=== PATIENT | male | born 1990 | race African-American/Black ===

== ENCOUNTER 2019-09-04 17:57 | Emergency (ER) | payer BC, SELFPAY ==
[2019-09-04 17:59] VITALS: BP 158/118; PULSE 118; RESP 20; TEMP 36.6; O2SAT 100
--- NOTE | 2019-09-04 18:02 | ED.SOB ---
HPI - SOB/Dyspnea General Chief Complaint: Shortness of Breath/Dyspnea Stated Complaint: SOB Time Seen by Provider: 09/04/19 18:14 Source: patient and RN notes reviewed Mode of arrival: ambulatory Limitations: no limitations History of Present Illness HPI Narrative: 29-year-old male presents with concern for shortness of breath. Reports shortness of breath started last night. He reports 2 isolated episodes of feeling short of breath. He denies cough, fever, body aches, rhinorrhea, nasal congestion, sore throat. He denies travel, exposure to any COVID-19 patients. Denies nausea, vomiting, diarrhea. Reports he started a new blood pressure medicine, hydrochlorothiazide, several days ago, and is aware that shortness of breath could be a side effect. MD elicited complaint: shortness of breath Related Data Home Medications Medication Instructions Recorded Confirmed amlodipine 10 mg PO DAILY 09/04/19 09/04/19 hydrochlorothiazide 09/04/19 09/04/19 Allergies Allergy/AdvReac Type Severity Reaction Status Date / Time No Known Allergies Allergy Verified 09/04/19 18:05 Review of Systems Review of Systems: Narrative: CONSTITUTIONAL: Denies malaise, chills, sweats, or fever. ENT: Denies rhinorrhea, congestion, sinus pain, otalgia or sore throat. CARDIOVASCULAR: Denies chest pain, palpitations, or edema. RESPIRATORY: Denies cough. Reports episodes of dyspnea. GASTROINTESTINAL: Denies abdominal pain, nausea, vomiting, diarrhea SKIN: Denies rash or itching. MUSCULOSKELETAL: Denies myalgia. NEUROLOGIC: Denies headache. All systems reviewed & are unremarkable except as noted in HPI and below PMFSH Comments At time of signature, agree with nursing past medical, surgical, social and family history. There is no relevant family history pertinent to the presenting complaint Exam Narrative: Exam Narrative: GENERAL: Well-appearing, well-nourished, and in no acute distress. HEAD: Normocephalic, atraumatic. EYES: PERRLA, conjunctivae clear ENT: Nares clear, turbinates mildly erythematous, no rhinorrhea or epistaxis. Mucous membranes moist. TM pearly jernigan with sharp light reflex bilaterally; no tragal tenderness. Oropharynx without erythema or lesions. Tonsils not enlarged and without exudate. NECK: Supple. No lymphadenopathy. CHEST: No respiratory distress. Clear to auscultation. No bony deformities, no asymmetry. Speaks in full sentences. HEART: Regular rate and rhythm. No murmur heard. SKIN: Warm, dry, no rash. NEURO: Alert and oriented x3. PSYCH: Normal mood and affect Course Course Emergency Course: Patient is aware of diagnosis, understands and agrees to treatment plan. Anticipatory guidance given. Patient agrees to follow-up as directed and is aware of reasons to seek care at the emergency department. Portions of this record may have been created with voice recognition software Vital Signs Vital signs: Vital Signs Temperature 97.8 F 09/04/19 17:59 Pulse Rate 118 H 09/04/19 17:59 Respiratory Rate 09/04/19 17:59 Blood Pressure 158/118 H 09/04/19 17:59 Pulse Oximetry 100 09/04/19 17:59 Temperature 97.8 F 09/04/19 17:59 Pulse Rate 118 H 09/04/19 17:59 Respiratory Rate 09/04/19 17:59 Blood Pressure 158/118 H 09/04/19 17:59 Pulse Oximetry 100 09/04/19 17:59 Reviewed. Patient has history of hypertension MDM - SOB/Dyspnea MDM Narrative Medical decision making narrative: Differential diagnosis considered: Coronavirus, medication side effect, strep pharyngitis, allergic rhinitis, upper respiratory tract infection, sinusitis, rhinosinusitis, nasopharyngitis. viral pharyngitis, otitis media, otitis externa, pneumonia, bronchitis, viral cough syndrome, viral syndrome, and influenza. Exam findings show no acute concerns or changes; patient is non-toxic appearing and is in no distress. Patient is appropriate for outpatient treatment and follow-up. Critical Care Time Critical Care Time Cri
== END 2019-09-04 18:28 | disposition home or self-care (01) ==
PROVIDERS: Emergency Provider Nurse Practitioner
DX: R06.02 Shortness of breath (principal); I10 Essential (primary) hypertension
CPT/HCPCS: 99201; G0463

== ENCOUNTER 2019-09-06 14:04 | Emergency (ER) | payer BC, SELFPAY ==
--- NOTE | ~2019-09-06 | XR_ITS ---
EXAMINATION: XR chest 2V 09/06/2019 14:18 INDICATION: Shortness of breath PROCEDURE: 2 view chest COMPARISON: No prior studies for comparison. FINDINGS: The lungs are clear. The cardiomediastinal silhouette is within normal limits. There are no pleural effusions. There is no pneumothorax suspected. IMPRESSION: 1: NO ACUTE CARDIOPULMONARY DISEASE. Reviewed, dictated and finalized at location A.
[2019-09-06 14:06] VITALS: BP 156/110; PULSE 124; RESP 18; TEMP 36.4; O2SAT 100
--- NOTE | 2019-09-06 14:10 | ECG_ITS ---
Measurements Intervals [place] Rate: 121 P: 48 [place]: 154 QRS: 7 QRSD: 101 T: 17 QT: 301 QTc: 429 Interpretive Statements SINUS TACHYCARDIA VOLTAGE CRITERIA FOR LVH BORDERLINE R WAVE PROGRESSION, ANTERIOR LEADS PEAKED T WAVES- CONSIDER HYPERKALEMIA OR ISCHEMIA ABNORMAL ECG Electronically Signed On 09-06-2019 15:27:44 CDT by Edward Rollins D.O.
[2019-09-06 14:27] LABS: Basophils Percent Auto 0.5 % (0.2-1.2); Eosinophils Absolute Auto 0.1 K/mm3 (0-0.3); Eosinophils Percent Auto 1.5 % (0-4.4); Hematocrit 49.7 % (42.0-52.0); Immature Granulocyte Absolute 0.01 K/mm3 (0.00-0.031); Immature Granulocyte Percent A 0.1 % (0-0.5); Lymphocytes Absolute Auto 3.35 K/mm3 (0.9-3.2); Lymphocytes Percent Auto 39.2 % (18.3-44.2); Mean Corpuscular HGB Conc 32.2 g/dl (32-36); Mean Corpuscular Hemoglobin 26.4 pg (26-34); Mean Platelet Volume 9.3 fl (7.4-10.4); Monocytes Absolute Auto 0.8 K/mm3 (0.1-0.6); Monocytes Percent Auto 9.7 % (2.6-8.5); Neutrophils Absolute Auto 4.2 K/mm3 (1.3-6.7); Platelet Count Result 365 k/mm3 (150-375); Red Blood Count 6.06 M/mm3 (4.6-6.20); Red Cell Distribution Width 13.2 % (11.5-14.5); White Blood Count 8.5 K/mm3 (4.5-10.0)
[2019-09-06 14:36] LABS: Blood Urea Nitrogen 11 mg/dL (9-20); Calcium 9.6 mg/dL (8.4-10.2); Carbon Dioxide 30 mmol/L (22-30); Chloride 96 mmol/L (98-107); Estimated CRCL calculation 97 ml/min; Estimated Glomerular Filt Rate > 60; Glucose 107 mg/dL (75-110); Potassium 3.3 mmol/L (3.4-5.0); Sodium 138 mmol/L (137-145)
--- NOTE | 2019-09-06 15:41 | ED.SOB ---
HPI - SOB/Dyspnea General Chief Complaint: Shortness of Breath/Dyspnea Stated Complaint: SOB Time Seen by Provider: 09/06/19 15:04 Source: patient Mode of arrival: ambulatory Limitations: no limitations History of Present Illness HPI Narrative: A 29 y/o male pt presents to the ED, with c/o SOB that began a couple of days ago. Pt states he was seen at urgent care for this Sx and was told to discontinue taking Hydrochlorothiazide that he was recently prescribed and to stay home for a few days and see if Sx improve. He notes that the SOB subsided, but yesterday he woke up and did not have the urge to urinate like he usually does upon waking up, but notes that he urinates because he knows he needs to empty his bladder. He also notes a decreased appetite. Pt denies fever, ABD pain, N/V/D, swelling to BLE, urinary incontinence, or hives or swelling. He states he had his blood work done last Sunday (08/29/2019) and the results were normal. MD elicited complaint: shortness of breath Pertinent past history: other (HTN) Onset (ago): day(s) Context: other (recently prescribed Hydrochlorothiazide) Associated symptoms: other (decreased appetite, no urge to urinate) Related Data Home Medications Medication Instructions Recorded Confirmed amlodipine 10 mg PO DAILY 09/04/19 09/04/19 hydrochlorothiazide 09/04/19 09/04/19 Allergies Allergy/AdvReac Type Severity Reaction Status Date / Time No Known Allergies Allergy Verified 09/06/19 14:09 Review of Systems Review of Systems: All systems reviewed & are unremarkable except as noted in HPI and below Constitutional: Constitutional: Denies fever(s) and Reports poor appetite Cardiovascular: Cardiovascular: Denies leg edema (BLE) Gastrointestinal: Gastrointestinal: Denies abdominal pain, Denies diarrhea, Denies nausea and Denies vomiting Genitourinary: Genitourinary: Denies urinary incontinence and Reports other (no urgency to urinate) Allergic/Immunologic: Allergic/Immunologic: Denies urticaria, Denies lip swelling, Denies throat swelling and Denies tongue swelling PMF Past Medical History Medical History (Updated 09/06/19 @ 15:58 by Cornelio Luna MD) Hypertension Surgical History Surgical History (Updated 09/06/19 @ 15:57 by RANJITH Michaels) Surgical history unknown Social History Social History (Updated 09/06/19 @ 15:58 by Juliane Keen [facility]) Smoking status: Unknown if ever smoked Gender identity (if verbalized by the patient): Male Exam Const: General: healthy appearing and no acute distress Nutritional Appearance: well nourished HENMT: Mouth: Yes lip normal and Yes moist mucous membranes Eyes: Conjunctivae: conjunctivae normal Pupils: Equal, round and reactive pupils present Resp: Effort & Inspection: normal respiratory effort Auscultation: clear to auscultation bilaterally Cardio: Rate: regular rate Rhythm: regular rhythm Heart sounds: no murmurs GI: GI Palp: No abdominal tenderness and Yes Soft to palpation Auscultation: normal bowel sounds Back/Spine/Pelvis: Other: Full ROM Skin: General skin exam: normal color, dry skin and other (warm) Neuro: General: patient oriented x3 (alert) Speech: normal speech Extrem: General: full ROM Psych: Mental Status: mental status grossly normal Affect: normal affect Course Vital Signs Vital signs: Vital Signs Temperature 36.4 C 09/06/19 14:06 Pulse Rate 124 H 09/06/19 14:06 Respiratory Rate 18 09/06/19 14:06 Blood Pressure 156/110 H 09/06/19 14:06 Pulse Oximetry 100 09/06/19 14:06 Temperature 36.4 C 09/06/19 14:06 Pulse Rate 87 09/06/19 16:35 Respiratory Rate 19 09/06/19 16:35 Blood Pressure 149/113 H 09/06/19 16:35 Pulse Oximetry 98 09/06/19 16:35 MDM - SOB/Dyspnea MDM Narrative Medical decision making narrative: His complaints do not raise concern for anything in particular. Labs are reassuring. BP is elevated and he will need follow-up fo
[2019-09-06 16:35] VITALS: BP 149/113; PULSE 87; RESP 19; O2SAT 98
== END 2019-09-06 16:36 | disposition home or self-care (01) ==
PROVIDERS: Emergency Medicine; Emergency Provider Emergency Medicine
DX: R63.0 Anorexia (principal); I10 Essential (primary) hypertension; R00.0 Tachycardia, unspecified; R94.31 Abnormal electrocardiogram [ECG] [EKG]
CPT/HCPCS: 36415; 71046; 80048; 85025; 93005; 99284

== ENCOUNTER 2020-10-06 11:50 | Emergency (ER) | payer OTHER, SELFPAY ==
[2020-10-06 12:00] VITALS: BP 164/98; PULSE 93; RESP 16; TEMP 36.9; O2SAT 100
--- NOTE | 2020-10-06 12:25 | ED.URI ---
HPI - URI/Sore Throat General Chief Complaint: Upper Respiratory Infection Stated Complaint: SWOLLEN TONSILS/GLANDS Source: patient Mode of arrival: ambulatory Limitations: no limitations History of Present Illness HPI Narrative: Patient is a 30 year old male who presents complaining of sore throat sudden onset this am. Patient reports feeling scratchy throat last pm but upon waking reports pain with swallowing and difficulty swallowing. Patient able to maintain secretions and airway patent. Patient denies fever, chills, body aches or other complaints. Patient denies significant medical history. He denies taking over the counter medications for pain prior to arrival. MD elicited complaint: sore throat Related Data Home Medications Medication Instructions Recorded Confirmed amlodipine 10 mg PO DAILY 09/04/19 09/04/19 hydrochlorothiazide 09/04/19 09/04/19 Allergies Allergy/AdvReac Type Severity Reaction Status Date / Time No Known Allergies Allergy Verified 09/06/19 14:09 Review of Systems Review of Systems: Narrative: CONSTITUTIONAL: Denies fever, chills, or sweats. EYES: Denies visual changes, redness, or discharge. ENT: Reports sore throat CARDIOVASCULAR: Denies chest pain, palpitations, or edema. RESPIRATORY: Denies cough or dyspnea. GASTROINTESTINAL: Denies abdominal pain, nausea, vomiting, or diarrhea. GENITOURINARY: Denies dysuria or hematuria. SKIN: Denies rash or itching. MUSCULOSKELETAL: Denies back pain, joint pain, or myalgia. NEUROLOGIC: Denies headache, numbness, dizziness, or weakness. PSYCHIATRIC: Denies anxiety or depression. [facility] Past Medical History Medical History Hypertension Surgical History Surgical History Surgical history unknown Social History Social History Smoking status: Never smoker Alcohol intake: current Alcohol use details: occasional Substance use: never Occupation/Education: occupation Gender identity (if verbalized by the patient): Male Comments At the time of signature, I have reviewed and agree with nursing past medical, surgical, social, and family history unless otherwise noted. Please see nursing chart for further information. There is no relevant family history pertinent to the presenting complaint. Exam Narrative: Exam Narrative: GENERAL: Well-appearing, well-nourished, and in no acute distress. HEAD: Normocephalic, atraumatic. EYES: EOMI. No redness or drainage. Conjunctiva are normal. ENT: Mucous membranes pink and moist. Nares clear. No rhinorrhea. Throat erythema and edema to right tonsil. Uvula midline. NECK: AROM. Supple. No lymphadenopathy. CHEST: No respiratory distress. HEART: Regular rate and rhythm. EXTREMITIES: Normal range of motion. SKIN: Warm, dry, no rash. NEURO: No focal deficits. Alert and oriented x3. Gait steady. PSYCH: Normal affect. No signs of depression or anxiety. Course Vital Signs Vital signs: Vital Signs Temperature 36.9 C 10/06/20 12:00 Pulse Rate 93 10/06/20 12:00 Respiratory Rate 16 10/06/20 12:00 Blood Pressure 164/98 H 10/06/20 12:00 Pulse Oximetry 100 10/06/20 12:00 Temperature 36.9 C 10/06/20 12:00 Pulse Rate 93 10/06/20 12:00 Respiratory Rate 16 10/06/20 12:00 Blood Pressure 164/98 H 10/06/20 12:00 Pulse Oximetry 100 10/06/20 12:00 Reviewed. Patient has not taken blood pressure medicine this a.m. Transfer Transfered to: [facility] Transfer rationale: Higher level of care Accepting physician: Dr. Parham, spoke with CALVIN Farah about patient condition. Transfer comments: Patient refuses EMS transport at this time. Patient is aware of possible complications, patient will drive self to hospital immediately. MDM - URI/Sore Throat MDM Narrative Medical decision making narrative: Patient appears
== END 2020-10-06 12:42 | disposition short-term general hospital (02) ==
PROVIDERS: Emergency Provider Nurse Practitioner; PCP Family Medicine
DX: J36 Peritonsillar abscess (principal); I10 Essential (primary) hypertension
CPT/HCPCS: 87081; 87880; 99213; G0463

== ENCOUNTER 2020-10-06 12:45 | Emergency (ER) | payer OTHER, SELFPAY ==
--- NOTE | ~2020-10-06 | CT_ITS ---
EXAMINATION: CT soft tissue neck w con DATE: 10/06/2020 15:22 INDICATION: Throat pain. TECHNIQUE: Computed tomography (CT) of the neck was performed with 75 mL Omnipaque-350 intravenous co ntrast. Automated exposure control and iterative reconstruction technique were employed. The dose-milo gth product was 625.32 mGy-cm. COMPARISON: None FINDINGS: The palatine tonsils are enlarged. There are areas of relative decreased attenuation in the palatine tonsils, consistent with phlegmon. No well-defined abscess. The epiglottis is normal. The c ervical carotid arteries are normal. There is mild bilateral internal jugular chain lymphadenopathy, likely reactive. There are mucous retention cysts in the maxillary sinuses. There is mild cervical sp ondylosis. IMPRESSION: 1. Enlarged palatine tonsils with areas of decreased attenuation, consistent with phlegmon. No well-d efined abscess. 2. Mild bilateral cervical lymphadenopathy, likely reactive. Reviewed, dictated and finalized at location B. IMPRESSION: 1. Enlarged palatine tonsils with areas of decreased attenuation, consistent wi th phlegmon. No well-defined abscess. 2. Mild bilateral cervical lymphadenopathy, likely reactive.
[2020-10-06 12:51] VITALS: BP 160/94; PULSE 95; RESP 20; TEMP 36.5; O2SAT 99
--- NOTE | 2020-10-06 13:27 | ED.GENADULT ---
HPI - General Adult General Chief complaint: Upper Respiratory Infection <CALVIN Bullock Last Filed: 10/06/20 14:51> Stated complaint: swollen tonsils <CALVIN Bullock Last Filed: 10/06/20 14:51> Time Seen by Provider: 10/06/20 13:26 <Joe Mobley PA-C - Last Filed: 10/06/20 14:51> History of Present Illness HPI narrative: Patient is a 30-year-old male who comes to the ED today complaining of a sore throat. Patient reports that yesterday he developed a sore throat that he says is pretty mild. However it does feel swollen and he says that when he eats solid foods it feels like they are getting stuck. He is not vomiting. He is tolerating liquids fine. He denies previous history of similar symptoms, denies any fevers, denies any coughing or sinus congestion or any other symptoms. Was seen in urgent care prior to arrival and was sent into the ED today for possible peritonsillar abscess. <CALVIN Bullock Last Filed: 10/06/20 14:51> Related Data Home medications: Home Medications Medication Instructions Recorded Confirmed amlodipine 10 mg PO DAILY 09/04/19 09/04/19 hydrochlorothiazide 09/04/19 09/04/19 <Joe Mobley PA-C - Last Filed: 10/06/20 14:51> Allergies/adverse reactions: Allergies Allergy/AdvReac Type Severity Reaction Status Date / Time No Known Allergies Allergy Verified 10/06/20 12:54 <CALVIN Bullock Last Filed: 10/06/20 14:51> Review of Systems Constitutional: Constitutional: Reports as per HPI, Denies fever(s), Denies night sweats and Denies weakness <CALVIN Bullock Last Filed: 10/06/20 14:51> ENT: Reports as per HPI <CALVIN Bullock Last Filed: 10/06/20 14:51> Comments: See HPI <CALVIN Bullock Last Filed: 10/06/20 14:51> Cardiovascular: Cardiovascular: Denies chest pain, Denies edema, Denies leg edema, Denies dyspnea and Denies orthopnea <Joe MobleyRENETTADayna Last Filed: 10/06/20 14:51> Respiratory: Respiratory: Denies cough and Denies dyspnea <Joe MobleyRENETTA - Last Filed: 10/06/20 14:51> Gastrointestinal: Gastrointestinal: Denies abdominal pain, Denies constipation, Denies diarrhea, Denies nausea and Denies vomiting <Joe MobleyRENETTA - Last Filed: 10/06/20 14:51> Musculoskeletal: Musculoskeletal: Denies abnormal gait, Denies back pain, Denies numbness and Denies tingling <Joe MobleyRENETTA - Last Filed: 10/06/20 14:51> Neurologic: Denies Abnormal speech present, Denies abnormal gait, Denies numbness, Denies tingling and Denies weakness <Joe MobleyRENETTADayna - Last Filed: 10/06/20 14:51> Psychiatric: Psychiatric: Denies homicidal ideation and Denies suicidal ideation <Joe MarquesRENETTA read Last Filed: 10/06/20 14:51> [facility] Past Medical History Medical History: Medical History Hypertension <Joe MobleyRENETTADayna Last Filed: 10/06/20 14:51> Surgical History Surgical History: Surgical History Surgical history unknown <Joe MarquesdusCALVIN Last Filed: 10/06/20 14:51> Social History Social History: Social History Smoking status: Never smoker Alcohol intake: current Substance use: never Gender identity (if verbalized by the patient): Male <Joe MarquesCALVIN raed Last Filed: 10/06/20 14:51> Exam Const: General: cooperative, healthy appearing, comfortable, no acute distress, well developed, alert, awake and Physically active <Joe Mobley PA-C - Last Filed: 10/06/20 14:51> Orientation/consciousness: patient oriented x3 <Joe Mobley PA-C - Last Filed: 10/06/20 14:51> Other: Pleasant, well-appearing, no distress <Joe Mobley PA-C - Last Filed: 10/06/20 14:51> HENMT: He
[2020-10-06 14:52] LABS: Basophils Absolute Auto 0.1 K/mm3 (0.0-0.1); Basophils Percent Auto 0.6 % (0.2-1.2); Eosinophils Absolute Auto 0.3 K/mm3 (0-0.3); Eosinophils Percent Auto 3.1 % (0-4.4); Hematocrit 44.3 % (42.0-52.0); Hemoglobin 14.8 g/dL (14.0-18.0); Immature Granulocyte Absolute 0.02 K/mm3 (0.00-0.031); Immature Granulocyte Percent A 0.2 % (0-0.5); Lymphocytes Absolute Auto 1.59 K/mm3 (0.9-3.2); Lymphocytes Percent Auto 18.2 % (18.3-44.2); Mean Corpuscular HGB Conc 33.4 g/dl (32-36); Mean Corpuscular Hemoglobin 27.7 pg (26-34); Mean Platelet Volume 9.1 fl (7.4-10.4); Monocytes Percent Auto 11.5 % (2.6-8.5); Neutrophils Absolute Auto 5.8 K/mm3 (1.3-6.7); Neutrophils Percent Auto 66.4 % (45.5-73.1); Platelet Count Result 298 k/mm3 (150-375); Red Blood Count 5.34 M/mm3 (4.6-6.20); Red Cell Distribution Width 13.6 % (11.5-14.5); White Blood Count 8.8 K/mm3 (4.5-10.0)
[2020-10-06] MEDS: SODIUM CHLORIDE 0.9% IV 1,000 ML 999 ML IV CONT (14:54)
[2020-10-06] MEDS: KETOROLAC 30 MG/ML VIAL (*BKC) IV PUSH (14:55)
[2020-10-06 15:02] LABS: Anion Gap 6 mmol/L (8-16); Blood Urea Nitrogen 11 mg/dL (9-20); Calcium 8.9 mg/dL (8.4-10.2); Carbon Dioxide 32 mmol/L (22-30); Chloride 100 mmol/L (98-107); Estimated CRCL calculation 100 ml/min; Estimated Glomerular Filt Rate > 60; Glucose 91 mg/dL (75-110); Potassium 3.7 mmol/L (3.4-5.0); Sodium 138 mmol/L (137-145)
[2020-10-06 15:09] VITALS: BP 152/80; PULSE 78; RESP 18; O2SAT 99
[2020-10-06] MEDS: AMPICILLIN SULB 3 GM/NS 100 ML 3 GM/100 ML VIAL IVPB (16:34)
[2020-10-06 17:31] VITALS: BP 132/78; PULSE 78; RESP 18; O2SAT 99
== END 2020-10-06 17:33 | disposition home or self-care (01) ==
PROVIDERS: Emergency Provider Emergency Medicine; PCP Family Medicine
DX: J03.90 Acute tonsillitis, unspecified (principal); I10 Essential (primary) hypertension
CPT/HCPCS: 36415; 70491; 80048; 85025; 87081; 87880; 96361; 96365; 96375; 99284; J0295; J1100; J1885; J7030; Q9967

== ENCOUNTER 2020-12-20 13:37 | Emergency (ER) | payer SELFPAY ==
[2020-12-20 13:50] VITALS: BP 166/107; PULSE 86; RESP 16; TEMP 36.4; O2SAT 100
--- NOTE | 2020-12-20 14:28 | ED.GENADULT ---
HPI - General Adult General Chief complaint: Unspecified Stated complaint: refill for prescription Source: patient and RN notes reviewed Limitations: no limitations History of Present Illness HPI narrative: The obese patient, who is a drinker/non-smoker, presents with medication refill. Patient states has been out if his blood pressure pills for several weeks and now wants a refill-as he has no current physician. He is asymptomatic without CP, S OB, head?chest?abdominal pain, lateralizing weakness, speech?visual changes. He is uncertain of his past blood pressures, today is 160s / 100s Related Data Home Medications Medication Instructions Recorded Confirmed escitalopram oxalate mg 12/20/20 losartan-hydrochlorothiazide tablet 12/20/20 Allergies Allergy/AdvReac Type Severity Reaction Status Date / Time No Known Allergies Allergy Verified 10/06/20 12:54 Review of Systems Review of Systems: Narrative: General/Constitutional: No weight loss,fever Eyes: N0: Redness,discharge Ears/Nose/Throat: No: Epistaxis,ear discharge Respiratory: Denies: Hemoptysis Gastrointestinal: No Vomiting, Bleeding-rectal Skin: No Lumps, eruption Neurologic: No Focal Weakness,Sz Hematologic: Denies: Petechiae/Purpura Psychiatric: No: Suicida ideationl All Other Systems: Reviewed and Negative [facility] Past Medical History Medical History Hypertension Surgical History Surgical History Surgical history unknown Social History Social History Smoking status: Never smoker Alcohol intake: current Substance use: never Gender identity (if verbalized by the patient): Male Comments At time of signature, agree with nursing past medical, surgical, social and family history. There is no relevant family history pertinent to the presenting complaint Exam Narrative: Exam Narrative: General Appearance: Well appearing, No distress Conjunctiva clear Mouth/Throat: Normal appearing, Normal lips, Supple Respiratory: Airway patent, No respiratory distress Cardiovascular: RRR Musculoskeletal: Full ROM Skin: Warm, Dry Neurological: A&O x3, CN II-X intact Psychiatric: Normal mood, Normal affect Course Vital Signs Vital signs: Vital Signs Temperature 97.6 F 12/20/20 13:50 Pulse Rate 86 12/20/20 13:50 Respiratory Rate 16 12/20/20 13:50 Blood Pressure 166/107 H 12/20/20 13:50 Pulse Oximetry 100 12/20/20 13:50 Temperature 97.6 F 12/20/20 13:50 Pulse Rate 86 12/20/20 13:50 Respiratory Rate 16 12/20/20 13:50 Blood Pressure 166/107 H 12/20/20 13:50 Pulse Oximetry 100 12/20/20 13:50 Medical Decision Making Vital Signs Vital Signs: Vital Signs Temperature 97.6 F 12/20/20 13:50 Pulse Rate 86 12/20/20 13:50 Respiratory Rate 16 12/20/20 13:50 Blood Pressure 166/107 H 12/20/20 13:50 Pulse Oximetry 100 12/20/20 13:50 Temperature 97.6 F 12/20/20 13:50 Pulse Rate 86 12/20/20 13:50 Respiratory Rate 16 12/20/20 13:50 Blood Pressure 166/107 H 12/20/20 13:50 Pulse Oximetry 100 12/20/20 13:50 Discharge Plan Discharge Clinical Impression: Medical non-compliance Hypertension Qualifiers: Hypertension type: unspecified Qualified Code(s): I10 - Essential (primary) hypertension Patient Disposition: Home, Self-Care Condition: Stable Instructions: Hypertension (ED) Prescriptions: New losartan-hydrochlorothiazide 100-25 mg tablet 1 tablet PO DAILY Qty: 60 RF: 3 No Action losartan-hydrochlorothiazide 100-25 mg tablet RF: 0 escitalopram oxalate 10 mg tablet RF: 0 Follow-up/Referrals: UNKNOWN,DOCTOR [Primary Care Provider] -
== END 2020-12-20 14:20 | disposition home or self-care (01) ==
PROVIDERS: Emergency Provider Emergency Medicine
DX: I10 Essential (primary) hypertension (principal); Z91.14 Patient's other noncompliance with medication regimen
CPT/HCPCS: 99211; G0463

== ENCOUNTER 2022-05-08 15:48 | Emergency (ER) | payer SELFPAY ==
[2022-05-08 15:54] VITALS: BP 159/102; PULSE 97; RESP 16; TEMP 37; O2SAT 99
--- NOTE | 2022-05-08 17:13 | ED.GENADULT ---
HPI - General Adult General Chief complaint: Abdominal Pain Stated complaint: numbness in stomach Time Seen by Provider: 05/08/22 16:53 History of Present Illness HPI narrative: 32-year-old male presents to the emergency room with multiple complaints. Patient reports issues with insomnia over the past 3 weeks, stating that he does not feel that he has slept restfully in the last 4 days. Patient has a history of hypertension and anxiety, and has been getting treatment from an online physician for his anxiety. Patient is taking Lexapro which she states does not help with his anxiety or his insomnia. Patient also complains of brain fog and abdominal numbness , which have been been exacerbated due to the lack of sleep. Patient endorses snoring, and feeling sleepy throughout the day. Related Data Home Medications Medication Instructions Recorded Confirmed escitalopram oxalate 10 mg tablet mg 12/20/20 losartan 100 tablet 12/20/20 mg-hydrochlorothiazide 25 mg tablet Allergies Allergy/AdvReac Type Severity Reaction Status Date / Time No Known Allergies Allergy Verified 10/06/20 12:54 Review of Systems Review of Systems: CONSTITUTIONAL: Denies fever, chills, or sweats. EYES: Denies visual changes, redness, or discharge. ENT: Denies rhinorrhea, congestion, sore throat, or otalgia. CARDIOVASCULAR: Denies chest pain, palpitations, or edema. RESPIRATORY: Denies cough or dyspnea. GASTROINTESTINAL: Denies abdominal pain, nausea, vomiting, or diarrhea. GENITOURINARY: Denies dysuria or hematuria. SKIN: Denies rash or itching. MUSCULOSKELETAL: Denies back pain, joint pain, or myalgia. NEUROLOGIC: Denies headache, numbness, dizziness, or weakness. PSYCHIATRIC: Reports PMFSH Past Medical History Medical History Hypertension Surgical History Surgical History Surgical history unknown Social History Social History Smoking status: Never smoker Alcohol intake: current Alcohol use details: occasional Substance use: never Gender identity (if verbalized by the patient): Male Exam Narrative: GENERAL: Well-appearing, well-nourished, no physical limitations, and in no acute distress. HEAD: Normocephalic, atraumatic. EYES: Conjunctivae normal, PERRLA and EOMI. NECK: Supple. No adenopathy or masses. CHEST: Clear to auscultation. No respiratory distress. No wheezes rales or rhonchi. HEART: Regular rate and rhythm. No murmur heard. Normal peripheral pulses. ABDOMEN: Soft, nontender, nondistended, normal active bowel sounds. EXTREMITIES: Normal range of motion. No edema. No clubbing or cyanosis SKIN: Warm, dry, no rash. No noted wounds NEURO: No focal deficits. Alert and oriented x3. MAEW. CN's II-XI intact bilaterally, normal gait PSYCH: Cooperative. Normal mood and affect. Course Vital Signs Vital signs: Vital Signs Temperature 37.0 C 05/08/22 15:54 Pulse Rate 97 05/08/22 15:54 Respiratory Rate 16 05/08/22 15:54 Blood Pressure 159/102 H 05/08/22 15:54 Pulse Oximetry 99 05/08/22 15:54 Temperature 37.0 C 05/08/22 15:54 Pulse Rate 97 05/08/22 15:54 Respiratory Rate 16 05/08/22 15:54 Blood Pressure 159/102 H 05/08/22 15:54 Pulse Oximetry 99 05/08/22 15:54 Medical Decision Making Vital Signs Vital Signs: Vital Signs Temperature 37.0 C 05/08/22 15:54 Pulse Rate 97 05/08/22 15:54 Respiratory Rate 16 05/08/22 15:54 Blood Pressure 159/102 H 05/08/22 15:54 Pulse Oximetry 99 05/08/22 15:54 Temperature 37.0 C 05/08/22 15:54 Pulse Rate 97 05/08/22 15:54 Respiratory Rate 16 05/08/22 15:54 Blood Pressure 159/102 H 05/08/22 15:54 Pulse Oximetry 99 05/08/22 15:54 Discharge Plan Discharge Clinical Impression: Insomnia Patient Disposition: Home, Self-Care Cond
== END 2022-05-08 17:29 | disposition home or self-care (01) ==
PROVIDERS: Emergency Provider Nurse Practitioner Family
DX: G47.00 Insomnia, unspecified (principal); I10 Essential (primary) hypertension
CPT/HCPCS: 99283

== ENCOUNTER 2022-05-29 15:45 | Outpatient (CLI) | payer SELFPAY ==
[2022-05-29 18:58] LABS: Alanine Aminotransferase 35 U/L (6-50); Albumin Level 4.2 g/dL (3.5-5.1); Alkaline Phosphatase 106 U/L (38-126); Anion Gap 5 mmol/L (8-16); Aspartate Amino Transferase 40 U/L (17-59); Basophils Percent Auto 0.5 % (0.2-1.2); Bilirubin,Total 0.3 mg/dL (0.2-1.3); Blood Urea Nitrogen 10 mg/dL (9-20); Calcium 8.1 mg/dL (8.4-10.2); Carbon Dioxide 30 mmol/L (22-30); Chloride 101 mmol/L (98-107); Eosinophils Absolute Auto 0.2 K/mm3 (0-0.3); Eosinophils Percent Auto 2.8 % (0-4.4); Estimated Glomerular Filt Rate > 60; Glucose 109 mg/dL (65-110); Hematocrit 43.7 % (42.0-52.0); Hemoglobin 13.9 g/dL (14.0-18.0); Immature Granulocyte Absolute 0.01 K/mm3 (0.00-0.031); Immature Granulocyte Percent A 0.2 % (0-0.5); Lymphocytes Absolute Auto 2.68 K/mm3 (0.9-3.2); Mean Corpuscular HGB Conc 31.8 g/dl (32-36); Mean Corpuscular Hemoglobin 26.9 pg (26-34); Mean Corpuscular Volume 84.5 fl (80-100); Mean Platelet Volume 9.5 fl (7.4-10.4); Monocytes Absolute Auto 0.8 K/mm3 (0.1-0.6); Monocytes Percent Auto 12.5 % (2.6-8.5); Neutrophils Absolute Auto 2.8 K/mm3 (1.3-6.7); Platelet Count Result 319 k/mm3 (150-375); Potassium 3.5 mmol/L (3.4-5.0); Red Blood Count 5.17 M/mm3 (4.6-6.20); Sodium 136 mmol/L (137-145); White Blood Count 6.5 K/mm3 (4.5-10.0)
[2022-05-29 21:12] LABS: Vitamin D 25 Hydroxy < 12.8 ng/mL
== END 2022-05-29 15:46 | disposition home or self-care (01) ==
LOC: ANHGOSHLAB 15:46
PROVIDERS: PCP Family Medicine; Visit Provider Family Medicine
DX: Z00.00 Encounter for general adult medical examination without abnormal findings (principal); E55.9 Vitamin D deficiency, unspecified; R73.03 Prediabetes; I10 Essential (primary) hypertension; G47.00 Insomnia, unspecified
CPT/HCPCS: 36415; 80053; 82306; 83036; 84443; 85025

== ENCOUNTER 2022-05-31 12:39 | Outpatient (CLI) | payer SELFPAY ==
[2022-05-31 19:30] LABS: Cholesterol 169 mg/dL (0-200); HDL Direct 31 mg/dL; Triglycerides 88 mg/dL (<150)
[2022-05-31 19:40] LABS: LDL Cholesterol Direct 113 mg/dL
== END 2022-05-31 12:40 | disposition home or self-care (01) ==
LOC: ANHGOSHLAB 12:39
PROVIDERS: PCP Family Medicine; Visit Provider Family Medicine
DX: Z13.220 Encounter for screening for lipoid disorders (principal)
CPT/HCPCS: 36415; 80061

== ENCOUNTER 2022-07-25 08:16 | Outpatient (CLI) | payer SELFPAY ==
--- NOTE | 2022-07-31 19:48 | WPDHOMESLEEP ---
Sleep Study - Home Unattended Date of Study: 07/25/22 Ordering Provider: Susannah Muse DO Interpreting Provider: Susannah Muse DO Home Sleep Study Type: Watch PAT Height: 1.8 m Weight: 104.326 kg Body Mass Index: 32.1 Neck Circumference (inches): 18 [place]: 0 Reason for Sleep Study Insomnia Sleep History The patient is a 32-year-old male with hypertension, anxiety and eczema that had a sleep study ordered for evaluation of insomnia. The patient denies awakening from sleep short of breath. He denies awakening at night with heartburn, belching or cough. He constantly snores loud enough that others complain. He occasionally has trouble sleeping when he has a cold. He denies waking up gasping for air throughout the night. He denies having breathing problems at night observed by himself or others. He denies sweating excessively at night. He denies having heart palpitations or irregular heartbeats during the night. He denies falling asleep during the day and while driving. He denies sleep paralysis, cataplexy and hypnagogic / hypnopompic hallucinations. He constantly has trouble at school or work due to sleepiness. He denies feeling afraid of going to sleep. He denies having nightmares. He denies remember his dreams. He constantly has thoughts racing through his mind. He constantly feels sad or depressed. He frequently has anxiety. He denies having muscular tension. He denies noticing parts of his body jerk. He denies kicking during the night. He denies having crawling and aching feelings in his legs as well as leg pain during the night. He rarely grinds his teeth during sleep but denies awakening with morning jaw pain. He denies being bothered by pain during the day and denies being awakened by pain during the night. He denies waking up feeling stiff in the morning. He denies waking up with sore achy muscles. He denies waking up with pain in the neck, spine or other joints. He goes to bed at 11:00 p.m. on weekdays and at 1:00 a.m. on the weekends. He states that he is unable to fall asleep. He wakes up at 8:00 a.m. on weekdays and at 10:00 a.m. on the weekends. He does not think he gets any sleep throughout the entire night. He currently lives with a sister. He does not consume any caffeinated beverages within 2 hours of bedtime. He does not engage in physical exercise before bedtime. He denies reading and watching television before falling asleep. He denies taking naps in the afternoon or the evening. He will drink 1 caffeinated beverage per day. He denies tobacco, alcohol and recreational drug use. REPLACED BY [facility] Past Medical History Medical History Anxiety Depression with anxiety Essential (primary) hypertension Insomnia Prediabetes Vitamin D deficiency Surgical History Surgical History Surgical history unknown Family History Family History Father Diabetes mellitus Hypertension Heart problem Mother Hypertension Social History Social History Smoking status: Never smoker Alcohol intake: current Alcohol use details: occasional Substance use: never Lack of Transportation: No Lack of Food: Never True Current Housing: I Have Housing Concerned About Future Housing: No Difficulty Paying Gas/Electric Bills: No Difficulty Paying for Meds: No Currently Unemployed: No Education: High School Diploma/GED Difficulty w/ Childcare or Family Care: No Living arrangements: with family Occupation/Education: student Gender identity (if verbalized by the patient): Male Medications Home Medications Medication Instructions Recorded Confirmed Type triamcinolone acetonide 0.5 % 1 applic topical DAILY #30 grams 05/24/22 07/18/22 Rx topical c
[2022-07-31 20:01] VITALS: BMI 32.1
== END 2022-07-27 09:25 | disposition home or self-care (01) ==
PROVIDERS: PCP Family Medicine; Visit Provider Family Medicine
DX: G47.33 Obstructive sleep apnea (adult) (pediatric) (principal)
CPT/HCPCS: 95800

== ENCOUNTER 2022-09-08 14:06 | Outpatient (CLI) | payer OTHER, SELFPAY ==
--- NOTE | ~2022-09-08 | XR_ITS ---
EXAMINATION: XR chest 2V 09/08/2022 14:36 INDICATION: Reaction to gamma interferon PROCEDURE: 2 view chest COMPARISON: 09/06/2019 FINDINGS: The lungs are clear. The cardiomediastinal silhouette is within normal limits. There are no pleural effusions. There is no pneumothorax suspected. IMPRESSION: 1: NO ACUTE CARDIOPULMONARY DISEASE. Reviewed, dictated and finalized at location A.
== END 2022-09-08 14:07 | disposition home or self-care (01) ==
PROVIDERS: PCP Family Medicine; Visit Provider Pediatrics
DX: R76.12 Nonspecific reaction to cell mediated immunity measurement of gamma interferon antigen response without active tuberculosis (principal)
CPT/HCPCS: 71046

== ENCOUNTER 2023-03-01 23:28 | Emergency (ER) | payer SELFPAY ==
--- NOTE | ~2023-03-01 | CT_ITS ---
Non-contrast Head CT History: Facial numbness Technique: Axial non-contrast imaging of the brain was performed. Dose reduction technique was used on this scan by utilizing automated exposure control and iterative reconstruction technique. The dose -length product (DLP) was 605.33 mGy-cm. Findings: There is no evidence of intracranial hemorrhage, mass lesion, or acute infarct. Brain par enchyma appears normal. The ventricles and subarachnoid spaces are normal in size. The calvarium ap pears normal. The visualized paranasal sinuses and mastoid air cells are clear. Impression: No significant abnormality seen. Reviewed, dictated and finalized at location . Impression: No significant abnormality seen.
--- NOTE | ~2023-03-01 | XR_ITS ---
Portable chest x-ray Comparison: 09/08/2022 Clinical History: Shortness of breath Findings: Lungs are clear, without focal consolidation or pleural effusion. Cardiomediastinal silho uette is stable. Bones and soft tissues are unremarkable. Impression: Normal chest. Reviewed, dictated and finalized at location . Impression: Normal chest.
[2023-03-01 23:34] VITALS: BP 181/99; PULSE 101; RESP 16; TEMP 36.6; O2SAT 100
[2023-03-02 00:45] VITALS: PULSE 93
--- NOTE | 2023-03-02 00:45 | ECG_ITS ---
Measurements Intervals [place] Rate: 90 P: 27 NV: 151 QRS: 61 QRSD: 105 T: 52 QT: 350 QTc: 430 Interpretive Statements SINUS RHYTHM DELAYED PRECORDIAL R/S TRANSITION ST ELEVATION IN ANTEROLAT/INF LEADS- PROBABLY EARLY REPOLARIZATION ABNORMALITY BORDERLINE ECG COMPARED TO ECG 09/06/2019 14:12:00 SINUS RHYTHM NOW PRESENT Electronically Signed On 03-02-2023 6:32:41 CDT by Edward Rollins D.O.
[2023-03-02 00:46] VITALS: BP 162/99; PULSE 93; RESP 20; O2SAT 100
[2023-03-02 00:47] VITALS: BP 162/99; PULSE 94; RESP 22; O2SAT 100
[2023-03-02 02:56] VITALS: BP 133/83; PULSE 87; RESP 15; O2SAT 100
--- NOTE | 2023-03-02 03:11 | PC.NURSE ---
SEE DOWN TIME CHARTING FROM APROX [id number]. DELLA MYERS
[2023-03-02 03:13] LABS: Magnesium 2.4 mg/dL (1.6-2.3); Troponin I < 0.012 ng/mL (0.000-0.034)
--- NOTE | 2023-03-02 03:16 | ED.GENADULT ---
HPI - General Adult General Chief complaint: Unspecified Stated complaint: sob, tingling in right hand, tingling in face Time Seen by Provider: 03/02/23 01:04 History of Present Illness HPI narrative: Patient is a 33-year-old gentleman who presents the emergency department with chief complaint of shortness of breath and tingling in his hands and face. Patient reports that he is recently been diagnosed with sleep apnea reports has been working on therapy with CPAP patient states that he had an appointment scheduled with his sleep doctor but has a cancellation that was done by the doctor's office patient states that for several days he has had episodes where he is short of breath and gets tingling in his hands and also around his mouth patient states has been going on for multiple days reports that it is intermittent and reports currently it is resolved Related Data Home Medications Medication Instructions Recorded Confirmed amitriptyline 25 mg tablet 25 mg PO QHS 11/16/22 11/16/22 Allergies Allergy/AdvReac Type Severity Reaction Status Date / Time No Known Allergies Allergy Verified 03/02/23 00:45 Review of Systems Review of Systems: A 10 system review of systems was completed on the patient and is negative except for what is stated in the HPI. Nursing and ancillary documentation was reviewed. PMFSH Past Medical History Medical History Depression with anxiety Essential (primary) hypertension Insomnia Prediabetes Vitamin D deficiency Family History Family History Father Diabetes mellitus Hypertension Heart problem Mother Hypertension Social History Social History Smoking status: Never smoker Alcohol intake: current Alcohol use details: occasional Substance use: never Lack of Transportation: No Lack of Food: Never True Current Housing: I Have Housing Concerned About Future Housing: No Difficulty Paying Gas/Electric Bills: No Difficulty Paying for Meds: No Currently Unemployed: No Education: High School Diploma/GED Difficulty w/ Childcare or Family Care: No Living arrangements: with family Occupation/Education: student Gender identity (if verbalized by the patient): Male Spiritual care concerns: No Exam Narrative: GENERAL: Well-appearing, well-nourished, and in no acute distress. HEAD: Normocephalic, atraumatic. EYES: PERRLA and EOMI. ENT: Nares clear, no rhinorrhea or epistaxis. Mucous membranes moist. NECK: Supple. CHEST: Clear to auscultation. No respiratory distress. HEART: Regular rate and rhythm. No murmur heard. Normal peripheral pulses. ABDOMEN: Soft, nontender, nondistended, normal active bowel sounds. EXTREMITIES: Normal range of motion. No edema. SKIN: Warm, dry, no rash. NEURO: No focal deficits. Alert and oriented x3. PSYCH: Normal mood and affect. Course Vital Signs Vital signs: Vital Signs Temperature 36.6 C 03/01/23 23:34 Pulse Rate 101 H 03/01/23 23:34 Respiratory Rate 16 03/01/23 23:34 Blood Pressure 181/99 H 03/01/23 23:34 Pulse Oximetry 100 03/01/23 23:34 Oxygen Delivery Room Air 03/01/23 23:34 Temperature 36.6 C 03/01/23 23:34 Pulse Rate 87 03/02/23 02:56 Respiratory Rate 15 03/02/23 02:56 Blood Pressure 133/83 03/02/23 02:56 Pulse Oximetry 100 03/02/23 02:56 Oxygen Delivery Room Air 03/01/23 23:34 Medical Decision Making MDM Narrative Medical decision making narrative: Differential diagnosis includes CVA, hyperventilation, electrolyte abnormality, MARGARET Laboratory studies were obtained and the patient which showed a negative troponin the patient's potassium was slightly decreased at 3.3. Patient was given 40 mill equivalents of p.o. potassium in the emergency department. Magnesium was
[2023-03-02] MEDS: POTASSIUM CHLORIDE 20 MEQ PACKET (FOR LIQUID) 40 MEQ PO (03:25)
[2023-03-02 03:34] LABS: Basophils Percent Auto 0.5 % (0.2-1.2); Eosinophils Absolute Auto 0.2 K/mm3 (0-0.3); Eosinophils Percent Auto 2.5 % (0-4.4); Hemoglobin 14.9 g/dL (14.0-18.0); Immature Granulocyte Absolute 0.01 K/mm3 (0.00-0.031); Immature Granulocyte Percent A 0.1 % (0-0.5); Lymphocytes Absolute Auto 2.75 K/mm3 (0.9-3.2); Lymphocytes Percent Auto 36.7 % (18.3-44.2); Mean Corpuscular HGB Conc 32.4 g/dl (32-36); Mean Corpuscular Volume 83.5 fl (80-100); Monocytes Absolute Auto 1.1 K/mm3 (0.1-0.6); Monocytes Percent Auto 14.3 % (2.6-8.5); Neutrophils Absolute Auto 3.4 K/mm3 (1.3-6.7); Neutrophils Percent Auto 45.9 % (45.5-73.1); Platelet Count Result 286 k/mm3 (150-375); Red Blood Count 5.51 M/mm3 (4.6-6.20); Red Cell Distribution Width 13.2 % (11.5-14.5); White Blood Count 7.5 K/mm3 (4.5-10.0)
[2023-03-02 03:50] LABS: NT Pro B Type Natriuretic Pept < 20 pg/mL (19.9-100)
[2023-03-02 04:22] LABS: Partial Thromboplastin Time 29.7 SECONDS (22.3-36.8); Prothrombin Time 13.4 Seconds (11.1-14.7)
== END 2023-03-02 03:31 | disposition home or self-care (01) ==
PROVIDERS: Emergency Provider Emergency Medicine; PCP Family Medicine
DX: R06.00 Dyspnea, unspecified (principal); R20.2 Paresthesia of skin; E87.6 Hypokalemia; I10 Essential (primary) hypertension; R73.03 Prediabetes; E55.9 Vitamin D deficiency, unspecified; F41.8 Other specified anxiety disorders; G47.30 Sleep apnea, unspecified; G47.00 Insomnia, unspecified
CPT/HCPCS: 36415; 70450; 71045; 83735; 83880; 84484; 85025; 85610; 85730; 93005; 99284; A9270

== ENCOUNTER 2023-03-20 11:18 | Outpatient (CLI) | payer SELFPAY ==
[2023-03-20 19:10] LABS: Parathyroid Intact 85.8 pg/mL (7.5-53.5)
[2023-03-20 19:36] LABS: Hepatitis B Surface Antibody > 1000.00 s/c
[2023-03-20 19:39] LABS: Cortisol Random 2.34 ug/dL
[2023-03-20 19:44] LABS: Hepatitis B Surface Anti Res Positive
== END 2023-03-20 11:19 | disposition home or self-care (01) ==
PROVIDERS: PCP Family Medicine; Visit Provider Nurse Practitioner Family
DX: Z00.00 Encounter for general adult medical examination without abnormal findings (principal); G47.9 Sleep disorder, unspecified
CPT/HCPCS: 36415; 82330; 82533; 83970; 84443; 86706

== ENCOUNTER 2023-07-18 08:16 | Outpatient (CLI) | payer BC, SELFPAY ==
--- NOTE | 2023-07-27 19:25 | WPDSLEEPSTUD ---
Sleep Study Date of Study: 07/18/23 Ordering Provider: Susannah Muse DO Interpreting Physician: Molly Ying MD Sleep Study Type: BiPAP Titration Height: 1.78 m Weight: 104.326 kg Body Mass Index: 33.0 Neck Circumference (inches): 18 [place]: 0 Reason for Sleep Study 07/25/2022 Severe obstructive sleep apnea on a WatchPAT home sleep study, overall AHI of 32.5, desaturation down to 74% and 9.5 minutes, 2.1% of total sleep time with an SpO2 <88%. He does not feel any benefit from using APAP, continues to feel that he is awake all night every night. He used APAP up until the night of this titration, set at 5 cm to 17 cm. On his compliance data in his Mar visit, his 95th percentile pressure was 8 cm. Sleep History Baldomero Lacy is a 33-year-old man with severe obstructive sleep apnea diagnosed on a home sleep test WatchPat on July 25, 2022. His apnea-hypopnea index was 32.5 with desaturation to 74%. He has issues with paradoxical insomnia, thinks that he is truly not sleeping. He bought his APAP machine without insurance. He is not affiliated with a [facility] [employer]. He did not complete a new sleep questionnaire. Information in this section is from his initial sleep study in July 2022. He has hypertension, anxiety and eczema. The patient denies awakening from sleep short of breath.? He denies awakening at night with heartburn, belching or coughing.?He constantly snores loudly enough that others complain.? He occasionally has trouble sleeping when he has a cold.? He denies waking up gasping for air at night. He denies having breathing problems at night observed by others.? He denies sweating excessively at night.? He denies having heart palpitations or irregular heartbeats during the night.? He denies falling asleep during the day or while driving.? He denies Feeling paralyzed on falling asleep or upon awakening. He denies muscle weakness with strong emotion. He denies vivid dreamlike scenes upon awakening or falling asleep. He always has difficulties at work due to sleepiness.? He denies feeling afraid of going to sleep.? He does not have nightmares.? He does not have recall of his dreams.? He constantly has thoughts racing through his mind.??He constantly feels sad or depressed, and frequently has anxiety.? He denies having muscular tension.? He denies noticing parts of his body jerk.? He denies kicking during the night.? He denies having crawling and aching feelings in his legs or leg pain during the night.? He rarely grinds his teeth during sleep, denies awakening with morning jaw pain.? He denies being bothered by pain during the day or being awakened by pain during the night.? He denies waking up feeling stiff in the morning.? He denies waking up with sore achy muscles.? He denies waking up with pain in the neck, spine or other joints.? Normal bedtime is 11:00 p.m. on weekdays and at 1:00 a.m. on the weekends.? He has a difficult time falling asleep. He wakes up at 8:00 a.m. on weekdays and at 10:00 a.m. on the weekends.? He does not think he gets any sleep throughout the entire night.? He currently lives with a sister.? He does not consume any caffeinated beverages within 2 hours of bedtime.? He does not engage in physical exercise before bedtime.? He denies reading and watching television before falling asleep.? He denies taking naps in the afternoon or the evening.? Habits: Tobacco: none Caffeine: 1 caffeinated beverage per day.? Alcohol : none Recreational substance: none PMFSH Past Medical History Medical History Depression with anxiety Essential (primary) hypertension Insomnia MARGARET (obstructive sleep apnea) Prediabetes Vitamin D deficiency Family History Family History Father Diabetes mellitus Hypertension Heart problem Mother Hypertension Social History Social History (Reviewed 07/27/23 @ 19:2
[2023-08-06 19:23] VITALS: BMI 33.0
== END 2023-07-18 15:15 | disposition home or self-care (01) ==
LOC: ANHCSM 08:20
PROVIDERS: PCP Family Medicine; Visit Provider Family Medicine
DX: G47.33 Obstructive sleep apnea (adult) (pediatric) (principal); G47.00 Insomnia, unspecified
CPT/HCPCS: 95811

== ENCOUNTER 2023-12-13 21:57 | Emergency (ER) | payer BC, SELFPAY ==
--- NOTE | ~2023-12-13 | CT_ITS ---
Clinical Indication: Dyspnea CT Scan of the Chest with Contrast: Technique: Contiguous sections were acquired throughout the chest after intravenous administration of 100 cc of Omnipaque 350. Dose reduction technique was used on this scan by utilizing automated expos ure control and iterative reconstruction technique. The dose-length product (DLP) was 791.70 mGy-cm. Findings: There is no evidence of any significant mediastinal, hilar or axillary lymphadenopathy. There is no f illing defect in the pulmonary arterial tree to suggest pulmonary embolus. There is no evidence of ao rtic dissection or aneurysm. There is no evidence of pleural or pericardial effusion. The lungs are clear. No pulmonary nodules or infiltrates are noted. Images through the upper abdomen reveal no abnormalities. Impression: No evidence of pulmonary embolus, aortic dissection, or aortic aneurysm. Clear lungs. Reviewed, dictated and finalized at [facility]. Impression: No evidence of pulmonary embolus, aortic dissection, or aortic aneurysm. Clear lungs.
--- NOTE | ~2023-12-13 | XR_ITS ---
EXAMINATION: XR chest 2V Exam Date/Time: 12/13/2023 22:13 CDT HISTORY: SOB Comparison: 03/02/2023. RESULT: Lines, tubes, and devices: None. Lungs and pleura: Clear. Cardiomediastinal silhouette: Stable. Other: No acute osseous or upper abdominal finding. Ovoid radiopacity projecting over the stomach, p ossibly ingested medication or supplement. IMPRESSION: No acute cardiopulmonary process. Reviewed, dictated and finalized at location K.
[2023-12-13 22:10] VITALS: BP 140/98; PULSE 112; RESP 15; TEMP 36.2; O2SAT 98
[2023-12-13 23:01] LABS: Basophils Percent Auto 0.4 % (0.2-1.2); Eosinophils Absolute Auto 0.1 K/mm3 (0-0.3); Eosinophils Percent Auto 1.7 % (0-4.4); Hematocrit 45.5 % (42.0-52.0); Hemoglobin 15.2 g/dL (14.0-18.0); Immature Granulocyte Absolute 0.01 K/mm3 (0.00-0.031); Immature Granulocyte Percent A 0.1 % (0-0.5); Lymphocytes Absolute Auto 2.12 K/mm3 (0.9-3.2); Lymphocytes Percent Auto 30.4 % (18.3-44.2); Mean Corpuscular HGB Conc 33.4 g/dl (32-36); Mean Corpuscular Hemoglobin 27.3 pg (26-34); Mean Corpuscular Volume 81.8 fl (80-100); Mean Platelet Volume 8.8 fl (7.4-10.4); Monocytes Absolute Auto 0.5 K/mm3 (0.1-0.6); Monocytes Percent Auto 7.2 % (2.6-8.5); Neutrophils Absolute Auto 4.2 K/mm3 (1.3-6.7); Neutrophils Percent Auto 60.2 % (45.5-73.1); Platelet Count Result 308 k/mm3 (150-375); Red Blood Count 5.56 M/mm3 (4.6-6.20); Red Cell Distribution Width 13.6 % (11.5-14.5)
[2023-12-13 23:11] LABS: Alanine Aminotransferase 34 U/L (6-50); Albumin Level 4.7 g/dL (3.5-5.1); Alkaline Phosphatase 67 U/L (38-126); Anion Gap 7 mmol/L (4-12); Aspartate Amino Transferase 35 U/L (17-59); Bilirubin,Total 0.5 mg/dL (0.2-1.3); Blood Urea Nitrogen 12 mg/dL (9-20); Calcium 9.2 mg/dL (8.4-10.2); Carbon Dioxide 29 mmol/L (22-30); Chloride 102 mmol/L (98-107); Estimated CRCL calculation 91 ml/min; Estimated Glomerular Filt Rate > 60; Glucose 150 mg/dL (65-110); Potassium 3.7 mmol/L (3.4-5.0); Sodium 138 mmol/L (137-145)
--- NOTE | 2023-12-14 | ECG_ITS ---
Test Date: 2023-12-14 00:46:16 Measurements Intervals [place] Rate: 91 P: 28 [place]: 154 QRS: 4 QRSD: 105 T: 8 QT: 345 QTc: 426 Interpretive Statements SINUS RHYTHM EARLY REPOLARIZATION BORDERLINE ECG No previous ECG available for comparison Electronically Signed On 12-14-2023 07:26:38 CDT by Ivan Hayes M.D.
[2023-12-14 00:37] VITALS: BP 133/92; PULSE 95; PULSE 99; RESP 17; O2SAT 100
[2023-12-14] MEDS: IPRATROPIUM 0.5 MG/ALBUTEROL SULFATE 2.5 MG AMPUL.NEB 3 ML INHALATION (02:00)
[2023-12-14 02:01] VITALS: PULSE 86; RESP 16
[2023-12-14 02:07] VITALS: PULSE 84; RESP 16
[2023-12-14 02:29] LABS: NT Pro B Type Natriuretic Pept < 20 pg/mL (19.9-100); Troponin I < 0.012 ng/mL (0.000-0.034)
[2023-12-14 02:30] VITALS: BP 122/65; PULSE 90; RESP 17; O2SAT 100
--- NOTE | 2023-12-14 04:28 | ED.GENADULT ---
HPI - General Adult General Chief complaint: Shortness of Breath/Dyspnea Stated complaint: shortness of breath Time Seen by Provider: 12/14/23 01:39 History of Present Illness HPI narrative: patient is a 33-year-old gentleman who presents emergency department with chief complaint of shortness of breath. Patient states that for some time he has been feeling short of breath does not feeling well patient reports no cough reports that symptoms are worse whenever he is up ambulating. Patient reports that it is improved when he lays down patient reports that he has been diagnosed with sleep apnea but does not necessarily compliant with use of CPAP patient states that he has had no fever denies cough denies chest pain Related Data Allergies Allergy/AdvReac Type Severity Reaction Status Date / Time No Known Allergies Allergy Verified 12/14/23 00:38 Review of Systems Review of Systems: A 10 system review of systems was completed on the patient and is negative except for what is stated in the HPI. Nursing and ancillary documentation was reviewed. PMFSH Past Medical History Medical History Depression with anxiety Essential (primary) hypertension Insomnia MARGARET (obstructive sleep apnea) Prediabetes Vitamin D deficiency Family History Family History Father Diabetes mellitus Hypertension Heart problem Mother Hypertension Social History Social History Smoking status: Never smoker Alcohol intake: current Alcohol use details: occasional Substance use: never Lack of Transportation: No Lack of Food: Never True Current Housing: I Have Housing Concerned About Future Housing: No Difficulty Paying Gas/Electric Bills: No Difficulty Paying for Meds: No Currently Unemployed: No Education: High School Diploma/GED Difficulty w/ Childcare or Family Care: No Living arrangements: with family Occupation/Education: student Gender identity (if verbalized by the patient): Male Spiritual care concerns: No Exam Narrative: GENERAL: Well-appearing, well-nourished, and in no acute distress. HEAD: Normocephalic, atraumatic. EYES: PERRLA and EOMI. ENT: Nares clear, no rhinorrhea or epistaxis. Mucous membranes moist. NECK: Supple. CHEST: Clear to auscultation. No respiratory distress. HEART: Regular rate and rhythm. No murmur heard. Normal peripheral pulses. ABDOMEN: Soft, nontender, nondistended, normal active bowel sounds. EXTREMITIES: Normal range of motion. No edema. SKIN: Warm, dry, no rash. NEURO: No focal deficits. Alert and oriented x3. PSYCH: Normal mood and affect. Course Vital Signs Vital signs: Vital Signs Temperature 36.2 C L 12/13/23 22:10 Pulse Rate 112 H 12/13/23 22:10 Respiratory Rate 15 12/13/23 22:10 Blood Pressure 140/98 H 12/13/23 22:10 Pulse Oximetry 98 12/13/23 22:10 Oxygen Delivery Room Air 12/13/23 22:10 Temperature 36.2 C L 12/13/23 22:10 Pulse Rate 90 12/14/23 02:30 Respiratory Rate 17 12/14/23 02:30 Blood Pressure 122/65 12/14/23 02:30 Pulse Oximetry 100 12/14/23 02:30 Oxygen Delivery Room Air 12/14/23 00:37 Medical Decision Making [facility] Narrative Medical decision making narrative: differential diagnosis includes pneumonia, PE, ACS, sleep apnea, reactive airway disease laboratory studies were obtained on the patient showed a normal CBC normal CMP troponin was negative BNP was negative. CTA chest obtained the patient which showed no acute findings Vital Signs Vital Signs: Vital Signs Temperature 36.2 C L 12/13/23 22:10 Pulse Rate 112 H 12/13/23 22:10 Respiratory Rate 15 12/13/23 22:10 Blood Pressure 140/98 H 12/13/23 22:10 Pulse Oximetry 98 12/13/23 22:10 Oxygen Delivery Room Air 12/13/23 22:1
[2023-12-14 05:45] VITALS: BP 137/76; PULSE 67; RESP 18; O2SAT 99
== END 2023-12-14 05:46 | disposition home or self-care (01) ==
PROVIDERS: Emergency Provider Emergency Medicine
DX: R06.00 Dyspnea, unspecified (principal); I10 Essential (primary) hypertension; G47.33 Obstructive sleep apnea (adult) (pediatric); E55.9 Vitamin D deficiency, unspecified; R73.03 Prediabetes; Z79.899 Other long term (current) drug therapy; R94.31 Abnormal electrocardiogram [ECG] [EKG]
CPT/HCPCS: 36415; 71046; 71275; 80053; 83880; 84484; 85025; 93005; 94640; 99284; Q9967

== ENCOUNTER 2024-03-06 15:25 | Outpatient (CLI) | payer BC, SELFPAY ==
--- NOTE | ~2024-03-06 | US_ITS ---
EXAMINATION: US retroperitoneal comp DATE: 03/06/2024 15:54 INDICATION: Elevated serum creatinine TECHNIQUE: Multiple ultrasound grayscale images of the kidneys were obtained. COMPARISON: None. FINDINGS: The right kidney measures 8.5 x 6.0 x 5.4 cm. The left kidney measures 9.6 x 6.3 x 5.6 cm. The kidney s demonstrate normal echogenicity. There is no hydronephrosis in either kidney. No stones identified . The incompletely distended bladder is normal. IMPRESSION: 1. Normal kidneys without hydronephrosis. Reviewed, dictated and finalized at location B.
== END 2024-03-06 15:26 | disposition home or self-care (01) ==
LOC: MICIMG 15:26
DX: R09.89 Other specified symptoms and signs involving the circulatory and respiratory systems (principal)
CPT/HCPCS: 76770

== ENCOUNTER 2024-07-15 18:13 | Emergency (ER) | payer BC, SELFPAY ==
--- OUTSIDE RECORDS SUMMARY | 2024-07-15 18:15 | XMS_ITS | Clinical Summary ---
Author Organization [facility] Address [facility]. [place], [place] [id number] [place] [id number] Care Team Providers Care Ground Wirer Name Role Phone Cristine Gaona MD Primary Care Provider Allergies No known active allergies Medications ALPRAZolam (XANAX) 0.5 MG tabletIndicatio ns:Insomnia Take 1 tablet (0.5 mg total) by mouth nightly as needed for Sleep. 10 tablet 08/28/2022 Active albuterol sulfate HFA 108 (90 Base) MCG/ACT inhaler Inhale 2 puffs into the lungs every 6 (six) hours as needed for Wheezing. 18 g 03/10/2023 Active Social History Tobacco Use Types Packs/Day Years Used Date Smoking Tobacco: Never Smokeless Tobacco: Never Tobacco Cessation:Counseling Given: Not Answered Alcohol Use Standard Drinks/Week Comments Yes 0 (1 standard drink = 0.6 oz pur e alcohol) social Sex and Gender Information Value Date Recorded Sex Assigned at Not on file Legal Sex Male 9:59 AM CDT Gender Identity Not on file Sexual Orientation Not on file Last Filed Vital Signs Vital Sign Reading Time Taken Comments Blood Pressure 163/98 03/10/2023 4:12 AM CDT Pulse 98 03/10/2023 4:12 AM CDT Temperature 37.1 ??C (98.7 ??F) 03/10/2023 1:58 AM CD T Respiratory Rate 15 03/10/2023 4:12 AM CDT Oxygen Saturation 98% 03/10/2023 4:12 AM CDT Inhaled Oxygen Concentration - - Weight 113.3 kg (249 lb 12.5 oz) 03/10/2023 1:58 AM CDT Height 180.3 cm (5' 11 ) 03/10/2023 1:58 AM CDT Body Mass Index 34.84 03/10/2023 1:58 AM CDT Plan of Treatment Health Maintenance Due Date Last Done Comments Annual Physical 01/02/1991 Hepatitis C 01/02/2006 Hepatitis B Vaccines (1 of 3 - 19+ 3-dose series) 01/02/2007 COVID-19 Vaccine (2 - season) 2024 06/16/2021 Influenza Adult (#1) 2024 07/18/2022, 06/16/2021, 07/29/2019 DTaP, Tdap and Td Vaccines (7 - Td or Tdap) 06/28/2031 06/28/2021, 02/25/1993, 02/11/1991, Additional history exists HPV Vaccines Aged Out No longer eligi ble based on patient's age to complete this topic Meningococcal B Vaccine Aged Out No l onger eligible based on patient's age to complete this topic Meningococcal Vaccine Aged Out No ovi kassidy eligible based on patient's age to complete this topic Pneumococcal Vaccine: Pediatrics (0 to 5 Years) and At-Risk Patients (6 to 64 Years) Aged Out No longer eligible based on patient's age to complete this topic RSV Immunizations Under 20 Months Aged Out No longer eligible based on patient's age to complete this topic Insurance , [address] [place] [address] [employer] Care Teams Ground Wirer Relationship Specialty Start Date End Date Cristine Gaona MD [address] [place] [address] [address] [place] [address] PCP - General FAMILY PRACTICE 08/28/22
--- OUTSIDE RECORDS SUMMARY | 2024-07-15 18:15 | XMS_ITS | Continuity of Care Document ---
Author Organization [facility] Address [address] [place] [address] Phone Care Team Providers Care Mechanical Engineering Technologist Name Role Phone Mannie Vasques MD Unavailable Unavailable Advance Directives Directive Yes / No Effective Date File Name No Information Encounters Encounter Description Practice Location Reason(s) For Visit Diagnoses Date Provider Providers Copied on Encounter [facility], [address] [place], [id number], [place] tel:[phone] [facility] No Information Layo Chand. [address] [place], [place], [id number], [place]. tel:[phone] Family History Family Member Type Diagnosis Age At Onset No Information Payers Payer name Insurance type Covered constitution party ID Authoriza tion(s) No Information Social History Type Description Quantity Date Captured Comments Sex Male Smoking Status No Information Chief Complaint And Reason For Visit No Information Plan Of Treatment Date Type Action Status No Information History Of Present Illness Encounter Date Complaint History Of Prese nt Illness No Information Instructions Date Instruction Additional Infor mation No Information Assessments Type Assessment Date No Information
--- OUTSIDE RECORDS SUMMARY | 2024-07-15 18:15 | XMS_ITS | Clinical Summary ---
Author Organization [facility] Address [address] [place] [address] Care Team Providers Care Tie Maker Name Role Phone Nevaeh Rain APRN-ICE CREAM SHOP ASSOCIATE Primary Care Provider Source Comments [facility],non-owned Affiliates and Associated Physician Practices is amultiple site organization consisting of ambulatory clinics and hospital sitesin [place], [place], [place] and [place]. This disclosure is being madepursuant to the Care Everywhere program and may not contain all information available regarding this patient. Last updated 18.[facility] Allergies No known active allergies Medications * Be aware that medications may not be up to date on this document. Alwaysverify current medications with the patient. Medication Sig Dispensed Refills Start Date End Date Status losartan-hydroCHL OROthiazide (Hyzaar) 100-25 MG tablet Take 1 (one) tablet by mouth once daily 90 tablet 3 07/12/2023 Active potassium chloride ER 10 MEQ tablet Take 1 (one) tablet by mouth once daily 90 tablet 3 07/12/2023 Active Cholecalciferol (vitamin D3) 1.25 MG (61290 UT) capsuleIndication s:Low vitamin D level Take 1 (one) capsule by mouth every 7 days 12 capsule 3 11/16/2023 Active buPROPion (Wellbutrin) 75 MG tablet Take 1 (one) tablet by mouth once daily 90 tablet 02/22/2024 Active ferrous sulfate 325 (65 FE) MG tabletIndications :Iron deficiency Take 1 (one) tablet by mouth once daily Take one tablet at the same time as your Vitamin C (ascorbic acid). 90 tablet 3 04/24/2024 Active ascorbic acid (Vitamin C) 500 MG tabletIndications :Iron deficiency Take 1 (one) tablet by mouth once daily Take 1 tablet at the same time as your ferrous sulfate (iron tablet). 90 tablet 3 04/24/2024 Active zolpidem (Ambien) 5 MG tabletIndications :Chronic insomnia Take 1 (one) tablet by mouth at bedtime 30 tablet 5 04/24/2024 Active polyethylene glycol (Gavilyte-C) 240 g solution Drink half of prep solution at 5pm the night before colonoscopy. Finish the prep at 4am the day of test. 4000 mL 05/21/2024 Active pantoprazole EC (Protonix) 40 MG tabletIndications :H. pylori gastritis Take 1 (one) tablet by mouth 2 times daily for 14 days Reasons: H. pylori gastritis 28 tablet 07/03/2024 07/17/2024 Active tetracycline (Achromycin; Sumycin) 500 MG capsuleIndication s:Helicobacter Pylori Infection Take 1 (one) capsule by mouth 4 times daily - before meals & nightly for 14 days take on an empty stomach - 1 hr before or 2 hrs after food. Reasons: Infection caused by Helicobacter Pylori Bacteria 56 capsule 07/03/2024 07/17/2024 Active metroNIDAZOLE (Flagyl) 500 MG tabletIndications :H. Pylori gastritis Take 1 (one) tablet by mouth 3 times daily for 14 days Reasons: H. Pylori gastritis 42 tablet 07/03/2024 07/17/2024 Active Bismuth Subgallate 200 MGIndications:H. Pylori gastritis Take 2 (two) tablets by mouth 4 times daily for 14 days Reasons: H. Pylori gastritis 112 tablet 07/03/2024 07/17/2024 Active Active Problems Problem Noted Date Diagnosed Date Protein-deficiency anemia 07/03/2024 Overview (07/03/2024): H. Pylori gastritis Prolonged grief reaction 03/14/2024 Shift work sleep disorder 03/14/2024 Inadequate sleep hygiene 03/14/2024 Nocturia 03/14/2024 Insufficient treatment with nasal CPAP Obesity (BMI 30-39.9) 03/14/2024 Weight gain 03/14/2024 Numbness and tingling in both hands 03/14/2024 Heat intolerance 03/14/2024 Generalized anxiety disorder with panic attacks 03/14/2024 Depression 03/14/2024 Mixed obsessional thoughts and acts 03/14/2024 Chronic fatigue 03/14/2024 Restless sleeper 03/14/2024 Nocturnal sleep-related eating disorder 03/14/20 Confusional arousals 03/14/2024 Sleep drunkenness 03/14/2024 SOB (shortness of breath) on exertion 03/13/2024 Elevated serum creatinine 03/07/2024 Class 2 obesity due to exces s calories without serious comorbidity with body mass index (BMI) of 36.0 to 36.9 in adult 07/25/2023 Moderate mixed hyperlipidemia not requiring stat in therapy 07/25/2023 Paresthesia 01/31/2023 07/25/2023 Encounters Date Type Department Care Team Description 07/03/2024 Orders Only [facility] [address] [place] [address] Ras Trujillo MD 05/29/2024 10:40 AM STATEMENT CLERK Anesthesia Event [facility] [address] [place] [phone] Corinne Rollins MD Shaffer, Hannah, Anes Asst 05/29/2024 9:55 AM STATEMENT CLERK - 05/29/2024 10:40 AM STATEMENT CLERK Surgery [facility] [address] [place] [phone] Ras Trujillo MD EGD 05/29/2024 8:59 AM STATEMENT CLERK - 05/29/2024 12:22 PM STATEMENT CLERK Hospital Encounter [facility] [address] [place] [phone] Ras Trujillo MD Surgery General Discharge Disposition: Home or Self Care 05/29/2024 Travel 05/23/2024 Patient Outreach [facility] [address] [place] [phone] Liliana Singletary RN 05/21/2024 Orders Only [facility] [address] [place] [phone] Liliana Singletary RN 04/24/2024 9:20 AM STATEMENT CLERK Office Visit [facility] [address] [place] [phone] Tyrell Roche MD Iron deficiency (Primary Dx); Hypoxemia; Chronic insomnia 04/24/2024 Travel 04/23/2024 8:30 PM STATEMENT CLERK Procedure visit [facility] [address] [place] [address] Sleep related hypoxia from Last 3 Months Immunizations Name Administration Dates Next Due DTP, HISTORIC VACCINE 02/25/1993, 991,02/13/1990, 990,1988 FLU VACCINE TRI IIV3 SPLIT I M (FLUVIRIN) 07/29/2019 HEP B VACCINE, ADULT 3 DOSE 09/01/2022 INFLUENZA VACCINE, QUADR. (F LUZONE; FLULAVAL; FLUARIX; AFLURIA QUADRIVALENT; 6MO+), 0.5 ML (IIV4) 06/16/2021 MMR VACCINE 02/25/1993 MODERNA SARS-COV-2 COVID-19 VACCINE 0.25ML 06/16/2021 MUMPS 02/11/1991 POLIO OPV 02/25/1993, 1,02/13/1990, 990,1988 RUBELLA 06/22/1989 TDAP, HISTORIC VACCINE 06/28/2021 iNFLUENZA VACCINE, RECOM-WELLS, QUADR. (FLUBLOCK QUADRIVALENT; 18Y+) (RIV4) 07/18/2022 Family History Medical History Relation Name Comments Hypertension Brother 1 Hypertension Brother 2 Hypertension Brother 3 Anxiety Disorder Father CAD (Coronary Artery Disease) Father Diabetes - Type 2 Father Hypertension Father Hypertension Mother Other Mother covid Diabetes; unknown type Paternal Grandmother Hypertension Paternal Grandmother Diabetes; unknown type Paternal Uncle Hypertension Paternal Uncle Hypertension Sister 1 Hypertension Sister 2 Relation Name Status Comments Brother 1 Alive Brother 2 Alive Brother 3 Alive Father Mother Paternal Grandmother Paternal Uncle Sister 1 Alive Sister 2 Alive Social History Tobacco Use Types Packs/Day Years Used Date Smoking Tobacco: Never Smokeless Tobacco: Never Tobacco Cessation:Counseling Given: Not Answered Alcohol Use Standard Drinks/Week Comments Not Currently 0 (1 standard drink = 0.6 oz pur e alcohol) 2x/month 10-12 drinks PHQ-2 Answer Date Recorded Patient Health Questionnaire-2 Score 3 02/22/2024 Education Answer Date Recorded What is the highest level of school you have completed or the highest degree you have received? Associate degree: academic program 03/13/2024 Sex and Gender Information Value Date Recorded Sex Assigned at Not on file Gender Identity Male 07/12/2023 2:33 PM STATEMENT CLERK Sexual Orientation Not on file Last Filed Vital Signs Vital Sign Reading Time Taken Comments Blood Pressure 150/87 05/29/2024 12:14 PM STATEMENT CLERK Pulse 89 05/29/2024 12:14 PM STATEMENT CLERK Temperature 36.9 ??C (98.4 ??F) 05/29/2024 1 1:38 AM STATEMENT CLERK Respiratory Rate 18 05/29/2024 12:1 4 PM STATEMENT CLERK Oxygen Saturation 98% 05/29/2024 12: 14 PM STATEMENT CLERK Inhaled Oxygen Concentration - - Weight 117.8 kg (259 lb 12.8 oz) 05/29/2024 9:11 AM STATEMENT CLERK Height 177.8 cm (5' 10 ) 05/29/2024 9:11 AM STATEMENT CLERK Body Mass Index 37.28 05/29/2024 9:11 AM STATEMENT CLERK Plan of Treatment Upcoming Encounters Date Type Department Care Team (Late st Contact Info) Description 07/29/2024 9:00 AM STATEMENT CLERK Appointment [facility] [address] [place] [phone] 08/24/2024 1:00 PM CDT Appointment [facility] [address] [place] [phone] [place] [address] [place] [address] [address] [place] [phone] 08/27/2024 4:20 PM CDT Office Visit [facility] [address] [place] [phone] Flakita Raza APNP-ICE [employer] SHOP ASSOCIATE [address] [facility] [address] DIV OF PULMONARY/[place] [address] Health Maintenance Due Date Last Done Comments HEPATITIS C SCREENING 12/29/2005 COVID-19 VACCINE ( season) 2024 06/16/2021, 09/10/2020, 08/13/2020 INFLUENZA VACCINE (#1) 2024 , 06/16/2021, 07/29/2019 DEPRESSION SCREENING 06/18/2024 07/12/2023 DTAP/TDAP/TD VACCINES (7 - Td or Tdap) 06/28/2031 06/28/2021, 02/25/1993, 02/11/1991, Additional history exists ZOSTER VACCINE (1 of 2) 01/02/2038 HEPATITIS B VACCINE Discontinued 09/01/2022 HIV SCREENING Completed 02/26/2024 HIB VACCINE Aged Out No longer eligi ble based on patient's age to complete this topic HPV VACCINE Aged Out No longer eligi ble based on patient's age to complete this topic MENINGOCOCCAL (Group B) VACCINE Aged Out No longer eligible based on patient's age to complete this topic MENINGOCOCCAL VACCINE Aged Out No ovi kassidy eligible based on patient's age to complete this topic PNEUMOCOCCAL VACCINE Aged Out No long er eligible based on patient's age to complete this topic Procedures Procedure Name Priority Date/Time Associated Diagnosis Comments PATHOLOGY TISSUE Routine 05/29/2024 11:0 2 AM STATEMENT CLERK Iron deficiency anemia, unspecified iron deficiency anemia type EGD Routine 05/29/2024 10:37 AM STATEMENT CLERK ENDOSCOPY, COLON, SCREENING Routine 05/29/2024 10:37 AM STATEMENT CLERK ID COLONOSCOPY, DIAGNOSTIC 05/29/2024 10:35 AM STATEMENT CLERK Iron deficiency anemia, unspecified iron deficiency anemia type ID ED EGD FLEX TRANSORAL DX 05/29/2024 10:35 AM STATEMENT CLERK Iron deficiency anemia, unspecified iron deficiency anemia type ID POLYSOM 6/> YRS 4/> AIDA Routine 04/24/2024 10:49 AM STATEMENT CLERK Insomnia, unspecified type 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 Case: [id number] ? Authorizing Provider: ??Ras Trujillo MD ? Collected: ? 05/29/2024 11:02 AM ? Ordering Location: ? [facility] ?Received: ?05/29/2024 12:49 PM ? Pathologist: ? Zulay Anderson MD ? Specimens: ?? A) - Duodenum, Duodenal bx to r/o celiac ? B) - Gastric, Gastric bx to r/o H.pylori and gastritis ? C) - Polyp Descending, Descending polyp ? 05/30/2024 9:55 AM [facility] Final Diagnosis Small intestine, duodenum, biopsy (A): - No histopathologic abnormality - Intact villous and crypt architecture without increased intraepithelial lymphocytes Stomach, biopsy (B): - Chronic active gastritis with H. pylori organisms Large intestine, ascending polyp, biopsy (C): - Tubular adenoma, not present at stalk margin 05/30/2024 9:55 AM [facility] Microscopic Description and Comment Microscopic examination substantiates the final diagnosis. 05/30/2024 9:55 AM [facility] Clinical History The patient is a 34-year-old man with iron deficiency anemia. Operative procedure/findings: EGD - mild gastritis, biopsied to rule out H. 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 Colonoscopy - 12 mm descending colon polyp resected and retrieved 05/30/2024 9:55 AM [facility] Gross Description The requisition and specimen(s) are identified with the patient's name Baldomero Lacy. Received in formalin, specimen A , are 5 pink-cates tissues, 0.3-0.6 cm in greatest dimension and 1.5 x 0.3 x 0.2 cm in aggregate, submitted in toto in cassette A1. Received in formalin, specimen B , are 5 cates-white tissues, 0.1-0.5 cm in greatest dimension and 1.5 x 0.2 x 0.2 cm in aggregate, submitted in toto in cassette B1. Received in formalin, specimen C , is a 1.5 x 1.0 x 0.8 cm pink-cates polypoid tissue. The resection margin is inked green. The tissue is sectioned and entirely submitted in cassette C1. DF 05/30/2024 9:55 AM [facility] Pathologist Location at [facility] 05/30/2024 9:55 AM [facility] Disclaimer The performance characteristics of all immunohistochemical and indirect immunofluorescence stains (if any) cited in this report were determined by the Histopathology Laboratory of [facility]. Some of these tests were developed by our own laboratory and have not been cleared or approved by the US Food and Drug Administration. The FDA does not require this test to go through premarket FDA review. These tests are used for clinical purposes. They should not be regarded as investigational or for research. This laboratory is certified under the Clinical Laboratory Improvement Amendments (CLIA) as qualified to perform high complexity clinical laboratory testing. This case has been personally reviewed and interpreted by the attending (teaching) pathologist. 05/30/2024 9:55 AM STATEMENT CLERK [facility] Embedded Images 05/30/2024 9:55 AM STATEMENT CLERK [facility] Biopsy, NOS PART OF DUODENUM / Unknown 05/29/2024 11:02 AM STATEMENT CLERK 05/29/2024 12:49 PM STATEMENT CLERK Biopsy, NOS GASTRIC CONTENTS SPECIMEN / Unknown 05/29/2024 11:02 AM STATEMENT CLERK 05/29/2024 12:49 PM STATEMENT CLERK Biopsy, NOS POLYP / Unknown 05/29/2024 1 1:19 AM STATEMENT CLERK 05/29/2024 12:49 PM STATEMENT CLERK Ras Trujillo MD LAB - PATHOLOGY/CYTO LOGY ORDERABLES [facility] [address] [place] [address], [facility] [phone] * EGD (05/29/2024 10:37 AM STATEMENT CLERK) Report Endoscopy POC Endoscopy Department Report __ _ Patient Name: Baldomero Lacy ?Procedure Date: 05/29/2024 10:37 AM ?Date of : 1990 Classification: Outpatient ?Gender: Male Ethnicity: Not or ? Race: Black or __ _ Providers: ?Ras Trujillo MD Referring MD: ? Nevaeh Rain MACHINE MAINTENANCE REPAIRER-ICE CREAM SHOP ASSOCIATE (PCP), Tyrell Roche, ? (Referring MD) Procedure: ?Upper GI endoscopy Indications: ?Iron deficiency Medications: ?Monitored Anesthesia Care Description of Procedure: Pre-Anesthesia Assessment: ?- Prior to the procedure, a History and Physical ?was performed, and patient medications and ?allergies were reviewed. The patient's tolerance of ?previous anesthesia was also reviewed. The risks ?and benefits of the procedure and the sedation ?options and risks were discussed with the patient. ?All questions were answered, and informed consent ?was obtained. Prior Anticoagulants: The patient has ?taken no anticoagulant or antiplatelet agents. ASA ?Grade Assessment: II - A patient with mild systemic ?disease. After reviewing the risks and benefits, ?the patient was deemed in satisfactory condition to ?undergo the procedure. ?After obtaining informed consent, the endoscope was ?passed under direct vision. Throughout the ?procedure, the patient's blood pressure, pulse, and ?oxygen saturations were monitored continuously. The ?Endoscope was introduced through the mouth, and ?advanced to the second part of duodenum. The upper ?GI endoscopy was accomplished without difficulty. ?The patient tolerated the procedure well. ? Findings: ? The examined esophagus was normal. ? Esophagogastric landmarks were identified: the Z-line was found at 40 ? cm, the gastroesophageal junction was found at 40 cm and the site of ? hiatal narrowing was found at 40 cm from the incisors. ? Diffuse mild inflammation characterized by erosions and erythema was ? found in the gastric antrum. Biopsies were taken with a cold forceps for ? histology. ? Multiple 1 to 2 mm angioectasias with no bleeding were found in the ? gastric fundus. These may be contributing to iron deficiency. ? No other significant abnormalities were identified in a careful ? examination of the stomach. ? The examined duodenum was normal. Biopsies done to R/O celiac disease. ? The cardia and gastric fundus were normal on retroflexion. ? Estimated Blood Loss: ? Estimated blood loss was minimal. Complications: ?No immediate complications. Impression: ? - Normal esophagus. ?- Esophagogastric landmarks identified. ?- Mild gastritis. Biopsied. ?- Multiple non-bleeding angioectasias in the fundus ?of the stomach. ?- Normal examined duodenum. Biopsied Recommendation: ? - Await pathology results. ?- Monitor H&H and iron levels. If anemia develops ?would consider capsule SB exam. ?- Resume previous diet. ?- Continue present medications. ?- Return to referring physician as previously ?scheduled. ? Attending Participation: ??I personally performed the entire procedure. ? Procedure Code(s): ? --- Professional --- ? 07369, Esophagogastroduode noscopy, flexible, transoral; with biopsy, ? single or multiple Diagnosis Code(s): ?--- Professional --- ?K29.70, Gastritis, unspecified, without bleeding ?K31.819, Angiodysplasia of stomach and duodenum ?without bleeding ?D50.9, Iron deficiency anemia, unspecified CPT copyright 2021 [employer]. All rights reserved. The codes documented in this report are preliminary and upon cord splicer review may be revised to meet current compliance requirements. Ras Trujillo MD 05/29/2024 12:02:50 PM Note Initiated On: 05/29/2024 10:37 AM Number of Addenda: 0 ? [facility] ? [address] [employer] 05/29/2024 10:3 7 AM STATEMENT CLERK Ras Trujillo MD GI PROCEDURE ORDERAB LES [facility] * Endoscopy, Colon, Screening (05/29/2024 10:37 AM STATEMENT CLERK) Report Endoscopy POC Endoscopy Department Report _ Patient Name: Baldomero Lacy ?Procedure Date: 05/29/2024 10:37 AM ?Date of : 1990 Classification: Outpatient ?Gender: Male Ethnicity: Not or ? Race: Black or _ Providers: ?Ras Trujillo MD Referring MD: ? Nevaeh Rain MACHINE MAINTENANCE REPAIRER-ICE CREAM SHOP ASSOCIATE (PCP), Tyrell Roche, ? (Referring MD) Procedure: ?Colonoscopy Indications: ?Iron deficiency Medications: ?Monitored Anesthesia Care Description of Procedure: Pre-Anesthesia Assessment: ?- Prior to the procedure, a History and Physical ?was performed, and patient medications and ?allergies were reviewed. The patient's tolerance of ?previous anesthesia was also reviewed. The risks ?and benefits of the procedure and the sedation ?options and risks were discussed with the patient. ?All questions were answered, and informed consent ?was obtained. Prior Anticoagulants: The patient has ?taken no anticoagulant or antiplatelet agents. ASA ?Grade Assessment: II - A patient with mild systemic ?disease. After reviewing the risks and benefits, ?the patient was deemed in satisfactory condition to ?undergo the procedure. ?After I obtained informed consent, the scope was ?passed under direct vision. Throughout the ?procedure, the patient's blood pressure, pulse, and ?oxygen saturations were monitored continuously. The ?Colonoscope was introduced through the anus and ?advanced to the cecum, identified by appendiceal ?orifice and ileocecal valve. The colonoscopy was ?performed without difficulty. The patient tolerated ?the procedure well. The quality of the bowel ?preparation was excellent. ? Findings: ? A 12 mm polyp was found in the descending colon. The polyp was ? pedunculated. The polyp was removed with a hot snare. Resection and ? retrieval were complete. ? A few diverticula were found in the sigmoid colon. ? No other significant abnormalities were identified in a careful ? examination of the remainder of the colon. ? No mass or additional polyps seen. ? Internal hemorrhoids were found during retroflexion. The hemorrhoids ? were small. ? Estimated Blood Loss: ? Estimated blood loss: none. Complications: ?No immediate complications. Impression: ? - One 12 mm polyp in the descending colon, removed ?with a hot snare. Resected and retrieved. ?- Diverticulosis in the sigmoid colon. ?- Internal hemorrhoids. Recommendation: ? - Await pathology results. ?- Repeat colonoscopy in 5 years for surveillance. ?- Return to referring physician as previously ?scheduled. ?- Resume previous diet. ?- Continue present medications. ?- See EGD report ? Attending Participation: ??I personally performed the entire procedure. ? Procedure Code(s): ? --- Professional --- ? 43002, Colonoscopy, flexible; with removal of tumor(s), polyp(s), or ? other lesion(s) by snare technique Diagnosis Code(s): ?--- Professional --- ?D12.4, Benign neoplasm of descending colon ?K64.8, Other hemorrhoids ?D50.9, Iron deficiency anemia, unspecified ?K57.30, Diverticulosis of large intestine without ?perforation or abscess without bleeding CPT copyright 2021 [employer]. All rights reserved. The codes documented in this report are preliminary and upon cord splicer review may be revised to meet current compliance requirements. _ Ras Trujillo MD 05/29/2024 11:54:42 AM Note Initiated On: 05/29/2024 10:37 AM Number of Addenda: 0 ? [facility] ? [address] [place], [place] [id number] [place] [address] [employer] 05/29/2024 10:3 7 AM STATEMENT CLERK Ras Trujillo MD GI PROCEDURE ORDERAB LES Performing Organization Address City/State/[facility] Co de Phone Number [facility] * ID POLYSOM 6/> YRS 4/> AIDA (04/24/2024 10:49 AM STATEMENT CLERK) Narrative Tyrell Roche MD - 04/24/2024 10:49 AM STATEMENT CLERK Tyrell Roche MD ? 04/24/2024 10:50 AM [facility] Accredited by the [employer] [facility], First Floor [address] [place] [address] Telephone : [phone] ? Medical Records Patient Name: ??Baldomero Lacy : ??1990 Date of Study: ??04/23/2024 Referring Physician: ??LANNY Diaz Type of Montage: ??Respiratory Scoring System: ??[facility] FULL NIGHT DIAGNOSTIC POLYSOMNOGRAM INTERPRETATION (04/23/2024) Procedure: The polysomnogram was performed with a blood bank laboratory technologist in attendance. ??Frontal, central, and temporal EEG, EOG, submentalis EMG, oronasal thermistor airflow, nasal pressure transducer airflow, thoracic and abdominal respiratory effort by respiratory inductive plethysmography, anterior tibialis EMG, snore sensor, and pulse oximetry were monitored. ??Sleep stages, periodic limb movements, and EEG arousals were scored in 30-second epochs according to the AASM Scoring Manual. ??Apnea-hypopnea index was calculated using the recommended definition of hypopnea for scoring events. ??Data acquisition, collection, and scoring have been validated and clinically correlated. Sleep History: Mr. Baldomero Lacy, a 34 year old male, was referred to the Sleep Disorders Clinic by LANNY Diaz for the evaluation of suspected obstructive sleep apnea (MARGARET). Current Outpatient Medications: ??ascorbic acid (Vitamin C) 500 MG tablet, Take 1 (one) tablet by mouth once daily Take 1 tablet at the same time as your ferrous sulfate (iron tablet)., Disp: 90 tablet, Rfl: 3 ??buPROPion (Wellbutrin) 75 MG tablet, Take 1 (one) tablet by mouth once daily, Disp: 90 tablet, Rfl: 0 ??Cholecalciferol (vitamin D3) 1.25 MG (67682 UT) capsule, Take 1 (one) capsule by mouth every 7 days, Disp: 12 capsule, Rfl: 3 ??ferrous sulfate 325 (65 FE) MG tablet, Take 1 (one) tablet by mouth once daily Take one tablet at the same time as your Vitamin C (ascorbic acid)., Disp: 90 tablet, Rfl: 3 ??losartan-hydroCHLOROthiazide (Hyzaar) 100-25 MG tablet, Take 1 (one) tablet by mouth once daily, Disp: 90 tablet, Rfl: 3 ??potassium chloride ER 10 MEQ tablet, Take 1 (one) tablet by mouth once daily, Disp: 90 tablet, Rfl: 3 ??zolpidem (Ambien) 5 MG tablet, Take 1 (one) tablet by mouth at bedtime, Disp: 30 tablet, Rfl: 5 DIAGNOSTIC STUDY Sleep Architecture: During this diagnostic study, the patient was monitored from 10:57 pm to 6:22 am. ??The patient slept for 183.5 minutes and had decreased sleep efficiency of 41.2%. ??The patient's initial sleep latency was reduced at 5 minutes. ??The initial REM latency was prolonged at 401 minutes. The sleep architecture was as follows: ??stage N1: ??35.4%; stage N2: ??55.9%; stage N3: ??3.3%; stage REM: ??5.4%. Respiratory Analysis: The patient's overall apnea-hypopnea index (AHI) was increased at 85.3 per hour while the respiratory effort-related arousal index was increased at 8.5 per hour. ??The overall respiratory disturbance index (RDI) was 93.8 per hour. ??The supine AHI was 86.2 per hour and the supine RERA index was 8.6 per hour. ??The lateral AHI was 84.5 per hour and the lateral RERA index was 8.4 per hour. ??The REM AHI was 72 per hour while the REM RERA index was 0 per hour. ??There were 141 obstructive apneas, 15 central apneas, 9 mixed apneas, 96 hypopneas, and 26 respiratory effort-related arousals (RERA). ??There was no evidence of periodic breathing. ?? Oximetry Data: The minimum oxygen saturation was decreased at 83% during REM sleep and decreased at 79% during non-REM sleep. ??The time spent with oxygen saturation less than 90% was 88.5 minutes (48%) of the total diagnostic sleep time. Snoring Profile: Moderate snoring was detected during this study. Periodic Limb Movements: The patient's periodic limb movement index was within normal limits at 0 per hour. ?? EEG Profile: The patient's total arousal index was elevated at 94.5 per hour. ?? Virtually all of the arousals were due to respiratory events. There was no epileptiform activity during sleep. Cardiac Profile: EKG showed normal sinus rhythm. ??No clinically significant arrhythmia was noted. Parasomnias: No parasomnia was noted during this diagnostic study. IMPRESSION: Severe obstructive sleep apnea Sleep-related hypoxemia; cannot rule out sleep-related hypoventilation as cause of hypoxemia since capnography was not performed. RECOMMENDATIONS: Suggest therapeutic continuous positive airway pressure (CPAP) trial Evaluate for causes of sleep-related hypoxemia disorder (e.g., hypoventilation, ventilation-perfusion mismatch, deadspace, shunt, diffusion abnormality, etc.). Tyrell Khan. ??MD Melchor, [facility], [facility], [facility] Top Lift Trimmer, [facility] Professor of Internal Medicine Adjunct Welcome Wagon Host/Hostess of Neurology Division of Pulmonary, Critical Care, and Sleep Medicine [facility] This note was electronically signed on 04/24/2024. CC: ??NO Manzanares [address] [facility], ??[place] [address] LANNY Diaz Flakita SARABIA PROCEDUR E/MINOR SURGICAL ORDERABLES * HIV-1 HIV-2 ANTIBODY + HIV P24 AG PANEL (02/26/2024 12:56 PM CDT) HIV Screen 4th Generation w Reflex Non Reactive Non Reactive [facility] INSURANCE BILL Comment: HIV-1/HIV-2 antibodies and HIV-1 p24 antigen were NOT detected. There is no laboratory evidence of HIV infection. HIV Negative Blood BLOOD SPECIMEN / Unknown 02/26/2024 12:56 PM CDT 02/26/2024 Narrative [facility] INSURANCE BILL - 02/27/2024 8:35 PM CDT Performed at: ??[address] ??[id number] Front Sight Attacher: Isaac Galindo PhD, Phone: ??[phone] Resulting Agency Comment Lab Testing performed at: [facility] ??[facility] [id number] Nevaeh [place] LAB - CHEMISTR Y ORDERABLES [facility] INSURANCE BILL [address] [place] [address] from Last 3 Months or Most Recently Relevant to Health Maintenance Care Teams Tie Maker Relationship Specialty Start Date End Date Nevaeh Rain, MACHINE MAINTENANCE REPAIRER-ICE CREAM SHOP ASSOCIATE [address] [facility] [address] [place] [address] PCP - General Nurse Practitioner 06/27/23
--- OUTSIDE RECORDS SUMMARY | 2024-07-15 18:15 | XMS_ITS | Referral Summary ---
Author Organization [facility] Address [address] [place] [address] Care Team Providers Care Derrick Worker Well Service Name Role Phone Cristine Gaona MD Primary Care Provider Allergies No known active allergies Medications eszopiclone (LUNESTA) 2 mg tablet Take 1 tablet (2 mg total) by mouth nightly 08/21/2022 Active losartan-hydroc hlorothiazide (HYZAAR) 100-25 mg per tablet Take 1 tablet by mouth daily 08/13/2022 Active amitriptyline (ELAVIL) 25 mg tabletIndicatio ns:Numbness Take one tablet po qhs for one week, then two tablets po qhs 60 tablet 3 09/13/2022 Active Active Problems Problem Noted Date Diagnosed Date Paresthesia 01/31/2023 Social History Tobacco Use Types Packs/Day Years Used Date Smoking Tobacco: Never Tobacco Cessation:Counseling Given: Not Answered Personal Safety Answer Date Recorded Getting School Help Needed Not on file 06/25 Sex and Gender Information Value Date Recorded Sex Assigned at Not on file Legal Sex Male 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 Gender Identity Not on file Sexual Orientation Not on file Last Filed Vital Signs Vital Sign Reading Time Taken Comments Blood Pressure 137/84 01/31/2023 3:03 PM CDT Pulse 95 01/31/2023 3:03 PM CDT Temperature - - Respiratory Rate 18 01/31/2023 3:03 PM CDT Oxygen Saturation 94% 01/31/2023 3:03 PM CDT Inhaled Oxygen Concentration - - Weight 117.5 kg (259 lb) 01/31/2023 3:03 PM CDT Height 180.3 cm (5' 10.98 ) 01/31/2023 3:03 PM C DT Body Mass Index 36.14 01/31/2023 3:03 PM CDT Plan of Treatment Not on file Insurance [employer] ACCESS CHOICE * Guarantor: Baldomero Lacy Account Type Relation to Patient Date of Phone Billing Address Personal/Family Self [address] [place] [address] [employer]ESS CHOICE [address] [place] [phone] Care Teams Derrick Worker Well Service Relationship Specialty Start Date End Date Cristine Gaona MD PCP - General Family Practice 06/29/22
--- OUTSIDE RECORDS SUMMARY | 2024-07-15 18:15 | XMS_ITS | Encounter Summary ---
Author Organization [facility] Address [address] [facility] [place] [address] Care Team Providers Care Cupola Mechanic Name Role Phone Nevaeh Rain APRN-CONCRETE PRECAST MOULDER Primary Care Provider Reason for Visit * Reason Onset Date Comments MEDICATION REFILL 10/01/2023 Encounter Details Date Type Department Care Team (Late Contact Info) Description 10/01/2023 Refill [facility] [address], [address] [address] Nevaeh Rain, ASSOCIATE JUVENILE COURT JUDGE-CONCRETE PRECAST MOULDER [address] [address] MEDICATION REFILL Social History Tobacco Use Types Packs/Day Years Used Date Smoking Tobacco: Never Smokeless Tobacco: Never Alcohol Use Standard Drinks/Week Comments Yes 1 (1 standard drink = 0.6 oz pur e alcohol) occas PHQ-2 Answer Date Recorded Patient Health Questionnaire-2 Score 6 07/12/2023 Sex and Gender Information Value Date Recorded Sex Assigned at Not on file Gender Identity Male 07/12/2023 2:33 PM CONFERENCE SERVICES DIRECTOR Sexual Orientation Not on file documented as of this encounter Plan of Treatment Upcoming Encounters Date Type Department Care Team (Late Contact Info) Description 07/29/2024 9:00 AM CONFERENCE SERVICES DIRECTOR [facility]ment [facility] [address] [place] [phone] 08/24/2024 1:00 PM CDT Appointment [facility] [address] [place] [phone] Lindsay León MD [address] [facility] [address] [place] [phone] 08/27/2024 4:20 PM CDT Office Visit [facility] [address] [place] [phone] Flakita Raza APNP-CONCRETE PRECAST MOULDER [address] [facility] 2L DIV OF PULMONARY/[place] [address] documented as of this encounter Visit Diagnoses Not on filedocumented in this encounter Care Teams Cupola Mechanic Relationship Specialty Start Date End Date Nevaeh Rain APRN-CONCRETE PRECAST MOULDER [address] [place] [address] PCP - General Nurse Practitioner 06/27/23 documented as of this encounter
--- OUTSIDE RECORDS SUMMARY | 2024-07-15 18:15 | XMS_ITS | Clinical Summary ---
[facility] Organization [facility] Address [address] [place] [address] Care Team Providers Care Flower Pot Press Operator Name Role Phone Cristine Gaona MD Primary [...] Problem Noted Date Diagnosed Date Paresthesia 01/31/2023 Medical History Medical History Date Comments Hypertension Family History Medical History Relation Name Comments Diabetes Father Hypertension Father Hypertension Mother Relation Name Status Comments Father Mother Social History Tobacco Use Types Packs/Day Years Used Date Smoking Tobacco: Never Tobacco Cessation:Counseling Given: Not Answered Personal Safety Answer Date Recorded Getting School Help Needed Not on file 06/25 Sex and Gender Information Value Date Recorded Sex Assigned at Not on file Legal Sex Male 9:30 PM STEREO EQUIPMENT INSTALLER Gender Identity Not on file Sexual Orientation Not on file Obstetrics History Last Filed Vital Signs Vital Sign Reading [...] 01/31/2023 3:03 PM CDT Plan of Treatment Health Maintenance Due Date Last Done Comments Depression Screening 1990 Hepatitis C Screening 1990 Varicella Vaccines (1 of 2 - 13+ 2-dose series) 01/02/2001 Regular Well Visit/Exam 18-64 01/02/2006 Covid-19 Vaccine ( season) 2024 06/16/2021, 09/10/2020, 08/13/2020 Influenza Vaccine (#1) 2024 , 06/16/2021, 07/29/2019 DTaP/Tdap/Td Vaccine (7 - Td or Tdap) 06/28/2031 06/28/2021, 02/25/1993, 02/11/1991, Additional history exists HPV Vaccines Aged Out No longer eligi ble based on patient's age to complete this topic Pneumococcal vaccine <65 Aged Out No longer eligible based on patient's age to complete this topic Insurance [employer] * Guarantor: Baldomero Lacy Account Type Relation to Patient Date of Phone Billing Address Personal/Family Self 1990 [address] [facility] [address] [place] [address] AN[employer]M ACCESS CHOICE * Guarantor: Baldomero Lacy Account Type Relation to Patient Date of Phone Billing Address Personal/Family Self [address] [place] [address] Care Teams Flower Pot Press Operator Relationship Specialty Start Date End Date Cristine Gaona MD PCP - General Family Practice 06/29/22
--- OUTSIDE RECORDS SUMMARY | 2024-07-15 18:15 | XMS_ITS | Referral Summary ---
Author Organization [facility] Address [address] [place] [address] Care Team Providers Care Imaging Analyst Name Role Phone Nevaeh Rain APRN-DENTAL LABORATORY WORKER Primary Care Provider Source Comments [facility],non-owned Affiliates and Associated Physician Practices is amultiple site organization consisting of ambulatory clinics and hospital sitesin [place], [place], [place] and [place]. This disclosure is being madepursuant to the Care Everywhere program and may not contain all information available regarding this patient. Last updated 18.[facility] Encounters Date Type Department Care Team Description 07/03/2024 Orders Only [facility] [address] [place] [address] Ras Trujillo MD 05/29/2024 10:40 AM SUPERVISOR ELECTRONIC TESTING Anesthesia Event [facility] [address] [place] [address] Corinne Rollins MD Shaffer, Hannah, Anes Asst 05/29/2024 Travel 05/29/2024 9:55 AM SUPERVISOR ELECTRONIC TESTING - 05/29/2024 10:40 AM SUPERVISOR ELECTRONIC TESTING Surgery [facility] [address] [place] [address] Ras Trujillo MD EGD 05/29/2024 8:59 AM SUPERVISOR ELECTRONIC TESTING - 05/29/2024 12:22 PM SUPERVISOR ELECTRONIC TESTING Hospital Encounter [facility] [address] [place] [address] Ras Trujillo MD Surgery General Discharge Disposition: Home or Self Care 05/23/2024 Patient Outreach [facility] [address] [place] [address] Liliana Singletary RN 05/21/2024 Orders Only [facility] [address] [place] [address] Liliana Singletary RN 04/24/2024 Travel 04/24/2024 9:20 AM SUPERVISOR ELECTRONIC TESTING Office Visit [facility] [address] [place] [address] Tyrell Roche MD Iron deficiency (Primary Dx); Hypoxemia; Chronic insomnia 04/23/2024 8:30 PM SUPERVISOR ELECTRONIC TESTING Procedure visit [facility] [address] [place] [phone] Sleep related hypoxia from Last 3 Months Allergies No known active allergies Medications * [...] 07/12/2023 Active Cholecalciferol (vitamin D3) 1.25 MG (96651 UT) capsuleIndication s:Low vitamin D level Take [...] Restless sleeper 03/14/2024 Nocturnal sleep-related eating disorder 09/27/20 24 Confusional arousals 03/14/2024 Sleep drunkenness 03/14/2024 SOB (shortness of breath) on exertion 03/13/2024 Elevated serum creatinine 03/07/2024 Class 2 obesity due to exces s calories without serious comorbidity with body mass index (BMI) of 36.0 to 36.9 in adult 07/25/2023 Moderate mixed hyperlipidemia not requiring stat in therapy 07/25/2023 Paresthesia 01/31/2023 07/25/2023 Immunizations Name Administration Dates Next Due DTP, [...] RECOM-WELLS, QUADR. (FLUBLOCK QUADRIVALENT; 18Y+) (RIV4) 07/18/2022 Social History Tobacco Use Types Packs/Day Years [...] file Gender Identity Male 07/12/2023 2:33 PM SUPERVISOR ELECTRONIC TESTING Sexual Orientation Not on file Last Filed Vital Signs Vital Sign Reading Time Taken Comments Blood Pressure 150/87 05/29/2024 12:14 PM SUPERVISOR ELECTRONIC TESTING Pulse 89 05/29/2024 12:14 PM SUPERVISOR ELECTRONIC TESTING Temperature 36.9 ??C (98.4 ??F) 05/29/2024 1 1:38 AM SUPERVISOR ELECTRONIC TESTING Respiratory Rate 18 05/29/2024 12:1 4 PM SUPERVISOR ELECTRONIC TESTING Oxygen Saturation 98% 05/29/2024 12: 14 PM SUPERVISOR ELECTRONIC TESTING Inhaled Oxygen Concentration - - Weight 117.8 kg (259 lb 12.8 oz) 05/29/2024 9:11 AM SUPERVISOR ELECTRONIC TESTING Height 177.8 cm (5' 10 ) 05/29/2024 9:11 AM SUPERVISOR ELECTRONIC TESTING Body Mass Index 37.28 05/29/2024 9:11 AM SUPERVISOR ELECTRONIC TESTING Functional Status Functional Status Response Date of Assess ment Is person deaf or have serious hearing difficult y? No 05/29/2024 Is person blind or have serious difficulty seein g? No 05/29/2024 Does person have serious dif ficulty walking/climbing stairs? No 05/29/2024 Does person have difficulty dressing/bathing? No 05/29/2024 Does person have difficulty doing errands alone? No 05/29/2024 Cognitive Status Response Date of Assessm ent Does person have difficulty concentrating/remembering/making decisions? No 05/29/2024 Plan of Treatment Upcoming Encounters Date Type Department Care Team (Late st Contact Info) Description 07/29/2024 9:00 AM SUPERVISOR ELECTRONIC TESTING [facility] [address] [place] [address] 08/24/2024 1:00 PM CDT Appointment [facility] [address] [place] [phone] Lindsay León MD [address] [place] [phone] 08/27/2024 4:20 PM CDT Office Visit [facility] [address] [place] [address] Flakita Raza APNP-DENTAL LABORATORY WORKER [address] DIV OF PULMONARY/[place] [address] Procedures Procedure Name Priority Date/Time Associated Diagnosis Comments PATHOLOGY TISSUE Routine 05/29/2024 11:0 2 AM SUPERVISOR ELECTRONIC TESTING Iron deficiency anemia, unspecified iron deficiency anemia type EGD Routine 05/29/2024 10:37 AM SUPERVISOR ELECTRONIC TESTING ENDOSCOPY, COLON, SCREENING Routine 05/29/2024 10:37 AM SUPERVISOR ELECTRONIC TESTING TN COLONOSCOPY, DIAGNOSTIC 05/29/2024 10:35 AM SUPERVISOR ELECTRONIC TESTING Iron deficiency anemia, unspecified iron deficiency anemia type TN ED EGD FLEX TRANSORAL DX 05/29/2024 10:35 AM SUPERVISOR ELECTRONIC TESTING Iron deficiency anemia, unspecified iron deficiency anemia type TN POLYSOM 6/> YRS 4/> AIDA Routine 04/24/2024 10:49 AM SUPERVISOR ELECTRONIC TESTING Insomnia, unspecified type Prolonged grief reaction Shift [...] Results * PATHOLOGY TISSUE (05/29/2024 11:02 AM SUPERVISOR ELECTRONIC TESTING) Case Report Surgical Pathology Report ? Case: [id number] ? Authorizing Provider: ??Ras Trujillo MD ? Collected: ? 05/29/2024 11:02 AM ? Ordering Location: ? [facility] ENDOSCOPY ?Received: ?05/29/2024 12:49 PM ? Pathologist: ? Zulay Anderson MD ? Specimens: ?? A) - Duodenum, Duodenal bx to r/o celiac ? B) - Gastric, Gastric bx to r/o H.pylori and gastritis ? C) - Polyp Descending, Descending polyp ? 05/30/2024 9:55 AM [facility] Final Diagnosis Small intestine, duodenum, biopsy (A): - No histopathologic abnormality - Intact villous and crypt architecture without increased intraepithelial lymphocytes Stomach, biopsy (B): - Chronic active gastritis with H. pylori organisms Large intestine, ascending polyp, biopsy (C): - Tubular adenoma, not present at stalk margin 05/30/2024 9:55 AM [facility] Microscopic Description and Comment Microscopic examination substantiates the final diagnosis. 05/30/2024 9:55 AM [facility] Clinical History The patient is a 34-year-old man with iron deficiency anemia. Operative procedure/findings: EGD - mild gastritis, biopsied to rule out H. 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 Colonoscopy - 12 mm descending colon polyp resected and retrieved 05/30/2024 9:55 AM [facility] Gross Description The requisition and [...] in cassette C1. DF 05/30/2024 9:55 AM [facility] Pathologist Location at [facility] 05/30/2024 9:55 AM [facility] Disclaimer The performance characteristics of all immunohistochemical and indirect immunofluorescence stains (if any) cited in this report were determined by the Histopathology Laboratory of [facility]. Some of these tests were developed by [...] the attending (teaching) pathologist. 05/30/2024 9:55 AM [facility] Embedded Images 05/30/2024 9:55 AM [facility] Biopsy, NOS PART OF DUODENUM / Unknown 05/29/2024 11:02 AM SUPERVISOR ELECTRONIC TESTING 05/29/2024 12:49 PM SUPERVISOR ELECTRONIC TESTING Biopsy, NOS GASTRIC CONTENTS SPECIMEN / Unknown 05/29/2024 11:02 AM SUPERVISOR ELECTRONIC TESTING 05/29/2024 12:49 PM SUPERVISOR ELECTRONIC TESTING Biopsy, NOS POLYP / Unknown 05/29/2024 1 1:19 AM SUPERVISOR ELECTRONIC TESTING 05/29/2024 12:49 PM SUPERVISOR ELECTRONIC TESTING Ras Trujillo MD LAB - PATHOLOGY/CYTO LOGY ORDERABLES [facility] [address] [place] [address], [facility] [phone] * EGD (05/29/2024 10:37 AM SUPERVISOR ELECTRONIC TESTING) Report Endoscopy POC Endoscopy Department Report __ _ Patient Name: Baldomero Lacy ?Procedure Date: 05/29/2024 10:37 AM ?Date of : 1990 Classification: Outpatient ?Gender: Male Ethnicity: Not or ? Race: Black or __ _ Providers: ?Ras Trujillo MD Referring MD: ? Nevaeh Rain APRN-JUAN JOSE (PCP), Tyrell Roche, ? (Referring MD) Procedure: [...] Procedure Code(s): ? --- Professional --- ? 63482, Esophagogastroduode noscopy, flexible, transoral; with biopsy, ? single or multiple Diagnosis Code(s): ?--- Professional --- ?K29.70, Gastritis, unspecified, without bleeding ?K31.819, Angiodysplasia of stomach and duodenum ?without bleeding ?D50.9, Iron deficiency anemia, unspecified CPT copyright 2021 [employer] [place] [employer]. All rights reserved. The codes documented in this report are preliminary and upon sheet metal supervisor review may be revised to meet current compliance requirements. Ras Trujillo MD 05/29/2024 12:02:50 PM Note Initiated On: 05/29/2024 10:37 AM Number of Addenda: 0 ? [facility] ? [address] [place] [address] [facility] 05/29/2024 10:3 7 AM SUPERVISOR ELECTRONIC TESTING Ras Trujillo MD GI PROCEDURE ORDERAB LES [facility] * Endoscopy, Colon, Screening (05/29/2024 10:37 AM SUPERVISOR ELECTRONIC TESTING) Report Endoscopy POC Endoscopy Department Report _ Patient Name: Baldomero Lacy ?Procedure Date: 05/29/2024 10:37 AM ?Date of : 1990 Classification: Outpatient ?Gender: Male Ethnicity: Not or ? Race: Black or _ Providers: ?Ras Trujillo MD Referring MD: ? Nevahe Rain APRN-JUAN JOSE (PCP), Tyrell Roche, ? (Referring MD) Procedure: [...] Procedure Code(s): ? --- Professional --- ? 07313, Colonoscopy, flexible; with removal of tumor(s), polyp(s), or ? other lesion(s) by snare technique Diagnosis Code(s): ?--- Professional --- ?D12.4, Benign neoplasm of descending colon ?K64.8, Other hemorrhoids ?D50.9, Iron deficiency anemia, unspecified ?K57.30, Diverticulosis of large intestine without ?perforation or abscess without bleeding CPT copyright 2021 [employer] [place] [employer]. All rights reserved. The codes documented in this report are preliminary and upon sheet metal supervisor review may be revised to meet current compliance requirements. _ Ras Trujillo MD 05/29/2024 11:54:42 AM Note Initiated On: 05/29/2024 10:37 AM Number of Addenda: 0 ? [facility] ? [address] [place] [address] [facility] 05/29/2024 10:3 7 AM SUPERVISOR ELECTRONIC TESTING Ras Trujillo MD GI PROCEDURE ORDERAB LES [facility] * TN POLYSOM 6/> YRS 4/> AIDA (04/24/2024 10:49 AM SUPERVISOR ELECTRONIC TESTING) Narrative Tyrell Roche MD - 04/24/2024 10:49 AM SUPERVISOR ELECTRONIC TESTING Tyrell Roche MD ? 04/24/2024 10:50 AM [facility] Accredited by the [employer] [place] [employer] [facility], First Floor [address] [place] [place] [address] Telephone : [phone] ? Medical Records Patient Name: ??Baldomero Lacy : ??1990 Date of Study: ??04/23/2024 Referring Physician: ??LANNY Diaz Type of Montage: ??Respiratory Scoring System: ??[facility] FULL NIGHT DIAGNOSTIC POLYSOMNOGRAM INTERPRETATION (04/23/2024) Procedure: The polysomnogram was performed with a imaging technologist in attendance. ??Frontal, central, and temporal [...] Rfl: 0 ??Cholecalciferol (vitamin D3) 1.25 MG (36675 UT) capsule, Take 1 (one) capsule by [...] diffusion abnormality, etc.). Tyrell Khan. ??MD Melchor, MSP, FCCP, [facility] Pathology Tech, [facility] Professor of Internal Medicine Adjunct Stacker Straightener of Neurology Division of Pulmonary, Critical Care, and Sleep Medicine [facility] This note was electronically signed on 04/24/2024. CC: ??JAQUELIN Manzanares-JUAN JOSE [address] [facility], ??[place] [address] LANNY Diaz Flakita SARABIA PROCEDUR E/MINOR SURGICAL [...] 8:35 PM CDT Performed at: ??02 - [facility] [address], [place], [place] ??[id number] [employer] Consultant: Isaac Galindo PhD, Phone: ??[phone] Resulting Agency Comment Lab Testing performed at: [facility] ??[facility] [id number] Nevaeh Rain APRN-DENTAL LABORATORY WORKER LAB - CHEMISTR Y ORDERABLES [facility] INSURANCE BILL [address] [place] [address] from Last 3 Months or Most Recently Relevant to Health Maintenance Care Teams Imaging Analyst Relationship Specialty Start Date End Date Nevaeh Rain, APPLIANCE SALES ASSOCIATE-DENTAL LABORATORY WORKER [address] [facility] [address] [place] [address] PCP - General Nurse Practitioner 06/27/23
--- OUTSIDE RECORDS SUMMARY | 2024-07-15 18:15 | XMS_ITS | Patient Health Summary ---
Author Organization [facility] Address [address] [place] [address] Care Team Providers Care Ceo And Co Founder Name Role Phone Nevaeh Rain APRN-COTTON GINNER Primary Care Provider Note from [facility],non-owned Affiliates and Associated Physician Practices is amultiple site organization consisting of ambulatory clinics and hospital sitesin [place], [place], [place] and [place]. This disclosure is being madepursuant to the Care Everywhere program and may not contain all information available regarding this patient. Last updated 18.[facility] Allergies No known active allergies Medications * Be aware that medications may not be up to date on this document. Alwaysverify current medications with the patient. * losartan-hydroCHLOROthiazide (Hyzaar) 100-25 MG tablet(Started 07/12/2023) Take 1 (one) tablet by mouth once daily 3 refills by 07/11/2024 * potassium chloride ER 10 MEQ tablet(Started 07/12/2023) Take 1 (one) tablet by mouth once daily 3 refills by 07/11/2024 * Cholecalciferol (vitamin D3) 1.25 MG (11609 UT) capsule(Started 11/16/2023) Take 1 (one) capsule by mouth every 7 days 3 refills by 11/15/2024 * buPROPion (Wellbutrin) 75 MG tablet(Started 02/22/2024) Take 1 (one) tablet by mouth once daily * ferrous sulfate 325 (65 FE) MG tablet(Started 04/24/2024) Take 1 (one) tablet by mouth once daily Take one tablet at the same time as your Vitamin C (ascorbic acid). 3 refills by 04/24/2025 * ascorbic acid (Vitamin C) 500 MG tablet(Started 04/24/2024) Take 1 (one) tablet by mouth once daily Take 1 tablet at the same time as your ferrous sulfate (iron tablet). 3 refills by 04/24/2025 * zolpidem (Ambien) 5 MG tablet(Started 04/24/2024) Take 1 (one) tablet by mouth at bedtime 5 refills by 10/21/2024 * polyethylene glycol (Gavilyte-C) 240 g solution(Started 05/21/2024) Drink half of prep solution at 5pm the night before colonoscopy. Finish the prep at 4am the day of test. * pantoprazole EC (Protonix) 40 MG tablet(Started 07/03/2024) Take 1 (one) tablet by mouth 2 times daily for 14 days Reasons: H. pylori gastritis * tetracycline (Achromycin; Sumycin) 500 MG capsule(Started 07/03/2024) Take 1 (one) capsule by mouth 4 times daily - before meals & nightly for 14 days take on an empty stomach - 1 hr before or 2 hrs after food. Reasons: Infection caused by Helicobacter Pylori Bacteria * metroNIDAZOLE (Flagyl) 500 MG tablet(Started 07/03/2024) Take 1 (one) tablet by mouth 3 times daily for 14 days Reasons: H. Pylori gastritis * Bismuth Subgallate 200 MG(Started 07/03/2024) Take 2 (two) tablets by mouth 4 times daily for 14 days Reasons: H. 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 (FLUZONE; FLULAVAL; FLUARIX; AFLURIA QUADRIVALENT; 6MO+), 0.5 ML (IIV4)(Given 06/16/2021) * MMR VACCINE(Given 02/25/1993) * MODERNA SARS-COV-2 COVID-19 VACCINE 0.25ML(Given 06/16/2021) * MUMPS(Given 02/11/1991) * POLIO OPV(Given 02/25/1993, 02/11/1991, 02/13/1990, 06/22/1989, 1988) * RUBELLA(Given 06/22/1989) * TDAP, HISTORIC VACCINE(Given 06/28/2021) * iNFLUENZA VACCINE, RECOM-WELLS, QUADR. (FLUBLOCK QUADRIVALENT; 18Y+) (RIV4)(Given 07/18/2022) Social History Tobacco Use Types Packs/Day Years [...] file Gender Identity Male 07/12/2023 2:33 PM ENFORCEMENT SAFETY OFFICER Sexual Orientation Not on file Last Filed Vital Signs Vital Sign Reading Time Taken Comments Blood Pressure 150/87 05/29/2024 12:14 PM ENFORCEMENT SAFETY OFFICER Pulse 89 05/29/2024 12:14 PM ENFORCEMENT SAFETY OFFICER Temperature 36.9 ??C (98.4 ??F) 05/29/2024 1 1:38 AM ENFORCEMENT SAFETY OFFICER Respiratory Rate 18 05/29/2024 12:1 4 PM ENFORCEMENT SAFETY OFFICER Oxygen Saturation 98% 05/29/2024 12: 14 PM ENFORCEMENT SAFETY OFFICER Inhaled Oxygen Concentration - - Weight 117.8 kg (259 lb 12.8 oz) 05/29/2024 9:11 AM ENFORCEMENT SAFETY OFFICER Height 177.8 cm (5' 10 ) 05/29/2024 9:11 AM ENFORCEMENT SAFETY OFFICER Body Mass Index 37.28 05/29/2024 9:11 AM ENFORCEMENT SAFETY OFFICER Procedures * PATHOLOGY TISSUE(Performed 05/29/2024) Performed for Iron deficiency anemia, unspecified iron deficiency anemia type * EGD(Performed 05/29/2024) * ENDOSCOPY, COLON, SCREENING(Performed 05/29/2024) * IA COLONOSCOPY, DIAGNOSTIC(Performed 05/29/2024) Performed for Iron deficiency anemia, unspecified iron deficiency anemia type * IA ED EGD FLEX TRANSORAL DX(Performed 05/29/2024) Performed for Iron deficiency anemia, unspecified iron deficiency anemia type * IA POLYSOM 6/> YRS 4/> AIDA(Performed 04/24/2024) Performed for Insomnia, unspecified type, Prolonged grief reaction, Shift work sleep disorder, Insufficient treatment with nasal CPAP, Obesity (BMI 30-39.9), Weight gain, Numbness and tingling in both hands, Generalized anxiety disorder with panic attacks, Obesity, Class II, BMI 35-39.9, Depression, unspecified depression type, Mixed obsessional thoughts and acts * MICROALB/CREAT RATIO URINE RANDOM PANEL(Performed 04/09/2024) Performed for Elevated serum creatinine * URINALYSIS REFLEX TO MICROSCOPIC NO CULTURE(Performed 04/09/2024) Performed for Elevated serum creatinine * CYSTATIN C WITH EGFR(Performed 04/09/2024) Performed for Elevated serum creatinine * VITAMIN D 25-HYDROXY(Performed 04/09/2024) Performed for Elevated serum creatinine * PTH INTACT W/O CALCIUM(Performed 04/09/2024) Performed for Elevated serum creatinine * MAGNESIUM BLOOD(Performed 04/09/2024) Performed for Elevated serum creatinine * RENAL FUNCTION PANEL(Performed 04/09/2024) Performed for Elevated serum creatinine * CBC W AUTO DIFFERENTIAL(Performed 04/09/2024) Performed for Elevated serum creatinine * CBC W AUTO DIFFERENTIAL(Performed 03/10/2024) Performed for Elevated serum creatinine * RENAL FUNCTION PANEL(Performed 03/10/2024) Performed for Elevated serum creatinine * URINALYSIS REFLEX TO MICROSCOPIC NO CULTURE(Performed 03/10/2024) Performed for Elevated serum creatinine * BASIC METABOLIC PANEL (CALCIUM TOTAL)(Performed 02/26/2024) Performed for Essential hypertension * TREPONEMA PALLIDUM POS REFLX RPR(Performed 02/26/2024) Performed for Screen for STD (sexually transmitted disease) * HIV-1 HIV-2 ANTIBODY + HIV P24 AG PANEL(Performed 02/26/2024) Performed for Screen for STD (sexually transmitted disease) * CHLAMYDIA + GC + TRICH DNA AMPL(Performed 02/26/2024) Performed for Screen for STD (sexually transmitted disease) * VITAMIN B12(Performed 02/26/2024) Performed for Sleep apnea, unspecified type, Chronic fatigue * IRON + TIBC + FERRITIN(Performed 02/26/2024) Performed for Sleep apnea, unspecified type, Chronic fatigue * VITAMIN D 25-HYDROXY(Performed 02/26/2024) Performed for Sleep apnea, unspecified type, Chronic fatigue * HEMOGLOBIN A1C(Performed 07/23/2023) Performed for Essential hypertension, Screening for diabetes mellitus * PTH INTACT(Performed 07/23/2023) Performed for Essential hypertension, Elevated PTHrP level * TSH(Performed 07/23/2023) Performed for Insomnia, unspecified type, Essential hypertension * LIPID PROFILE(Performed 07/23/2023) Performed for Essential hypertension * CBC W AUTO DIFFERENTIAL(Performed 07/23/2023) Performed for Essential hypertension * COMPREHENSIVE METABOLIC PANEL(Performed 07/23/2023) Performed for Essential hypertension * CARDIAC EKG ORDER(Performed 04/24/2023) * EKG 12-LEAD(Performed 04/23/2023) Performed for SOB (shortness of breath) * D-DIMER(Performed 04/23/2023) * TSH REFLEX FREE T4(Performed 04/23/2023) * COMPREHENSIVE METABOLIC PANEL(Performed 04/22/2023) * CBC W AUTO DIFFERENTIAL(Performed 04/22/2023) * EKG 12-LEAD(Performed 04/22/2023) Performed for SOB (shortness of breath) * XR CHEST 1VW PORTABLE(Performed 04/22/2023) Performed for SOB (shortness of breath) * INITIATE RT BRONCHODILATOR PROTOCOL(Performed 04/22/2023) * OXYGEN(Performed 04/22/2023) Results * PATHOLOGY TISSUE (05/29/2024 11:02 AM ENFORCEMENT SAFETY OFFICER) Case Report Surgical Pathology Report ? Case: [id number] ? Authorizing Provider: ??Ras Trujillo MD ? Collected: ? 05/29/2024 11:02 AM ? Ordering Location: ? [facility] ?Received: ?05/29/2024 12:49 PM ? Pathologist: ? Zulay Anderson MD ? Specimens: ?? A) - Duodenum, Duodenal bx to r/o celiac ? B) - Gastric, Gastric bx to r/o H.pylori and gastritis ? C) - Polyp Descending, Descending polyp ? 05/30/2024 9:55 AM [facility] Final Diagnosis Small intestine, duodenum, biopsy (A): - No histopathologic abnormality - Intact villous and crypt architecture without increased intraepithelial lymphocytes Stomach, biopsy (B): - Chronic active gastritis with H. pylori organisms Large intestine, ascending polyp, biopsy (C): - Tubular adenoma, not present at stalk margin 05/30/2024 9:55 AM [facility] Microscopic Description and Comment Microscopic examination substantiates the final diagnosis. 05/30/2024 9:55 AM [facility] Clinical History The patient is a 34-year-old man with iron deficiency anemia. Operative procedure/findings: EGD - mild gastritis, biopsied to rule out H. 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 Colonoscopy - 12 mm descending colon polyp resected and retrieved 05/30/2024 9:55 AM [facility] Gross Description The requisition and [...] in cassette C1. DF 05/30/2024 9:55 AM [facility] Pathologist Location at [facility] 05/30/2024 9:55 AM [facility] Disclaimer The performance characteristics of all immunohistochemical and indirect immunofluorescence stains (if any) cited in this report were determined by the Histopathology Laboratory of [facility]. Some of these tests were developed [...] the attending (teaching) pathologist. 05/30/2024 9:55 AM ENFORCEMENT SAFETY OFFICER [facility] Embedded Images 05/30/2024 9:55 AM ENFORCEMENT SAFETY OFFICER [facility] Biopsy, NOS PART OF DUODENUM / Unknown 05/29/2024 11:02 AM ENFORCEMENT SAFETY OFFICER 05/29/2024 12:49 PM ENFORCEMENT SAFETY OFFICER Biopsy, NOS GASTRIC CONTENTS SPECIMEN / Unknown 05/29/2024 11:02 AM ENFORCEMENT SAFETY OFFICER 05/29/2024 12:49 PM ENFORCEMENT SAFETY OFFICER Biopsy, NOS POLYP / Unknown 05/29/2024 1 1:19 AM ENFORCEMENT SAFETY OFFICER 05/29/2024 12:49 PM ENFORCEMENT SAFETY OFFICER Ras Trujillo MD LAB - PATHOLOGY/CYTO LOGY ORDERABLES Performing Organization Address City/State/[facility] Co de Phone Number [facility] [address] [place] [address], [facility] [phone] * EGD (05/29/2024 10:37 AM ENFORCEMENT SAFETY OFFICER) Report Endoscopy POC Endoscopy Department Report __ _ Patient Name: Baldomero Lacy ?Procedure Date: 05/29/2024 10:37 AM ?Date of : 1990 Classification: Outpatient ?Gender: Male Ethnicity: Not or ? Race: Black or __ _ Providers: ?Ras Trujillo MD Referring MD: ? Nevaeh Rain APRN-COTTON GINNER (PCP), Tyrell Roche, ? (Referring MD) Procedure: [...] Procedure Code(s): ? --- Professional --- ? 25720, Esophagogastroduode noscopy, flexible, transoral; with biopsy, ? single or multiple Diagnosis Code(s): ?--- Professional --- ?K29.70, Gastritis, unspecified, without bleeding ?K31.819, Angiodysplasia of stomach and duodenum ?without bleeding ?D50.9, Iron deficiency anemia, unspecified CPT copyright 2021 [employer]. All rights reserved. The codes documented in this report are preliminary and upon community marketing coordinator review may be revised to meet current compliance requirements. Ras Trujillo MD 05/29/2024 12:02:50 PM Note Initiated On: 05/29/2024 10:37 AM Number of Addenda: 0 ? [facility] ? [address] PROVATION 05/29/2024 10:3 7 AM ENFORCEMENT SAFETY OFFICER Ras Trujillo MD GI PROCEDURE ORDERAB LES [facility] PROVATION * Endoscopy, Colon, Screening (05/29/2024 10:37 AM ENFORCEMENT SAFETY OFFICER) Report Endoscopy POC Endoscopy Department Report _ [...] Procedure Code(s): ? --- Professional --- ? 13240, Colonoscopy, flexible; with removal of tumor(s), polyp(s), or ? other lesion(s) by snare technique Diagnosis Code(s): ?--- Professional --- ?D12.4, Benign neoplasm of descending colon ?K64.8, Other hemorrhoids ?D50.9, Iron deficiency anemia, unspecified ?K57.30, Diverticulosis of large intestine without ?perforation or abscess without bleeding CPT copyright 2021 [employer]. All rights reserved. The codes documented in this report are preliminary and upon community marketing coordinator review may be revised to meet current compliance requirements. _ Ras Trujillo MD 05/29/2024 11:54:42 AM Note Initiated On: 05/29/2024 10:37 AM Number of Addenda: 0 ? [facility] ? [address] [place], [place] [address] [place] [address] PROVATION 05/29/2024 10:3 7 AM ENFORCEMENT SAFETY OFFICER Ras Trujillo MD GI PROCEDURE ORDERAB LES Performing Organization Address City/State/[facility] Co de Phone Number [facility] [employer]OVATION * IA POLYSOM 6/> YRS 4/> AIDA (04/24/2024 10:49 AM ENFORCEMENT SAFETY OFFICER) Narrative Tyrell Roche MD - 04/24/2024 10:49 AM ENFORCEMENT SAFETY OFFICER Tyrell Roche MD ? 04/24/2024 10:50 AM [facility] Accredited by the [employer] [facility], First Floor [address] [place] [address] Telephone : [phone] ? Medical Records Patient Name: ?Jeison Lacy : ??1990 Date of Study: ??04/23/2024 Referring Physician: ??LANNY Diaz Type of Montage: ??Respiratory Scoring System: ??[facility] FULL NIGHT DIAGNOSTIC POLYSOMNOGRAM INTERPRETATION (04/23/2024) Procedure: The polysomnogram was performed with a arrt technologist in attendance. ??Frontal, central, and temporal [...] Rfl: 0 ??Cholecalciferol (vitamin D3) 1.25 MG (58634 UT) capsule, Take 1 (one) capsule by [...] diffusion abnormality, etc.). Tyrell Khan. ??MD Melchor, [facility], [facility] Counseling Program Leader, [facility] Professor of Internal Medicine Adjunct Sales Representative [employer] of Neurology Division of Pulmonary, Critical Care, and Sleep Medicine [facility] This note was electronically signed on 04/24/2024. CC: ??JAQUELIN Manzanares-JUAN JOSE [address] [facility], ??[place] [address] Nevaeh Rain APRN-JUAN JOSE Flakita SARABIA PROCEDUR E/MINOR SURGICAL ORDERABLES * MICROALB/CREAT RATIO URINE RANDOM PANEL (04/09/2024 4:02 PM CDT) Albumin Random Urine 24.2 Not Established ug/mL 04/09/2024 5:14 PM CDT [facility] Creatinine Urine 339.10 Not Established mg/dL 04/09/2024 5:14 PM CDT [facility] Urine Albumin/Creati nine Ratio 7 <30 mg/g 04/09/2024 5:14 PM CDT [facility] Urine URINE SPECIMEN OBTAINED BY CLEAN CATCH PROCEDURE / Unknown Collection / Unknown 04/09/2024 4:02 PM CDT 04/09/2024 4:33 PM CDT Lindsay León MD LAB - URINE CHEMISTR Y ORDERABLES [facility] [address] [place] [address], [place] [phone] * (ABNORMAL) URINALYSIS REFLEX TO MICROSCOPIC NO CULTURE (04/09/2024 4:02 PM CDT) Only the most recent of2 resultswithin the time period is included. Color UA Yellow Straw, Yellow 04/09/2024 5:13 PM [facility] Clarity UA t Cloudy(A) Clear 04/09/2024 5:13 PM [facility] Specific [place] UA 1.021 1.005 - 1.030 04/09/2024 5:13 PM [facility] pH UA 5.0 5.0 - 8.0 pH 04/09/2024 5:13 PM [facility] Protein UA Negative Negative 04/09/2024 5:13 PM [facility] Glucose UA Negative Negative 04/09/2024 5:13 PM [facility] Ketone UA Negative Negative 04/09/2024 5:13 PM [facility] Bilirubin UA Negative Negative 04/09/2024 5:13 PM [facility] Blood UA 2+(A) Negative 04/09/2024 5:13 PM [facility] Nitrite UA Negative Negative 04/09/2024 5:13 PM [facility] Leukocyte Esterase Negative Negative 04/09/2024 5:13 PM [facility] Urobilinogen UA Negative Negative mg/dL 04/09/2024 5:13 PM [facility] RBC UA 0-2 None Seen, 0-2, 3-5 /HPF 04/09/2024 5:13 PM [facility] WBC UA 0-5 None Seen, 0-5 /HPF 04/09/2024 5:13 PM [facility] Squamous Epithelial Cells UA None Seen None Seen, 0-2, 3-5 /HPF 04/09/2024 5:13 PM [facility] Mucus UA 3+ /LPF 04/09/2024 5:13 PM [facility] Hyaline Casts UA 11-20(A) None Seen, 0-2 /LPF 04/09/2024 5:13 PM [facility] Urine URINE SPECIMEN OBTAINED BY CLEAN CATCH PROCEDURE / Unknown Collection / Unknown 04/09/2024 4:02 PM CDT 04/09/2024 4:33 PM CDT Narrative [facility] - 04/09/2024 5:13 PM CDT Lindsay León MD LAB - URINALYSIS ORD ERABLES [facility] [address] [place] [address], [place] [phone] * CYSTATIN C WITH EGFR (04/09/2024 4:00 PM CDT) Creatinine 1.15 0.69 - 1.22 mg/dL 04/10/2024 11:59 PM CDT [facility] ([facility]) Cystatin C 0.82 0.61 - 0.95 mg/L 04/10/2024 11:59 PM CDT [facility] ([facility]) eGFR by CKD-EPI 101 11:59 PM CDT [facility] ([facility]) Comment: INTERPRETIVE INFORMATION: Cystatin and Creatinine with eGFR The estimated glomerular filtration rate (eGFR) was calculated using the 2020 CKD-EPI eGFR creatinine-cystatin equation. This equation is validated in individuals 18 years of age and older. Accurate estimation of GFR requires stable day-to-day filtration markers (creatinine and cystatin C). Filtration markers are influenced by non-GFR determinants including generation from cells and diet, tubular secretion and reabsorption, and extra-renal elimination. ??These determinants may affect eGFR accuracy. The eGFR is normalized to a body surface area of 1.73 square meters. GFR Categories in Chronic Kidney Disease (CKD) GFR ?GFR (mL/min/1.73 Category: ?square meters): ? Interpretation: G1 ? 90 or greater ? Normal to high* G2 ? 60-89 ? Mild decrease* G3a ?45-59 ? Mild to moderate decrease G3b ?30-44 ? Moderate to severe decrease G4 ? 15-29 ? Severe decrease G5 ? 14 or less ?Kidney failure *In the absence of evidence of kidney damage, neither GFR category G1 nor G2 fulfill the criteria for CKD (Kidney Int Suppl 2013;3:1-150) Performed By: [facility] [address] [place] [address] Negative Notcher: Huseyin Roque MD, PhD CLIA Number: [id number] Blood BLOOD SPECIMEN / Unknown Lab Venipuncture / Unknown 04/09/2024 4:00 PM CDT 04/09/2024 4:31 PM CDT Lindsay León MD LAB - CHEMISTRY NARENDRA ZELAYA Performing Organization Address [facility]/ZIP Co de Phone Number [facility] ([facility]) [address] [place] [address] * PTH INTACT W/O CALCIUM (04/09/2024 4:00 PM CDT) Pathologist [facility] PTH Intact 43.6 8.0 - 77.0 pg/mL 04/09/2024 5:10 PM CDT [facility] Blood BLOOD SPECIMEN / Unknown Lab Venipuncture / Unknown 04/09/2024 4:00 PM CDT 04/09/2024 4:37 PM CDT Lindsay León MD LAB - CHEMISTRY NARENDRA ZELAYA Performing Organization Address City/[facility]/ZIP Co de Phone Number [address] [address], [facility] [phone] * (ABNORMAL) VITAMIN D 25-HYDROXY (04/09/2024 4:00 PM CDT) Only the most recent of2 resultswithin the time period is included. Vitamin D, 25 Hydroxy >100.0(H) 30.0 - 80.0 ng/mL 04/09/2024 5:24 PM CDT [facility] Comment: The recommendations for 25-Hydroxy Vitamin D clinical decision points are as follows: ? Deficient: ? <20.0 ng/mL ? Insufficient: ? 20.0 - 29.9 ng/mL ? Sufficient: ? 30.0 - 100.0 ng/mL ? Potential Toxicity: ??>100 ng/mL Reference: The Endocrine Society Clinical Practice Guidelines. 2011 If the 25-Hydroxy Vitamin D results are inconsitent with clinical evidence, it is recommended that follow-up testing using a method such as LC/MS/MS be performed to confirm the result. ? Blood BLOOD SPECIMEN / Unknown Lab Venipuncture / Unknown 04/09/2024 4:00 PM CDT 04/09/2024 4:37 PM CDT Lindsay León MD LAB - CHEMISTRY NARENDRA ZELAYA [facility] Organization Address [facility]/State/[facility] Co de Phone Number [facility] [address] [place] [phone], [facility] [phone] * (ABNORMAL) CBC WITH DIFFERENTIAL (04/09/2024 4:00 PM CDT) Only the most recent of4 resultswithin the time period is included. WBC 5.4 4.0 - 10.7 x10E9/L 04/09/2024 4:48 PM CDT [facility] RBC Count 5.35 4.30 - 5.80 x10E12/L 04/09/2024 4:48 PM CDT [facility] Hemoglobin 14.3 13.3 - 17.5 g/dL 04/09/2024 4:48 PM CDT [facility] Hematocrit 43.1 38.7 - 51.1 % 04/09/2024 4:48 PM [facility] MCV 80.6 80.0 - 98.0 fL 04/09/2024 4:48 PM [facility] MCH 26.7 26.7 - 33.6 pg 04/09/2024 4:48 PM [facility] MCHC 33.2 31.7 - 36.3 g/dL 04/09/2024 4:48 PM [facility] RDW-CV 13.5 11.3 - 14.8 % 04/09/2024 4:48 PM [facility] Platelet Count 307 150 - 420 x10E9/L 04/09/2024 4:48 PM [facility] MPV 9.3 7.8 - 11.4 fL 04/09/2024 4:48 PM [facility] Neutrophil % 48.5 41.0 - 74.0 % 04/09/2024 4:48 PM [facility] Lymphocyte % 36.2 17.0 - 47.0 % 04/09/2024 4:48 PM [facility] Monocyte % 11.4(H) 3.0 - 11.0 % 04/09/2024 4:48 PM [facility] Eosinophil % 3.0 0.0 - 7.0 % 04/09/2024 4:48 PM [facility] Basophil % 0.7 0.0 - 1.6 % 04/09/2024 4:48 PM [facility] Immature Granulocytes % 0.2 0.0 - 1.0 % 04/09/2024 4:48 PM [facility] Neutrophil Absolute 2.63 1.60 - 7.50 x10E9/L 04/09/2024 4:48 PM [facility] Lymphocyte Absolute 1.96 1.00 - 4.40 x10E9/L 04/09/2024 4:48 PM [facility] Monocyte Absolute 0.62 0.15 - 1.00 x10E9/L 04/09/2024 4:48 PM [facility] Eosinophil Absolute 0.16 0.00 - 0.60 x10E9/L 04/09/2024 4:48 PM [facility] Basophil Absolute 0.04 0.00 - 0.13 x10E9/L 04/09/2024 4:48 PM [facility] Blood BLOOD SPECIMEN / Unknown Lab Venipuncture / Unknown 04/09/2024 4:00 PM CDT 04/09/2024 4:37 PM CDT Lindsay León MD LAB - HEMATOLOGY ORD ERABLES [facility] [address] [place] [address], [facility] [phone] * (ABNORMAL) RENAL FUNCTION PANEL (04/09/2024 4:00 PM CDT) Only the most recent of2 resultswithin the time period is included. BUN 9 7 - 26 mg/dL 04/09/2024 5:07 PM [facility] Creatinine 1.22(H) 0.71 - 1.16 mg/dL 04/09/2024 5:07 PM [facility] Sodium 140 136 - 145 mmol/L 04/09/2024 5:07 PM [facility] Potassium 3.4(L) 3.5 - 4.5 mmol/L 04/09/2024 5:07 PM [facility] Chloride 106 98 - 107 mmol/L 04/09/2024 5:07 PM [facility] CO2 25 22 - 29 mmol/L 04/09/2024 5:07 PM [facility] Glucose 86 70 - 115 mg/dL 04/09/2024 5:07 PM [facility] Albumin 3.7 3.4 - 5.0 g/dL 04/09/2024 5:07 PM [facility] Calcium 9.3 8.4 - 10.2 mg/dL 04/09/2024 5:07 PM [facility] Phosphorus 2.1(L) 2.8 - 5.1 mg/dL 04/09/2024 5:07 PM [facility] Anion Gap 9 6 - 16 04/09/2024 5:07 PM [facility] BUN/Creatinine Ratio 7 7 - 23 04/09/2024 5:07 PM CDT [facility] Osmolality Calculated 288 275 - 295 mOsm/kg 04/09/2024 5:07 PM CDT [facility] eGFR by CKD-EPI 79(L) >=90 mL/min/1.7 3 m2 04/09/2024 5:07 PM CDT [facility] Blood BLOOD SPECIMEN / Unknown Lab Venipuncture / Unknown 04/09/2024 4:00 PM CDT 04/09/2024 4:37 PM CDT Lindsay León MD LAB - CHEMISTRY NARENDRA ZELAYA [address] [address], [facility] [phone] * MAGNESIUM BLOOD (04/09/2024 4:00 PM CDT) Magnesium 1.9 1.6 - 2.6 mg/dL 04/09/2024 5:07 PM CDT [facility] Blood BLOOD SPECIMEN / Unknown Lab Venipuncture / Unknown 04/09/2024 4:00 PM CDT 04/09/2024 4:37 PM CDT Lindsay León MD LAB - CHEMISTRY NARENDRA ZELAYA [address] [address], [place] [phone] * (ABNORMAL) BASIC METABOLIC PANEL (CALCIUM TOTAL) (02/26/2024 12:57 PM CDT) Glucose 90 70 - 99 mg/dL [facility] INSURANCE BILL BUN 13 6 - 20 mg/dL [facility] INSURANCE BILL Creatinine 1.35(H) 0.76 - 1.27 mg/dL [facility] INSURANCE BILL eGFR by CKD-EPI 70 >59 mL/min/1.7 3 [facility] INSURANCE BILL BUN/Creatinine Ratio 10 9 - 20 [facility] INSURANCE BILL Sodium 140 134 - 144 mmol/L [facility] INSURANCE BILL Potassium 3.9 3.5 - 5.2 mmol/L [facility] INSURANCE BILL Chloride 101 96 - 106 mmol/L [facility] INSURANCE BILL CO2 25 20 - 29 mmol/L [facility] INSURANCE BILL Calcium 9.7 8.7 - 10.2 mg/dL [facility] INSURANCE BILL Blood BLOOD SPECIMEN / Unknown 02/26/2024 12:57 PM CDT 02/26/2024 Narrative [facility] INSURANCE BILL - 02/27/2024 7:14 AM CDT Performed at: ??01 - [facility] ??[id number] Programming Internship: Isaac Galindo PhD, Phone: ??[phone] Nevaeh Rain [employer] LAB - CHEMISTR Y ORDERABLES Performing Organization Address [facility] Co de Phone Number [facility] INSURANCE BILL [address] [place] [address] * HIV-1 HIV-2 ANTIBODY + HIV P24 AG PANEL (02/26/2024 12:56 PM CDT) [facility] Signature HIV Screen 4th Generation w Reflex Non Reactive Non Reactive [facility] INSURANCE BILL Comment: HIV-1/HIV-2 antibodies and HIV-1 p24 antigen were NOT detected. There is no laboratory evidence of HIV infection. HIV Negative Blood BLOOD SPECIMEN / Unknown 02/26/2024 12:56 PM CDT 02/26/2024 Narrative [facility] INSURANCE BILL - 02/27/2024 8:35 PM CDT Performed at: ??02 - [address] ??[id number] Programming Internship: Isaac Galindo PhD, Phone: ??[phone] Resulting Agency Comment Lab Testing performed at: [employer] ??[facility] [id number] Nevaeh Rain [employer] LAB - CHEMISTR Y ORDERABLES Performing Organization Address [facility] Co de Phone Number [facility] [address] [place] [address] * TREPONEMA PALLIDUM POS REFLX RPR (02/26/2024 12:56 PM CDT) T pallidum Antibody (TP-PA) Non Reactive Non Reactive [facility] INSURANCE BILL Blood BLOOD SPECIMEN / Unknown 02/26/2024 12:56 PM CDT 02/26/2024 Narrative [facility] INSURANCE BILL - 02/27/2024 8:35 PM CDT Performed at: ??01 - [facility] [address] ??[id number] Programming Internship: Jackie Bailey MD, Phone: ??[phone] Nevaeh D Koffi [facility] LAB - SEROLOGY ORDERABLES Performing Organization Address City/[facility]/ZIP Co de Phone Number [facility] INSURANCE BILL [address] [place] [address] * CHLAMYDIA + GC + TRICH DNA AMPL (02/26/2024 12:56 PM CDT) Pathologist [facility] Chlamydia trachomatis GREGG Negative Negative [facility] INSURANCE BILL GC DNA Probe Negative Negative [facility] INSURANCE BILL Trichomonas vaginalis by GREGG Negative Negative [facility] INSURANCE BILL Microbiology URINE / Unknown 02/26/2024 1 2:56 PM CDT 02/26/2024 Comment:UR Narrative [facility] INSURANCE BILL - 02/28/2024 7:11 AM CDT Performed at: ??01 - [facility] ??[id number] Programming Internship: Ann Gerber MD, Phone: ??[phone] Nevaeh Bill [facility] - MICROBIO LOGY ORDERABLES [facility] INSURANCE BILL [address] [place] [address] * IRON + TIBC + FERRITIN (02/26/2024 12:55 PM CDT) TIBC 355 250 - 450 ug/dL [facility] INSURANCE BILL UIBC 297 111 - 343 ug/dL [facility] INSURANCE BILL Iron 58 38 - 169 ug/dL [facility] INSURANCE BILL Iron Saturation 16 15 - 55 % [facility] INSURANCE BILL Ferritin 139 30 - 400 ng/mL [facility] INSURANCE BILL Blood BLOOD SPECIMEN / Unknown 02/26/2024 12:55 PM CDT 02/26/2024 Narrative [facility] INSURANCE BILL - 02/27/2024 12:36 PM CDT Performed at: ??01 - [employer] ??[id number] Programming Internship: Isaac Galindo PhD, Phone: ??[phone] Nevaeh Bill Rain [employer] LAB - CHEMISTR Y ORDERABLES Performing Organization Address City/[facility] Co de Phone Number [facility] INSURANCE BILL [address] [place] [address] * VITAMIN B12 (02/26/2024 12:55 PM CDT) Vitamin B12 707 232 - 1,245 pg/mL [facility] INSURANCE BILL Blood BLOOD SPECIMEN / Unknown 02/26/2024 12:55 PM CDT 02/26/2024 Narrative [facility] INSURANCE BILL - 02/28/2024 5:36 AM CDT Performed at: ??01 - [employer] ??[id number] Programming Internship: Isaac Galindo PhD, Phone: ??[phone] Nevaeh Rain [facility] LAB - CHEMISTR Y ORDERABLES Performing Organization Address City/[facility] de Phone Number [facility] INSURANCE BILL [address] [place] [address] * PTH INTACT (07/23/2023 2:19 PM ENFORCEMENT SAFETY OFFICER) PTH Intact 28 15 - 65 pg/mL [facility] INSURANCE BILL Comment:FASTING Blood BLOOD SPECIMEN / Unknown 07/23/2023 2:19 PM ENFORCEMENT SAFETY OFFICER 07/23/2023 Narrative Resulting Agency Comment Lab Testing performed at: [employer] ??[facility] [id number] Nevaeh Rain [employer] LAB - CHEMISTR Y ORDERABLES Performing Organization Address City/[facility]/ZIP Co de Phone Number [facility] INSURANCE BILL [address] [place] [address] * HEMOGLOBIN A1C (07/23/2023 2:19 PM ENFORCEMENT SAFETY OFFICER) Hemoglobin A1c 5.6 4.8 - 5.6 % [facility] INSURANCE BILL Comment: ? . ? Prediabetes: 5.7 - 6.4 ? Diabetes: >6.4 ? Glycemic control for adults with diabetes: <7.0 FASTING Blood BLOOD SPECIMEN / Unknown 07/23/2023 2:19 PM ENFORCEMENT SAFETY OFFICER 07/23/2023 Narrative Resulting Agency Comment Lab Testing performed at: [facility] [address] [facility] ??[facility] [id number] Nevaeh Rain [employer] [facility] - CHEMISTR Y ORDERABLES Performing Organization Address [facility] de Phone Number [facility] INSURANCE BILL [address] [place] [address] * (ABNORMAL) COMPREHENSIVE METABOLIC PANEL (07/23/2023 2:19 PM ENFORCEMENT SAFETY OFFICER) Only the most recent of2 resultswithin the time period is included. Glucose 91 70 - 99 mg/dL [facility] INSURANCE BILL BUN 14 6 - 20 mg/dL [facility] INSURANCE BILL Creatinine 1.29(H) 0.76 - 1.27 mg/dL [facility] INSURANCE BILL eGFR by CKD-EPI 74 >59 mL/min/1.7 3 [facility] INSURANCE BILL BUN/Creatinine Ratio 11 9 - 20 [facility] INSURANCE BILL Sodium 140 134 - 144 mmol/L [facility] INSURANCE BILL Potassium 3.9 3.5 - 5.2 mmol/L [facility] INSURANCE BILL Chloride 101 96 - 106 mmol/L [facility] INSURANCE BILL CO2 18(L) 20 - 29 mmol/L [facility] INSURANCE BILL Calcium 9.8 8.7 - 10.2 mg/dL [facility] INSURANCE BILL Protein Total 7.7 6.0 - 8.5 g/dL [facility] INSURANCE BILL Albumin 4.4 4.1 - 5.1 g/dL [facility] INSURANCE BILL Globulin Total 3.3 1.5 - 4.5 g/dL [facility] INSURANCE BILL Albumin/Globulin Ratio 1.3 1.2 - 2.2 [facility] INSURANCE BILL Bilirubin Total 0.3 0.0 - 1.2 mg/dL [facility] INSURANCE BILL Alkaline Phosphatase 89 44 - 121 IU/L [facility] INSURANCE BILL AST 29 0 - 40 IU/L [facility] INSURANCE BILL ALT 39 0 - 44 IU/L [facility] INSURANCE BILL Comment:FASTING Blood BLOOD SPECIMEN / Unknown 07/23/2023 2:19 PM ENFORCEMENT SAFETY OFFICER 07/23/2023 Narrative Resulting Agency Comment Lab Testing performed at: [employer] [facility] ??[facility] [id number] Nevaeh Rain [employer] [facility] - CHEMISTR Y ORDERABLES Performing Organization Address City/[facility] Co de Phone Number [facility] INSURANCE BILL [address] [place] [address] * TSH (07/23/2023 2:19 PM ENFORCEMENT SAFETY OFFICER) TSH 2.680 0.450 - 4.500 uIU/mL [facility] INSURANCE BILL Comment:FASTING Blood BLOOD SPECIMEN / Unknown 07/23/2023 2:19 PM ENFORCEMENT SAFETY OFFICER 07/23/2023 Narrative Resulting Agency Comment Lab Testing performed at: [facility] ??[facility] [id number] Nevaeh Rain [employer] [facility] - CHEMISTR Y ORDERABLES [facility] INSURANCE BILL [address] [place] [address] * (ABNORMAL) LIPID PROFILE (07/23/2023 2:19 PM ENFORCEMENT SAFETY OFFICER) Cholesterol 201(H) 100 - 199 mg/dL [facility] INSURANCE BILL Triglycerides 83 0 - 149 mg/dL [facility] INSURANCE BILL HDL Cholesterol 36(L) >39 mg/dL [facility] INSURANCE BILL VLDL Calculated 15 5 - 40 mg/dL [facility] INSURANCE BILL LDL Calculated 150(H) 0 - 99 mg/dL [facility] INSURANCE BILL Comment NOT AVAILABLE [facility] INSURANCE BILL Comment: FASTING Result cannot be obtained for this observation. Blood BLOOD SPECIMEN / Unknown 07/23/2023 2:19 PM ENFORCEMENT SAFETY OFFICER 07/23/2023 Narrative Resulting Agency Comment Lab Testing performed at: [facility] [address] [facility] ??[facility] [id number] Nevaeh Rain [employer] [facility] - CHEMISTR Y ORDERABLES [facility] INSURANCE BILL [address] [place] [address] * CARDIAC EKG ORDER (04/24/2023 11:38 AM ENFORCEMENT SAFETY OFFICER) Narrative 04/24/2023 11:38 AM ENFORCEMENT SAFETY OFFICER Ordered by an unspecified provider. Scanned Document CARDIAC SERVICES ORD ERABLES * EKG 12-LEAD (04/23/2023 9:20 AM ENFORCEMENT SAFETY OFFICER) Only the most recent of2 resultswithin the time period is included. Ventricular Rate 71 BPM [facility] Atrial Rate 71 BPM [facility] P-R Interval 146 ms [facility] QRS Duration ms 98 ms [facility] Q-T Interval ms 394 ms [facility] QTC Calculation (Bezet) 428 ms [facility] Calculated P [place] 40 degrees [facility] M[facility] Calculated R [place] 88 degrees [facility] Calculated T [place] -5 degrees [facility] Interpretation EKG NORMAL SINUS RHYTHM WITH SINUS ARRHYTHMIA T WAVE ABNORMALITY, CONSIDER INFERIOR ISCHEMIA ABNORMAL ECG WHEN COMPARED WITH ECG OF 22-APR-2023 21:47, HEART RATE DECREASED BY 49 BPM Confirmed by JEROD ??JORGE L DORANTES ([id number]) on 04/30/2023 7:04:39 PM [facility] 04/23/2023 9:20 AM ENFORCEMENT SAFETY OFFICER 04/30/2023 7:04 PM ENFORCEMENT SAFETY OFFICER John Villavicencio MD ECG ORDERABLES H MUSE * D-DIMER (04/23/2023 9:09 AM ENFORCEMENT SAFETY OFFICER) Pathologist [facility] D-Dimer Quantitative <0.27 <=0.50 mcg/mL FEU 04/23/2023 10:04 AM ENFORCEMENT SAFETY OFFICER [facility] Comment: In the absence of clinical symptoms, a value less than or equal to 0.5 mcg/mL FEU significantly decreases the probability of PE/DVT (negative predictive value >95%). 1 mcg/mL FEU = 1 Fibrinogen Equivalent Unit (approximates 0.5 mcg/ml of D- Dimer). ?ISTH DIAGNOSTIC SCORING SYSTEM FOR DIC ?Score ?0 ? 1 ? 2 ?3 ?? Platelet Count(x10^3/uL) ?> 100 ?? < 100 ?? < 50 ?N/A PT Prolongation above ? upper limit of normal ?0-3 ? 3-6 ? > 6 ?N/A range (seconds) ? Fibrinogen (mg/dL) ?> 100 ?? < 100 ?N/A ?N/A D-Dimer (mcg/mL FEU) ? < 0.50 ?N/A ? 0.50-5.0 ??> 5 Calculate Cumulative Score: > or = 5 :compatible with overt DIC ? < 5 :suggestive for non-overt DIC N/A = Non applicable Reference: Br. J. Haematol. 145:24-33,2009. Blood BLOOD SPECIMEN / Unknown Venipuncture / Unknown 04/23/2023 9:09 AM ENFORCEMENT SAFETY OFFICER 04/23/2023 9:34 AM ENFORCEMENT SAFETY OFFICER John Villavicencio MD LAB - COAGULATION OR DERABLES [facility] [address] [place] [address], [facility] [phone] * TSH REFLEX FREE T4 (04/23/2023 6:50 AM ENFORCEMENT SAFETY OFFICER) TSH 1.791 0.350 - 4.940 uIU/mL 04/23/2023 7:40 AM ENFORCEMENT SAFETY OFFICER [facility] Blood BLOOD SPECIMEN / Unknown Venipuncture / Unknown 04/23/2023 6:50 AM ENFORCEMENT SAFETY OFFICER 04/23/2023 6:55 AM ENFORCEMENT SAFETY OFFICER John Villavicencio MD LAB - CHEMISTRY ANTHONYE NATHALIE [facility] [address] [place] [address], [facility] [phone] * XR CHEST 1VW PORTABLE (04/22/2023 9:46 PM ENFORCEMENT SAFETY OFFICER) Anatomical Region Laterality Modality Chest Radiographic Griselda ging 04/22/2023 10:1 4 PM ENFORCEMENT SAFETY OFFICER Impressions 04/22/2023 10:36 PM ENFORCEMENT SAFETY OFFICER IMPRESSION: No acute pulmonary process. Report dictated by John Joseph DO (residential solar sales consultant). I, Simi Davis MD have personally reviewed and interpreted this examination/study. > Interpreting Provider: Simi Davis MD on 04/22/2023 10:36 PM Narrative 04/22/2023 10:36 PM ENFORCEMENT SAFETY OFFICER PROCEDURE: ??XR CHEST 1VW PORTABLE, DATE/TIME OF EXAM: ??04/22/2023 9:46 PM, LOCATION ??[facility] INDICATION: R06.02: SOB (shortness of breath) ADDITIONAL CLINICAL INFORMATION: Ordering Provider Reason For Exam: ??injury COMPARISON: None. FINDINGS: There is no focal consolidation, pleural effusion, or pneumothorax. The cardiomediastinal silhouette is normal. The visible bony thorax is intact. Procedure Note Simi Davis MD - 04/22/2023 PROCEDURE: XR CHEST 1VW PORTABLE, DATE/TIME OF EXAM: 04/22/2023 9:46PM, LOCATION [facility] INDICATION: R06.02: SOB (shortness of breath) ADDITIONAL CLINICAL INFORMATION: Ordering Provider Reason For Exam: injury COMPARISON: None. FINDINGS: There is no focal consolidation, pleural effusion, or pneumothorax. The cardiomediastinal silhouette is normal. The visible bony thorax isintact. IMPRESSION: No acute pulmonary process. Report dictated by John Joseph DO (residential solar sales consultant). I, Simi Davis MD have personally reviewed and interpreted this examination/study. > Interpreting Provider: Simi Davsi MD on 0:36 PM Roderick Enciso MD DIAGNOSTIC IMAGING O [facility] Care Teams [employer] Founder Relationship Specialty Start Date End Date Nevaeh Rain, [employer] [address] [facility] [address] [place] [address] PCP - General Nurse Practitioner 06/27/23
--- NOTE | 2024-07-15 19:04 | PC.NURSE ---
Patient did not answer page for triage at [phone]
--- OUTSIDE RECORDS SUMMARY | 2024-07-15 19:42 | XMS_ITS | Clinical Summary ---
Author Organization [facility] Address [address] [place] [address] Care Team Providers Care Vacuum Tank Tender Name Role Phone Cristine Gaona MD Primary [...] on file Legal Sex Male 9:30 PM MEDICAL TRANSCRIPTIONIST Gender Identity Not on file Sexual Orientation [...] patient's age to complete this topic Insurance [employer] * Guarantor: Baldomero Lacy Account Type Relation to Patient Date of Phone Billing Address Personal/Family Self 1990 [address] [place] [address] ANTHEM ACCESS CHOICE * Guarantor: Baldomero Lacy Account Type Relation to Patient Date of Phone Billing Address Personal/Family Self [address] [place] [address] Care Teams Vacuum Tank Tender Relationship Specialty Start Date End Date Cristine Gaona MD PCP - General Family Practice 06/29/22
--- OUTSIDE RECORDS SUMMARY | 2024-07-15 19:42 | XMS_ITS | Continuity of Care Document ---
Author Organization [facility] Address [address] [place] [address] Phone Care Team Providers Care Rn Hemodialysis Charge Name Role Phone Mannie Vasques MD Unavailable Unavailable Advance Directives Directive Yes / No Effective Date File Name No Information Encounters Encounter Description Practice Location Reason(s) For Visit Diagnoses Date Provider Providers Copied on Encounter [facility], [address] [place], [place], [id number], [place] tel:[phone] [facility] No Information Layo Chand. [address] [place], [id number], [place]. tel:[phone] Family History Family Member Type Diagnosis Age At Onset No Information Payers Payer name Insurance type Covered libertarian ID Authoriza tion(s) No Information Social History [...]
--- OUTSIDE RECORDS SUMMARY | 2024-07-15 19:42 | XMS_ITS | Clinical Summary ---
Author Organization [facility] Address [address] [facility] [place] [address] Care Team Providers Care Assistant Nurse Manager Name Role Phone Nevaeh Rain APRN-RETAIL WIRELESS SALES REPRESENTATIVE Primary Care Provider Source Comments [facility],non-owned Affiliates and Associated Physician Practices is amultiple site organization consisting of ambulatory clinics and hospital sitesin [place], [place], [place] and [place]. This disclosure is being madepursuant to the Care Everywhere program and may not contain all information available regarding this patient. Last updated 18.[facility] Allergies No known active allergies Medications * [...] 07/12/2023 Active Cholecalciferol (vitamin D3) 1.25 MG (75748 UT) capsuleIndication s:Low vitamin D level Take [...] Department Care Team Description 07/03/2024 Orders Only [facility] GI [address] [place] [address] Ras Trujillo MD 05/29/2024 10:40 AM PRESS MANAGER Anesthesia Event [facility] ENDOSCOPY [address] [place] [phone] Corinne Rollins MD Shaffer, Hannah, Anes Asst 05/29/2024 9:55 AM PRESS MANAGER - 05/29/2024 10:40 AM PRESS MANAGER Surgery [facility] ENDOSCOPY [address] [place] [phone] Ras Trujillo MD EGD 05/29/2024 8:59 AM PRESS MANAGER - 05/29/2024 12:22 PM PRESS MANAGER Hospital Encounter [facility] OP [address] [place] [phone] Ras Trujillo MD Surgery General Discharge Disposition: Home or Self Care 05/29/2024 Travel 05/23/2024 Patient Outreach [facility] [address] [place] [phone] Liliana Singletary RN 05/21/2024 Orders Only [facility] [address] [place] [phone] Liliana Singletary RN 04/24/2024 9:20 AM PRESS MANAGER Office Visit [facility] [address] [place] [phone] Tyrell Roche MD Iron deficiency (Primary Dx); Hypoxemia; Chronic insomnia 04/24/2024 Travel 04/23/2024 8:30 PM PRESS MANAGER Procedure visit [facility] [address] [place] [address] Sleep related hypoxia from Last [...] file Gender Identity Male 07/12/2023 2:33 PM PRESS MANAGER Sexual Orientation Not on file Last Filed Vital Signs Vital Sign Reading Time Taken Comments Blood Pressure 150/87 05/29/2024 12:14 PM PRESS MANAGER Pulse 89 05/29/2024 12:14 PM PRESS MANAGER Temperature 36.9 ??C (98.4 ??F) 05/29/2024 1 1:38 AM PRESS MANAGER Respiratory Rate 18 05/29/2024 12:1 4 PM PRESS MANAGER Oxygen Saturation 98% 05/29/2024 12: 14 PM PRESS MANAGER Inhaled Oxygen Concentration - - Weight 117.8 kg (259 lb 12.8 oz) 05/29/2024 9:11 AM PRESS MANAGER Height 177.8 cm (5' 10 ) 05/29/2024 9:11 AM PRESS MANAGER Body Mass Index 37.28 05/29/2024 9:11 AM PRESS MANAGER Plan of Treatment Upcoming Encounters Date Type Department Care Team (Late st Contact Info) Description 07/29/2024 9:00 AM PRESS MANAGER Appointment [facility] PFT [address] [place] [phone] 08/24/2024 1:[address] [facility] [address] [place] [phone] [place] [address] [place] [address] [address] [place] [phone] 08/27/2024 4:20 PM CDT Office Visit [facility] [address] [place] [phone] Flakita Raza APNP-RETAIL WIRELESS SALES REPRESENTATIVE [address] [facility] [address] DIV OF PULMONARY/[place] [address] Health Maintenance Due Date Last Done Comments [...] PATHOLOGY TISSUE Routine 05/29/2024 11:0 2 AM PRESS MANAGER Iron deficiency anemia, unspecified iron deficiency anemia type EGD Routine 05/29/2024 10:37 AM PRESS MANAGER ENDOSCOPY, COLON, SCREENING Routine 05/29/2024 10:37 AM PRESS MANAGER RI COLONOSCOPY, DIAGNOSTIC 05/29/2024 10:35 AM PRESS MANAGER Iron deficiency anemia, unspecified iron deficiency anemia type RI ED EGD FLEX TRANSORAL DX 05/29/2024 10:35 AM PRESS MANAGER Iron deficiency anemia, unspecified iron deficiency anemia type RI POLYSOM 6/> YRS 4/> AIDA Routine 04/24/2024 10:49 AM PRESS MANAGER Insomnia, unspecified type Prolonged grief reaction Shift [...] Results * PATHOLOGY TISSUE (05/29/2024 11:02 AM PRESS MANAGER) Case Report Surgical Pathology Report ? Case: [id number] ? Authorizing Provider: ??Ras Trujillo MD ? Collected: ? 05/29/2024 11:02 AM ? Ordering Location: ? [facility] ?Received: ?05/29/2024 12:49 PM ? Pathologist: ? Zulay Anderson MD ? Specimens: ?? A) - Duodenum, Duodenal bx to r/o celiac ? B) - Gastric, Gastric bx to r/o H.pylori and gastritis ? C) - Polyp Descending, Descending polyp ? 05/30/2024 9:55 AM [facility] Final Diagnosis Small intestine, duodenum, biopsy (A): - No histopathologic abnormality - Intact villous and crypt architecture without increased intraepithelial lymphocytes Stomach, biopsy (B): - Chronic active gastritis with H. pylori organisms Large intestine, ascending polyp, biopsy (C): - Tubular adenoma, not present at stalk margin 05/30/2024 9:55 AM [facility] Microscopic Description and Comment Microscopic examination substantiates the final diagnosis. 05/30/2024 9:55 AM [facility] Clinical History The patient is a 34-year-old man with iron deficiency anemia. Operative procedure/findings: EGD - mild gastritis, biopsied to rule out H. 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 Colonoscopy - 12 mm descending colon polyp resected and retrieved 05/30/2024 9:55 AM [facility] Gross Description The requisition and [...] in cassette C1. DF 05/30/2024 9:55 AM [facility] Pathologist Location at [facility] 05/30/2024 9:55 AM [facility] Disclaimer The performance characteristics of all immunohistochemical and indirect immunofluorescence stains (if any) cited in this report were determined by the Histopathology Laboratory of [facility]. Some of these tests were developed by [...] the attending (teaching) pathologist. 05/30/2024 9:55 AM PRESS MANAGER [facility] Embedded Images 05/30/2024 9:55 AM PRESS MANAGER [facility] Biopsy, NOS PART OF DUODENUM / Unknown 05/29/2024 11:02 AM PRESS MANAGER 05/29/2024 12:49 PM PRESS MANAGER Biopsy, NOS GASTRIC CONTENTS SPECIMEN / Unknown 05/29/2024 11:02 AM PRESS MANAGER 05/29/2024 12:49 PM PRESS MANAGER Biopsy, NOS POLYP / Unknown 05/29/2024 1 1:19 AM PRESS MANAGER 05/29/2024 12:49 PM PRESS MANAGER Ras Trujillo MD LAB - PATHOLOGY/CYTO LOGY ORDERABLES [facility] [address] [place] [address], [facility] [phone] * EGD (05/29/2024 10:37 AM PRESS MANAGER) Report Endoscopy POC Endoscopy Department Report __ _ Patient Name: Baldomero Lacy ?Procedure Date: 05/29/2024 10:37 AM ?Date of : 1990 Classification: Outpatient ?Gender: Male Ethnicity: Not or ? Race: Black or __ _ Providers: ?Ras Trujillo MD Referring MD: ? Nevaeh Rain [employer] CONSULTANT-RETAIL WIRELESS SALES REPRESENTATIVE (PCP), Tyrell Roche, ? (Referring MD) Procedure: [...] Procedure Code(s): ? --- Professional --- ? 95687, Esophagogastroduode noscopy, flexible, transoral; with biopsy, ? single or multiple Diagnosis Code(s): ?--- Professional --- ?K29.70, Gastritis, unspecified, without bleeding ?K31.819, Angiodysplasia of stomach and duodenum ?without bleeding ?D50.9, Iron deficiency anemia, unspecified CPT copyright 2021 [employer]. All rights reserved. The codes documented in this report are preliminary and upon geomatics professor review may be revised to meet current compliance requirements. Ras Trujillo MD 05/29/2024 12:02:50 PM Note Initiated On: 05/29/2024 10:37 AM Number of Addenda: 0 ? [facility] ? [address] PROVATION 05/29/2024 10:3 7 AM PRESS MANAGER Ras Trujillo MD GI PROCEDURE ORDERAB LES [facility] * Endoscopy, Colon, Screening (05/29/2024 10:37 AM PRESS MANAGER) Report Endoscopy POC Endoscopy Department Report _ Patient Name: Baldomero Lacy ?Procedure Date: 05/29/2024 10:37 AM ?Date of : 1990 Classification: Outpatient ?Gender: Male Ethnicity: Not or ? Race: Black or _ Providers: ?Ras Trujlilo MD Referring MD: ? Nevaeh Rain [employer] CONSULTANT-RETAIL WIRELESS SALES REPRESENTATIVE (PCP), Tyrell Roche, ? (Referring MD) Procedure: [...] Procedure Code(s): ? --- Professional --- ? 25654, Colonoscopy, flexible; with removal of tumor(s), polyp(s), or ? other lesion(s) by snare technique Diagnosis Code(s): ?--- Professional --- ?D12.4, Benign neoplasm of descending colon ?K64.8, Other hemorrhoids ?D50.9, Iron deficiency anemia, unspecified ?K57.30, Diverticulosis of large intestine without ?perforation or abscess without bleeding CPT copyright 2021 [employer]. All rights reserved. The codes documented in this report are preliminary and upon geomatics professor review may be revised to meet current compliance requirements. _ Ras Trujillo MD 05/29/2024 11:54:42 AM Note Initiated On: 05/29/2024 10:37 AM Number of Addenda: 0 ? [facility] ? [address] [place], [place] [id number] [place] [address] PROVATION 05/29/2024 10:3 7 AM PRESS MANAGER Ras Trujillo MD GI PROCEDURE ORDERAB LES Performing Organization Address City/State/[facility] Co de Phone Number [facility] [employer] * RI POLYSOM 6/> YRS 4/> AIDA (04/24/2024 10:49 AM PRESS MANAGER) Narrative Tyrell Roche MD - 04/24/2024 10:49 AM PRESS MANAGER Tyrell Roche MD ? 04/24/2024 10:50 AM [facility] Accredited by the [employer] [facility], First Floor [address] [place] [address] Telephone : [phone] ? Medical Records Patient Name: ??Baldomero Lacy : ??1990 Date of Study: ??04/23/2024 Referring Physician: ??LANNY Diaz Type of Montage: ??Respiratory Scoring System: ??[facility] FULL NIGHT DIAGNOSTIC POLYSOMNOGRAM INTERPRETATION (04/23/2024) Procedure: The polysomnogram was performed with a system technologist in attendance. ??Frontal, central, and temporal [...] Rfl: 0 ??Cholecalciferol (vitamin D3) 1.25 MG (05487 UT) capsule, Take 1 (one) capsule by [...] diffusion abnormality, etc.). Tyrell Khan. ??MD Melchor, [facility], [facility], [facility] Cadd Technician, [facility] Professor of Internal Medicine Adjunct [employer] [facility] Neurology Division of Pulmonary, Critical Care, and Sleep Medicine [facility] This note was electronically signed on 04/24/2024. CC: ??NO Manzanares [address] [facility], ??[place] [address] LANNY Diaz Flakita SARABIA PROCEDUR E/MINOR SURGICAL [...] 8:35 PM CDT Performed at: ??02 - [address] ??[id number] Ingredient Handler: Isaac Galindo PhD, Phone: ??[phone] Resulting Agency Comment Lab Testing performed at: [facility] ??[facility] [id number] Nevaeh CA LAB - CHEMISTR Y ORDERABLES [facility] INSURANCE BILL [address] [place] [address] from Last 3 Months or Most Recently Relevant to Health Maintenance Care Teams Assistant Nurse Manager Relationship Specialty Start Date End Date Nevaeh Rain, [employer] CONSULTANT-RETAIL WIRELESS SALES REPRESENTATIVE [address] [facility] [address] [place] [address] PCP - General Nurse Practitioner 06/27/23
--- OUTSIDE RECORDS SUMMARY | 2024-07-15 19:42 | XMS_ITS | Clinical Summary ---
Author Organization [facility] Address [facility] [facility]. [place], [place] [address] [place] [address] Care Team Providers Care Ice Plant Operator Name Role Phone Cristine Gaona MD [...] to complete this topic Insurance , [address] [place] [address] AMBETTER Care Teams Ice Plant Operator Relationship Specialty Start Date End Date Cristine Gaona MD [address] [place] [address] [address] [place] [address] PCP - General FAMILY PRACTICE 08/28/22
--- OUTSIDE RECORDS SUMMARY | 2024-07-15 19:42 | XMS_ITS | Referral Summary ---
Author Organization [facility] Address [address] [place] [address] Care Team Providers Care Log Handler Name Role Phone Nevaeh Rain APRN-MANAGER OUTPATIENT Primary Care Provider Source Comments [facility],non-owned Affiliates and Associated Physician Practices is amultiple site organization consisting of ambulatory clinics and hospital sitesin [place], [place], [place] and [place]. This disclosure is being madepursuant to the Care Everywhere program and may not contain all information available regarding this patient. Last updated 18.[facility] Encounters Date Type Department Care Team Description 07/03/2024 Orders Only [facility] GI [address] [place] [address] Ras Trujillo MD 05/29/2024 10:40 AM TRANSVERSE ABDOMINAL MUSCLE NURSE Anesthesia Event [facility] ENDOSCOPY [address] [place] [address] Corinne Rollins MD Shaffer, Hannah, Anes Asst 05/29/2024 Travel 05/29/2024 9:55 AM TRANSVERSE ABDOMINAL MUSCLE NURSE - 05/29/2024 10:40 AM TRANSVERSE ABDOMINAL MUSCLE NURSE Surgery [facility] ENDOSCOPY [address] [place] [address] Ras Trujillo MD EGD 05/29/2024 8:59 AM TRANSVERSE ABDOMINAL MUSCLE NURSE - 05/29/2024 12:22 PM TRANSVERSE ABDOMINAL MUSCLE NURSE Hospital Encounter [facility] SITA OP [address] [place] [address] Ras Trujillo MD Surgery General Discharge Disposition: Home or Self Care 05/23/2024 Patient Outreach [facility] ENDOSCOPY [address] [place] [address] Liliana Singletary RN 05/21/2024 Orders Only [facility] ENDOSCOPY [address] [place] [address] Liliana Singletary RN 04/24/2024 Travel 04/24/2024 9:20 AM TRANSVERSE ABDOMINAL MUSCLE NURSE Office Visit [facility] [address] [place] [address] Tyrell Roche MD Iron deficiency (Primary Dx); Hypoxemia; Chronic insomnia 04/23/2024 8:30 PM TRANSVERSE ABDOMINAL MUSCLE NURSE Procedure visit [facility] [address] [place] [phone] Sleep related hypoxia from Last 3 Months [...] 07/12/2023 Active Cholecalciferol (vitamin D3) 1.25 MG (35751 UT) capsuleIndication s:Low vitamin D level Take [...] file Gender Identity Male 07/12/2023 2:33 PM TRANSVERSE ABDOMINAL MUSCLE NURSE Sexual Orientation Not on file Last Filed Vital Signs Vital Sign Reading Time Taken Comments Blood Pressure 150/87 05/29/2024 12:14 PM TRANSVERSE ABDOMINAL MUSCLE NURSE Pulse 89 05/29/2024 12:14 PM TRANSVERSE ABDOMINAL MUSCLE NURSE Temperature 36.9 ??C (98.4 ??F) 05/29/2024 1 1:38 AM TRANSVERSE ABDOMINAL MUSCLE NURSE Respiratory Rate 18 05/29/2024 12:1 4 PM TRANSVERSE ABDOMINAL MUSCLE NURSE Oxygen Saturation 98% 05/29/2024 12: 14 PM TRANSVERSE ABDOMINAL MUSCLE NURSE Inhaled Oxygen Concentration - - Weight 117.8 kg (259 lb 12.8 oz) 05/29/2024 9:11 AM TRANSVERSE ABDOMINAL MUSCLE NURSE Height 177.8 cm (5' 10 ) 05/29/2024 9:11 AM TRANSVERSE ABDOMINAL MUSCLE NURSE Body Mass Index 37.28 05/29/2024 9:11 AM TRANSVERSE ABDOMINAL MUSCLE NURSE Functional Status Functional Status Response Date of [...] st Contact Info) Description 07/29/2024 9:00 AM TRANSVERSE ABDOMINAL MUSCLE NURSE Appointment [facility] [address] [place] [address] 08/24/2024 1:00 PM CDT Appointment [facility] [address] [place] [phone] Lindsay León MD [address] [facility] [address]L [place] [address] 08/27/2024 4:20 PM CDT Office Visit [facility] [address] [place] [address] Flakita Raza APNP-MANAGER OUTPATIENT [address] [facility] 2L DIV OF PULMONARY/[place] [address] Procedures Procedure Name Priority Date/Time Associated Diagnosis Comments PATHOLOGY TISSUE Routine 05/29/2024 11:0 2 AM TRANSVERSE ABDOMINAL MUSCLE NURSE Iron deficiency anemia, unspecified iron deficiency anemia type EGD Routine 05/29/2024 10:37 AM TRANSVERSE ABDOMINAL MUSCLE NURSE ENDOSCOPY, COLON, SCREENING Routine 05/29/2024 10:37 AM TRANSVERSE ABDOMINAL MUSCLE NURSE [place] COLONOSCOPY, DIAGNOSTIC 05/29/2024 10:35 AM TRANSVERSE ABDOMINAL MUSCLE NURSE Iron deficiency anemia, unspecified iron deficiency anemia type [place] ED EGD FLEX TRANSORAL DX 05/29/2024 10:35 AM TRANSVERSE ABDOMINAL MUSCLE NURSE Iron deficiency anemia, unspecified iron deficiency anemia type [place] POLYSOM 6/> YRS 4/> AIDA Routine 04/24/2024 10:49 AM TRANSVERSE ABDOMINAL MUSCLE NURSE Insomnia, unspecified type Prolonged grief reaction Shift [...] Results * PATHOLOGY TISSUE (05/29/2024 11:02 AM TRANSVERSE ABDOMINAL MUSCLE NURSE) Case Report Surgical Pathology Report ? Case: [id number] ? Authorizing Provider: ??Ras Trujillo MD ? Collected: ? 05/29/2024 11:02 AM ? Ordering Location: ? [facility] ENDOSCOPY ?Received: ?05/29/2024 12:49 PM ? Pathologist: ? Zulay Anderson MD ? Specimens: ?? A) - Duodenum, Duodenal bx to r/o celiac ? B) - Gastric, Gastric bx to r/o H.pylori and gastritis ? C) - Polyp Descending, Descending polyp ? 05/30/2024 9:55 AM [facility] Final Diagnosis Small intestine, duodenum, biopsy (A): - No histopathologic abnormality - Intact villous and crypt architecture without increased intraepithelial lymphocytes Stomach, biopsy (B): - Chronic active gastritis with H. pylori organisms Large intestine, ascending polyp, biopsy (C): - Tubular adenoma, not present at stalk margin 05/30/2024 9:55 AM [facility] Microscopic Description and Comment Microscopic examination substantiates the final diagnosis. 05/30/2024 9:55 AM [facility] Clinical History The patient is a 34-year-old man with iron deficiency anemia. Operative procedure/findings: EGD - mild gastritis, biopsied to rule out H. 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 Colonoscopy - 12 mm descending colon polyp resected and retrieved 05/30/2024 9:55 AM [facility] Gross Description The requisition and [...] in cassette C1. DF 05/30/2024 9:55 AM [facility] Pathologist Location at [facility] 05/30/2024 9:55 AM [facility] Disclaimer The performance characteristics of all immunohistochemical and indirect immunofluorescence stains (if any) cited in this report were determined by the Histopathology Laboratory of [facility]. Some of these tests were developed by [...] the attending (teaching) pathologist. 05/30/2024 9:55 AM [facility] Embedded Images 05/30/2024 9:55 AM [facility] Biopsy, NOS PART OF DUODENUM / Unknown 05/29/2024 11:02 AM TRANSVERSE ABDOMINAL MUSCLE NURSE 05/29/2024 12:49 PM TRANSVERSE ABDOMINAL MUSCLE NURSE Biopsy, NOS GASTRIC CONTENTS SPECIMEN / Unknown 05/29/2024 11:02 AM TRANSVERSE ABDOMINAL MUSCLE NURSE 05/29/2024 12:49 PM TRANSVERSE ABDOMINAL MUSCLE NURSE Biopsy, NOS POLYP / Unknown 05/29/2024 1 1:19 AM TRANSVERSE ABDOMINAL MUSCLE NURSE 05/29/2024 12:49 PM TRANSVERSE ABDOMINAL MUSCLE NURSE Ras Trujillo MD LAB - PATHOLOGY/[facility]TO [facility] ORDER[facility] [address] [place] [address], [facility] [phone] * EGD (05/29/2024 10:37 AM TRANSVERSE ABDOMINAL MUSCLE NURSE) Report Endoscopy POC Endoscopy Department Report __ [...] Procedure Code(s): ? --- Professional --- ? 54972, Esophagogastroduode noscopy, flexible, transoral; with biopsy, ? single or multiple Diagnosis Code(s): ?--- Professional --- ?K29.70, Gastritis, unspecified, without bleeding ?K31.819, Angiodysplasia of stomach and duodenum ?without bleeding ?D50.9, Iron deficiency anemia, unspecified CPT copyright 2021 [employer]. All rights reserved. The codes documented in this report are preliminary and upon pasteurizer review may be revised to meet current compliance requirements. Ras Trujillo MD 05/29/2024 12:02:50 PM Note Initiated On: 05/29/2024 10:37 AM Number of Addenda: 0 ? [facility] ? [address] [place] [address] [facility] 05/29/2024 10:3 7 AM TRANSVERSE ABDOMINAL MUSCLE NURSE Ras Trujillo MD GI PROCEDURE ORDERAB LES [facility] [place] * Endoscopy, Colon, Screening (05/29/2024 10:37 AM TRANSVERSE ABDOMINAL MUSCLE NURSE) Report Endoscopy POC Endoscopy Department Report _ [...] Procedure Code(s): ? --- Professional --- ? 83925, Colonoscopy, flexible; with removal of tumor(s), polyp(s), or ? other lesion(s) by snare technique Diagnosis Code(s): ?--- Professional --- ?D12.4, Benign neoplasm of descending colon ?K64.8, Other hemorrhoids ?D50.9, Iron deficiency anemia, unspecified ?K57.30, Diverticulosis of large intestine without ?perforation or abscess without bleeding CPT copyright 2021 [employer]. All rights reserved. The codes documented in this report are preliminary and upon pasteurizer review may be revised to meet current compliance requirements. _ Ras Trujillo MD 05/29/2024 11:54:42 AM Note Initiated On: 05/29/2024 10:37 AM Number of Addenda: 0 ? [facility] ? [address] [place] [address] [facility] 05/29/2024 10:3 7 AM TRANSVERSE ABDOMINAL MUSCLE NURSE Ras Trujillo MD GI PROCEDURE ORDERAB LES [facility] * [place] POLYSOM 6/> YRS 4/> AIDA (04/24/2024 10:49 AM TRANSVERSE ABDOMINAL MUSCLE NURSE) Narrative Tyrell Roche MD - 04/24/2024 10:49 AM TRANSVERSE ABDOMINAL MUSCLE NURSE Tyrell Roche MD ? 04/24/2024 10:50 AM [facility] Accredited by the [employer] [facility], First Floor [address] [facility] [place] [address] Telephone : [phone] ? Medical Records Patient Name: ??Baldomero Lacy : ??1990 Date of Study: ??04/23/2024 Referring Physician: ??LANNY Diaz Type of Montage: ??Respiratory Scoring System: ??[facility] FULL NIGHT DIAGNOSTIC POLYSOMNOGRAM INTERPRETATION (04/23/2024) Procedure: The polysomnogram was performed with a clinical lab technologist in attendance. ??Frontal, central, and temporal [...] Rfl: 0 ??Cholecalciferol (vitamin D3) 1.25 MG (50160 UT) capsule, Take 1 (one) capsule by [...] etc.). Tyrell Khan. ??MD Melchor, MSP, FCCP, [facility] Chief Operating Engineer, [facility] Professor of Internal Medicine Adjunct Middleware Systems Architect of Neurology Division of Pulmonary, Critical Care, and Sleep Medicine [facility] This note was electronically signed on 04/24/2024. CC: ??JAQUELIN Manzanares-JUAN JOSE [address] [facility], ??[place] [address] LANNY Diaz Flakita SARABIA PROCEDUR E/MINOR SURGICAL [...] PM CDT Performed at: ??02 - [facility] [address], [place], [place] ??[id number] Package Designer: Isaac Galindo PhD, Phone: ??[phone] Resulting Agency Comment Lab Testing performed at: [facility] ??[facility]ly [facility] [id number] Nevaeh Rain APRN-MANAGER OUTPATIENT LAB - CHEMISTR Y ORDERABLES [facility] INSURANCE BILL [address] [place] [address] from Last 3 Months or Most Recently Relevant to Health Maintenance Care Teams Log Handler Relationship Specialty Start Date End Date Nevaeh Rain, ARMOR SENIOR SERGEANT-MANAGER OUTPATIENT [address] [place] [address] PCP - General Nurse Practitioner 06/27/23
--- OUTSIDE RECORDS SUMMARY | 2024-07-15 19:42 | XMS_ITS | Referral Summary ---
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
--- OUTSIDE RECORDS SUMMARY | 2024-07-15 19:42 | XMS_ITS | Encounter Summary ---
Author Organization [facility] Address [address] [facility] [place] [address] Care Team Providers Care Warper Fixer Name Role Phone Nevaeh Rain APRN-TANK TRUCK MECHANIC Primary Care Provider Reason for Visit * Reason Onset Date Comments MEDICATION REFILL 10/01/2023 Encounter Details Date Type Department Care Team (Late Contact Info) Description 10/01/2023 Refill [facility] [address], [address] [address] Nevaeh Rain, DIRECTOR DECISION SUPPORT-TANK TRUCK MECHANIC [address] [address] MEDICATION REFILL Social History Tobacco [...] file Gender Identity Male 07/12/2023 2:33 PM WELL DRILL OPERATOR CABLE TOOL Sexual Orientation Not on file documented as of this encounter Plan of Treatment Upcoming Encounters Date Type Department Care Team (Late Contact Info) Description 07/29/2024 9:00 AM WELL DRILL OPERATOR CABLE TOOL [facility] [address] [place] [phone] 08/24/2024 1:00 PM CDT Appointment [facility] [address] [place] [phone] Lindsay León MD [address] [facility] 3L [place] [address] 08/27/2024 4:20 PM CDT Office Visit [facility] [address] [place] [phone] Flakita Raza APNP-TANK TRUCK MECHANIC [address] [facility] 2L DIV OF PULMONARY/[place] [address] documented as of this encounter Visit Diagnoses Not on filedocumented in this encounter Care Teams Warper Fixer Relationship Specialty Start Date End Date Nevaeh Rain APRN-TANK TRUCK MECHANIC [address] [place] [address] PCP - General Nurse Practitioner 06/27/23 documented as of this encounter
--- OUTSIDE RECORDS SUMMARY | 2024-07-15 19:42 | XMS_ITS | Patient Health Summary ---
Author Organization [facility] Address [address] [place] [address] Care Team Providers Care Constitutional Law Professor Name Role Phone Nevaeh Rain APRN-CLOTH BEAMER Primary Care Provider Note from [facility],non-owned Affiliates and Associated Physician Practices is amultiple site organization consisting of ambulatory clinics and hospital sitesin [place], [place], [place] and [place]. This disclosure is being madepursuant to the Care Everywhere program and may not contain all information available regarding this patient. Last updated 18.[facility] Allergies No known active allergies Medications * [...] 07/11/2024 * Cholecalciferol (vitamin D3) 1.25 MG (56665 UT) capsule(Started 11/16/2023) Take 1 (one) capsule [...] file Gender Identity Male 07/12/2023 2:33 PM MRI TECHNICIAN Sexual Orientation Not on file Last Filed Vital Signs Vital Sign Reading Time Taken Comments Blood Pressure 150/87 05/29/2024 12:14 PM MRI TECHNICIAN Pulse 89 05/29/2024 12:14 PM MRI TECHNICIAN Temperature 36.9 ??C (98.4 ??F) 05/29/2024 1 1:38 AM MRI TECHNICIAN Respiratory Rate 18 05/29/2024 12:1 4 PM MRI TECHNICIAN Oxygen Saturation 98% 05/29/2024 12: 14 PM MRI TECHNICIAN Inhaled Oxygen Concentration - - Weight 117.8 kg (259 lb 12.8 oz) 05/29/2024 9:11 AM MRI TECHNICIAN Height 177.8 cm (5' 10 ) 05/29/2024 9:11 AM MRI TECHNICIAN Body Mass Index 37.28 05/29/2024 9:11 AM MRI TECHNICIAN Procedures * PATHOLOGY TISSUE(Performed 05/29/2024) Performed for Iron deficiency anemia, unspecified iron deficiency anemia type * EGD(Performed 05/29/2024) * ENDOSCOPY, COLON, SCREENING(Performed 05/29/2024) * MI COLONOSCOPY, DIAGNOSTIC(Performed 05/29/2024) Performed for Iron deficiency anemia, unspecified iron deficiency anemia type * MI ED EGD FLEX TRANSORAL DX(Performed 05/29/2024) Performed for Iron deficiency anemia, unspecified iron deficiency anemia type * MI POLYSOM 6/> YRS 4/> AIDA(Performed 04/24/2024) Performed [...] Results * PATHOLOGY TISSUE (05/29/2024 11:02 AM MRI TECHNICIAN) Case Report Surgical Pathology Report ? Case: [id number] ? Authorizing Provider: ??Rsa Trujillo MD ? Collected: ? 05/29/2024 11:02 AM ? Ordering Location: ? [facility] ?Received: ?05/29/2024 12:49 PM ? Pathologist: ? Zulay Anderson MD ? Specimens: ?? A) - Duodenum, Duodenal bx to r/o celiac ? B) - Gastric, Gastric bx to r/o H.pylori and gastritis ? C) - Polyp Descending, Descending polyp ? 05/30/2024 9:55 AM [facility] Final Diagnosis Small intestine, duodenum, biopsy (A): - No histopathologic abnormality - Intact villous and crypt architecture without increased intraepithelial lymphocytes Stomach, biopsy (B): - Chronic active gastritis with H. pylori organisms Large intestine, ascending polyp, biopsy (C): - Tubular adenoma, not present at stalk margin 05/30/2024 9:55 AM [facility] Microscopic Description and Comment Microscopic examination substantiates the final diagnosis. 05/30/2024 9:55 AM [facility] Clinical History The patient is a 34-year-old man with iron deficiency anemia. Operative procedure/findings: EGD - mild gastritis, biopsied to rule out H. 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 Colonoscopy - 12 mm descending colon polyp resected and retrieved 05/30/2024 9:55 AM [facility] Gross Description The requisition and [...] in cassette C1. DF 05/30/2024 9:55 AM [facility] Pathologist Location at [facility] 05/30/2024 9:55 AM [facility] Disclaimer The performance characteristics of all immunohistochemical and indirect immunofluorescence stains (if any) cited in this report were determined by the Histopathology Laboratory of [facility]. Some of these tests were [...] the attending (teaching) pathologist. 05/30/2024 9:55 AM MRI TECHNICIAN [facility] Embedded Images 05/30/2024 9:55 AM MRI TECHNICIAN [facility] Biopsy, NOS PART OF DUODENUM / Unknown 05/29/2024 11:02 AM MRI TECHNICIAN 05/29/2024 12:49 PM MRI TECHNICIAN Biopsy, NOS GASTRIC CONTENTS SPECIMEN / Unknown 05/29/2024 11:02 AM MRI TECHNICIAN 05/29/2024 12:49 PM MRI TECHNICIAN Biopsy, NOS POLYP / Unknown 05/29/2024 1 1:19 AM MRI TECHNICIAN 05/29/2024 12:49 PM MRI TECHNICIAN Ras Trujillo MD LAB - PATHOLOGY/CYTO LOGY ORDERABLES Performing Organization Address City/State/[facility] Co de Phone Number [facility] [address] [place] [address], [facility] [phone] * EGD (05/29/2024 10:37 AM MRI TECHNICIAN) Report Endoscopy POC Endoscopy Department Report __ _ Patient Name: Baldomero Lacy ?Procedure Date: 05/29/2024 10:37 AM ?Date of : 1990 Classification: Outpatient ?Gender: Male Ethnicity: Not or ? Race: Black or __ _ Providers: ?Ras Trujillo MD Referring MD: ? Nevaeh Rain APRN-CLOTH BEAMER (PCP), Tyrell Roche, ? (Referring MD) Procedure: [...] Procedure Code(s): ? --- Professional --- ? 99150, Esophagogastroduode noscopy, flexible, transoral; with biopsy, ? single or multiple Diagnosis Code(s): ?--- Professional --- ?K29.70, Gastritis, unspecified, without bleeding ?K31.819, Angiodysplasia of stomach and duodenum ?without bleeding ?D50.9, Iron deficiency anemia, unspecified CPT copyright 2021 [employer]. All rights reserved. The codes documented in this report are preliminary and upon air and missile defense crewmember review may be revised to meet current compliance requirements. Ras Trujillo MD 05/29/2024 12:02:50 PM Note Initiated On: 05/29/2024 10:37 AM Number of Addenda: 0 ? [facility] ? [address] [employer]OVATION 05/29/2024 10:3 7 AM MRI TECHNICIAN Ras Trujillo MD GI PROCEDURE ORDERAB LES [facility] [employer] * Endoscopy, Colon, Screening (05/29/2024 10:37 AM MRI TECHNICIAN) Report Endoscopy POC Endoscopy Department Report _ [...] Procedure Code(s): ? --- Professional --- ? 39554, Colonoscopy, flexible; with removal of tumor(s), polyp(s), or ? other lesion(s) by snare technique Diagnosis Code(s): ?--- Professional --- ?D12.4, Benign neoplasm of descending colon ?K64.8, Other hemorrhoids ?D50.9, Iron deficiency anemia, unspecified ?K57.30, Diverticulosis of large intestine without ?perforation or abscess without bleeding CPT copyright 2021 [employer]. All rights reserved. The codes documented in this report are preliminary and upon air and missile defense crewmember review may be revised to meet current compliance requirements. _ Ras Trujillo MD 05/29/2024 11:54:42 AM Note Initiated On: 05/29/2024 10:37 AM Number of Addenda: 0 ? [facility] ? [address] [place], [place] [address] [place] [address] [employer]ATION 05/29/2024 10:3 7 AM MRI TECHNICIAN Ras Trujillo MD GI PROCEDURE ORDERAB LES Performing Organization Address City/State/[facility] Co de Phone Number [facility] [employer] * MI POLYSOM 6/> YRS 4/> AIDA (04/24/2024 10:49 AM MRI TECHNICIAN) Narrative Tyrell Roche MD - 04/24/2024 10:49 AM MRI TECHNICIAN Tyrell Roche MD ? 04/24/2024 10:50 AM [facility] Accredited by the [place] [employer] [facility], First Floor [address] [place] [address] Telephone : [phone] ? Medical Records Patient Name: ?Jeison Lacy : ??1990 Date of Study: ??04/23/2024 Referring Physician: ??LANNY Diaz Type of Montage: ??Respiratory Scoring System: ??[facility] FULL NIGHT DIAGNOSTIC POLYSOMNOGRAM INTERPRETATION (04/23/2024) Procedure: The polysomnogram was performed with a interventional technologist in attendance. ??Frontal, central, and temporal [...] Rfl: 0 ??Cholecalciferol (vitamin D3) 1.25 MG (39450 UT) capsule, Take 1 (one) capsule by [...] diffusion abnormality, etc.). Tyrell Khan. ??MD Melchor, [facility], [facility], [facility] Distributed Generation Project Manager, [facility] Professor of Internal Medicine Adjunct Train Operator of Neurology Division of Pulmonary, Critical Care, and Sleep Medicine [facility] This note was electronically signed on 04/24/2024. CC: ??JAQUELIN Manzanares-JUAN JOSE [address] [facility] [place], ??[place] [address] Nevaeh Rain APRN-JUAN JOSE Flakita SARABIA PROCEDUR E/MINOR SURGICAL ORDERABLES * MICROALB/CREAT RATIO URINE RANDOM PANEL (04/09/2024 4:02 PM CDT) Albumin Random Urine 24.2 Not Established ug/mL 04/09/2024 5:14 PM CDT [facility] Creatinine Urine 339.10 Not Established mg/dL 04/09/2024 5:14 PM CDT [facility] Urine Albumin/Creati nine Ratio 7 <30 mg/g 04/09/2024 5:14 PM CDT [facility] Urine URINE SPECIMEN OBTAINED BY CLEAN CATCH PROCEDURE / Unknown Collection / Unknown 04/09/2024 4:02 PM CDT 04/09/2024 4:33 PM CDT Lindsay León MD LAB - URINE CHEMISTR Y ORDERABLES [facility] [address] [place] [address], [place] [phone] * (ABNORMAL) URINALYSIS REFLEX TO MICROSCOPIC NO CULTURE (04/09/2024 4:02 PM CDT) Only the most recent of2 resultswithin the time period is included. Color UA Yellow Straw, Yellow 04/09/2024 5:13 PM [facility] Clarity UA t Cloudy(A) Clear 04/09/2024 5:13 PM [facility] Specific [place] UA 1.021 1.005 - 1.030 04/09/2024 5:13 PM [facility] pH UA 5.0 5.0 - 8.0 pH 04/09/2024 5:13 PM [facility] Protein UA Negative Negative 04/09/2024 5:13 PM [facility] Glucose UA Negative Negative 04/09/2024 5:13 PM [facility] Ketone UA Negative Negative 04/09/2024 5:13 PM [facility] Bilirubin UA Negative Negative 04/09/2024 5:13 PM [facility] Blood UA 2+(A) Negative 04/09/2024 5:13 PM [facility] Nitrite UA Negative Negative 04/09/2024 5:13 PM [facility] Leukocyte Esterase Negative Negative 04/09/2024 5:13 PM [facility] Urobilinogen UA Negative Negative mg/dL 04/09/2024 5:13 PM [facility] RBC UA 0-2 None Seen, 0-2, 3-5 /HPF 04/09/2024 5:13 PM [facility] WBC UA 0-5 None Seen, 0-5 /HPF 04/09/2024 5:13 PM [facility] Squamous Epithelial Cells UA None Seen None Seen, 0-2, 3-5 /HPF 04/09/2024 5:13 PM [facility] Mucus UA 3+ /LPF 04/09/2024 5:13 PM [facility] Hyaline Casts UA 11-20(A) None Seen, 0-2 /LPF 04/09/2024 5:13 PM [facility] Urine URINE SPECIMEN OBTAINED BY CLEAN CATCH PROCEDURE / Unknown Collection / Unknown 04/09/2024 4:02 PM CDT 04/09/2024 4:33 PM CDT Narrative [facility] - 04/09/2024 5:13 PM CDT Lindsay León MD LAB - URINALYSIS ORD ERABLES [facility] [address] [place] [address], [place] [phone] * CYSTATIN C WITH EGFR (04/09/2024 4:00 PM CDT) Creatinine 1.15 0.69 - 1.22 mg/dL 04/10/2024 11:59 PM CDT [facility] ([facility]) Cystatin C 0.82 0.61 - 0.95 mg/L 04/10/2024 11:59 PM CDT [facility] ([facility]) eGFR by CKD-EPI 101 11:59 PM CDT [facility] ([facility]) Comment: INTERPRETIVE INFORMATION: Cystatin and Creatinine with [...] CKD (Kidney Int Suppl 2013;3:1-150) Performed By: [employer] [address] [place] [address] Senior Android Developer: Huseyin Roque MD, PhD CLIA Number: [id number] Blood BLOOD SPECIMEN / Unknown Lab Venipuncture / Unknown 04/09/2024 4:00 PM CDT 04/09/2024 4:31 PM CDT Lindsay León MD LAB - CHEMISTRY NARENDRA ZELAYA Performing Organization Address [facility]/ZIP Co de Phone Number [facility] ([facility]) [address] [place] [address] * PTH INTACT W/O CALCIUM (04/09/2024 4:00 PM CDT) Pathologist [facility] PTH Intact 43.6 8.0 - 77.0 pg/mL 04/09/2024 5:10 PM CDT [facility] Blood BLOOD SPECIMEN / Unknown Lab Venipuncture / Unknown 04/09/2024 4:00 PM CDT 04/09/2024 4:37 PM CDT Lindsay León MD LAB - CHEMISTRY NARENDRA ZELAYA Performing Organization Address City/[facility]/ZIP Co de Phone Number [address] [address], [facility] [phone] * (ABNORMAL) VITAMIN D 25-HYDROXY (04/09/2024 4:00 PM CDT) Only the most recent of2 resultswithin the time period is included. Vitamin D, 25 Hydroxy >100.0(H) 30.0 - 80.0 ng/mL 04/09/2024 5:24 PM CDT [facility] Comment: The recommendations for 25-Hydroxy Vitamin [...] León MD LAB - CHEMISTRY NARENDRA ZELAYA [facility] Organization Address [facility]/State/[facility] Co de Phone Number [facility] [address] [place] [address], [facility] [phone] * (ABNORMAL) CBC WITH DIFFERENTIAL (04/09/2024 4:00 PM CDT) Only the most recent of4 resultswithin the time period is included. WBC 5.4 4.0 - 10.7 x10E9/L 04/09/2024 4:48 PM CDT [facility] RBC Count 5.35 4.30 - 5.80 x10E12/L 04/09/2024 4:48 PM CDT [facility] Hemoglobin 14.3 13.3 - 17.5 g/dL 04/09/2024 4:48 PM CDT [facility] Hematocrit 43.1 38.7 - 51.1 % 04/09/2024 4:48 PM [facility] MCV 80.6 80.0 - 98.0 fL 04/09/2024 4:48 PM [facility] MCH 26.7 26.7 - 33.6 pg 04/09/2024 4:48 PM [facility] MCHC 33.2 31.7 - 36.3 g/dL 04/09/2024 4:48 PM [facility] RDW-CV 13.5 11.3 - 14.8 % 04/09/2024 4:48 PM [facility] Platelet Count 307 150 - 420 x10E9/L 04/09/2024 4:48 PM [facility] MPV 9.3 7.8 - 11.4 fL 04/09/2024 4:48 PM [facility] Neutrophil % 48.5 41.0 - 74.0 % 04/09/2024 4:48 PM [facility] Lymphocyte % 36.2 17.0 - 47.0 % 04/09/2024 4:48 PM [facility] Monocyte % 11.4(H) 3.0 - 11.0 % 04/09/2024 4:48 PM [facility] Eosinophil % 3.0 0.0 - 7.0 % 04/09/2024 4:48 PM [facility] Basophil % 0.7 0.0 - 1.6 % 04/09/2024 4:48 PM [facility] Immature Granulocytes % 0.2 0.0 - 1.0 % 04/09/2024 4:48 PM [facility] Neutrophil Absolute 2.63 1.60 - 7.50 x10E9/L 04/09/2024 4:48 PM [facility] Lymphocyte Absolute 1.96 1.00 - 4.40 x10E9/L 04/09/2024 4:48 PM [facility] Monocyte Absolute 0.62 0.15 - 1.00 x10E9/L 04/09/2024 4:48 PM [facility] Eosinophil Absolute 0.16 0.00 - 0.60 x10E9/L 04/09/2024 4:48 PM [facility] Basophil Absolute 0.04 0.00 - 0.13 x10E9/L 04/09/2024 4:48 PM [facility] Blood BLOOD SPECIMEN / Unknown Lab Venipuncture / Unknown 04/09/2024 4:00 PM CDT 04/09/2024 4:37 PM CDT Lindsay León MD LAB - HEMATOLOGY ORD ERABLES [facility] [address] [place] [address], [facility] [phone] * (ABNORMAL) RENAL FUNCTION PANEL (04/09/2024 4:00 PM CDT) Only the most recent of2 resultswithin the time period is included. BUN 9 7 - 26 mg/dL 04/09/2024 5:07 PM [facility] Creatinine 1.22(H) 0.71 - 1.16 mg/dL 04/09/2024 5:07 PM [facility] Sodium 140 136 - 145 mmol/L 04/09/2024 5:07 PM [facility] Potassium 3.4(L) 3.5 - 4.5 mmol/L 04/09/2024 5:07 PM [facility] Chloride 106 98 - 107 mmol/L 04/09/2024 5:07 PM [facility] CO2 25 22 - 29 mmol/L 04/09/2024 5:07 PM [facility] Glucose 86 70 - 115 mg/dL 04/09/2024 5:07 PM [facility] Albumin 3.7 3.4 - 5.0 g/dL 04/09/2024 5:07 PM [facility] Calcium 9.3 8.4 - 10.2 mg/dL 04/09/2024 5:07 PM [facility] Phosphorus 2.1(L) 2.8 - 5.1 mg/dL 04/09/2024 5:07 PM [facility] Anion Gap 9 6 - 16 04/09/2024 5:07 PM [facility] BUN/Creatinine Ratio 7 7 - 23 04/09/2024 5:07 PM CDT [facility] Osmolality Calculated 288 275 - 295 mOsm/kg 04/09/2024 5:07 PM CDT [facility] eGFR by CKD-EPI 79(L) >=90 mL/min/1.7 3 m2 04/09/2024 5:07 PM CDT [facility] Blood BLOOD SPECIMEN / Unknown Lab Venipuncture / Unknown 04/09/2024 4:00 PM CDT 04/09/2024 4:37 PM CDT Lindsay León MD LAB - CHEMISTRY NARENDRA ZELAYA [address] [address], [facility] [phone] * MAGNESIUM BLOOD (04/09/2024 4:00 PM CDT) Magnesium 1.9 1.6 - 2.6 mg/dL 04/09/2024 5:07 PM CDT [facility] Blood BLOOD SPECIMEN / Unknown Lab Venipuncture / Unknown 04/09/2024 4:00 PM CDT 04/09/2024 4:37 PM CDT Lindsay León MD LAB - CHEMISTRY NARENDRA ZELAYA [address] [address], [place] [phone] * (ABNORMAL) BASIC METABOLIC PANEL (CALCIUM TOTAL) [...] 7:14 AM CDT Performed at: ??01 - [facility] ??[id number] [employer] Counselor: Isaac Galindo PhD, Phone: ??[phone] Nevaeh Rain HYGIENE TEACHER-CLOTH BEAMER LAB - CHEMISTR Y ORDERABLES Performing Organization Address [facility] Co de Phone Number [facility] INSURANCE BILL [address] [place] [address] * HIV-1 HIV-2 ANTIBODY + HIV P24 AG PANEL (02/26/2024 12:56 PM CDT) [facility] Signature HIV Screen 4th Generation w Reflex Non Reactive Non Reactive [facility] INSURANCE BILL Comment: HIV-1/HIV-2 antibodies and HIV-1 p24 antigen were NOT detected. There is no laboratory evidence of HIV infection. HIV Negative Blood BLOOD SPECIMEN / Unknown 02/26/2024 12:56 PM CDT 02/26/2024 Narrative [facility] INSURANCE BILL - 02/27/2024 8:35 PM CDT Performed at: ??02 - [address] ??[id number] [employer] Counselor: Isaac Galindo PhD, Phone: ??[phone] Resulting Agency Comment Lab Testing performed at: [facility] ??[facility] [id number] Nevaeh Rain HYGIENE TEACHER-CLOTH BEAMER LAB - CHEMISTR Y ORDERABLES Performing Organization Address [facility] Co de Phone Number [facility] [address] [place] [address] * TREPONEMA PALLIDUM POS REFLX RPR (02/26/2024 12:56 PM CDT) T pallidum Antibody (TP-PA) Non Reactive Non Reactive [facility] INSURANCE BILL Blood BLOOD SPECIMEN / Unknown 02/26/2024 12:56 PM CDT 02/26/2024 Narrative [facility] INSURANCE BILL - 02/27/2024 8:35 PM CDT Performed at: ??01 - [facility] [address] ??[id number] [employer] Counselor: Jackie Bailey MD, Phone: ??[phone] Nevaeh D Koffi [facility] LAB - SEROLOGY ORDERABLES Performing Organization Address City/[facility]/ZIP Co de Phone Number [facility] INSURANCE BILL [address] [place] [address] * CHLAMYDIA + GC + TRICH DNA AMPL (02/26/2024 12:56 PM CDT) Pathologist [facility] Chlamydia trachomatis GREGG Negative Negative [facility] INSURANCE BILL GC DNA Probe Negative Negative [facility] INSURANCE BILL Trichomonas vaginalis by GREGG Negative Negative [facility] INSURANCE BILL Microbiology URINE / Unknown 02/26/2024 1 2:56 PM CDT 02/26/2024 Comment:UR Narrative [facility] INSURANCE BILL - 02/28/2024 7:11 AM CDT Performed at: ??01 - [facility] ??[id number] [employer] Counselor: Ann Gerber MD, Phone: ??[phone] [facility] - MICROBIO LOGY ORDERABLES [facility] INSURANCE BILL [address] [place] [address] * IRON + TIBC + FERRITIN (02/26/2024 [...] 12:36 PM CDT Performed at: ??01 - [facility] ??[id number] [employer] Counselor: Isaac Galindo PhD, Phone: ??[phone] Nevaeh Bill Rain HYGIENE TEACHER-CLOTH BEAMER LAB - CHEMISTR Y ORDERABLES Performing Organization Address City/[facility] Co de Phone Number [facility] INSURANCE BILL [address] [place] [address] * VITAMIN B12 (02/26/2024 12:55 PM CDT) Vitamin B12 707 232 - 1,245 pg/mL [facility] INSURANCE BILL Blood BLOOD SPECIMEN / Unknown 02/26/2024 12:55 PM CDT 02/26/2024 Narrative [facility] INSURANCE BILL - 02/28/2024 5:36 AM CDT Performed at: ??01 - [facility] ??[id number] [employer] Counselor: Isaac Galindo PhD, Phone: ??[phone] Nevaeh Rain [facility] LAB - CHEMISTR Y ORDERABLES Performing Organization Address City/[facility] de Phone Number [facility] INSURANCE BILL [address] [place] [address] * PTH INTACT (07/23/2023 2:19 PM MRI TECHNICIAN) PTH Intact 28 15 - 65 pg/mL [facility] INSURANCE BILL Comment:FASTING Blood BLOOD SPECIMEN / Unknown 07/23/2023 2:19 PM MRI TECHNICIAN 07/23/2023 Narrative Resulting Agency Comment Lab Testing performed at: [facility] ??[facility] [id number] Nevaeh Rain HYGIENE TEACHER-CLOTH BEAMER LAB - CHEMISTR Y ORDERABLES Performing Organization Address City/[facility]/ZIP Co de Phone Number [facility] INSURANCE BILL [address] [place] [address] * HEMOGLOBIN A1C (07/23/2023 2:19 PM MRI TECHNICIAN) Hemoglobin A1c 5.6 4.8 - 5.6 % [facility] INSURANCE BILL Comment: ? . ? Prediabetes: 5.7 - 6.4 ? Diabetes: >6.4 ? Glycemic control for adults with diabetes: <7.0 FASTING Blood BLOOD SPECIMEN / Unknown 07/23/2023 2:19 PM MRI TECHNICIAN 07/23/2023 Narrative Resulting Agency Comment Lab Testing performed at: [facility] [address] [facility] ??[facility] [id number] Nevaeh Rain HYGIENE TEACHER-CLOTH BEAMER LAB - CHEMISTR Y ORDERABLES Performing Organization Address [facility] de Phone Number [facility] INSURANCE BILL [address] [place] [address] * (ABNORMAL) COMPREHENSIVE METABOLIC PANEL (07/23/2023 2:19 PM MRI TECHNICIAN) Only the most recent of2 resultswithin the [...] BLOOD SPECIMEN / Unknown 07/23/2023 2:19 PM MRI TECHNICIAN 07/23/2023 Narrative Resulting Agency Comment Lab Testing performed at: [employer] [address] [facility] ??[facility] [id number] Nevaeh Rain HYGIENE TEACHER-CLOTH BEAMER LAB - CHEMISTR Y ORDERABLES Performing Organization Address City/[facility] Co de Phone Number [facility] INSURANCE BILL [address] [place] [address] * TSH (07/23/2023 2:19 PM MRI TECHNICIAN) TSH 2.680 0.450 - 4.500 uIU/mL [facility] INSURANCE BILL Comment:FASTING Blood BLOOD SPECIMEN / Unknown 07/23/2023 2:19 PM MRI TECHNICIAN 07/23/2023 Narrative Resulting Agency Comment Lab Testing performed at: [facility] ??[facility] [id number] Nevaeh Rain HYGIENE TEACHER-CLOTH BEAMER LAB - CHEMISTR Y ORDERABLES [facility] INSURANCE BILL [address] [place] [address] * (ABNORMAL) LIPID PROFILE (07/23/2023 2:19 PM MRI TECHNICIAN) Cholesterol 201(H) 100 - 199 mg/dL [facility] [...] BLOOD SPECIMEN / Unknown 07/23/2023 2:19 PM MRI TECHNICIAN 07/23/2023 Narrative Resulting Agency Comment Lab Testing performed at: [facility] [address] [facility] ??[facility] [phone] Nevaeh Rain [employer] [facility] - CHEMISTR Y ORDERABLES [facility] INSURANCE BILL [address] [place] [address] * CARDIAC EKG ORDER (04/24/2023 11:38 AM MRI TECHNICIAN) Narrative 04/24/2023 11:38 AM MRI TECHNICIAN Ordered by an unspecified provider. Scanned Document CARDIAC SERVICES ORD ERABLES * EKG 12-LEAD (04/23/2023 9:20 AM MRI TECHNICIAN) Only the most recent of2 resultswithin the time period is included. Ventricular Rate 71 BPM [facility] Atrial Rate 71 BPM [facility] P-R Interval 146 ms [facility] QRS Duration ms 98 ms [facility] Q-T Interval ms 394 ms [facility] QTC Calculation (Bezet) 428 ms SL MUSE Calculated P Roby 40 degrees [facility] MUSE Calculated R Roby 88 degrees [facility] MUSE Calculated T Roby -5 degrees [facility] Interpretation EKG NORMAL SINUS RHYTHM WITH SINUS ARRHYTHMIA T WAVE ABNORMALITY, CONSIDER INFERIOR ISCHEMIA ABNORMAL ECG WHEN COMPARED WITH ECG OF 22-APR-2023 21:47, HEART RATE DECREASED BY 49 BPM Confirmed by JEROD ??JORGE L DORANTES ([id number]) on 04/30/2023 7:04:39 PM [facility] 04/23/2023 9:20 AM MRI TECHNICIAN 04/30/2023 7:04 PM MRI TECHNICIAN John Villavicencio MD ECG ORDERABLES H MUSE * D-DIMER (04/23/2023 9:09 AM MRI TECHNICIAN) Pathologist [facility] D-Dimer Quantitative <0.27 <=0.50 mcg/mL FEU 04/23/2023 10:04 AM MRI TECHNICIAN [facility] Comment: In the absence of [...] Unknown Venipuncture / Unknown 04/23/2023 9:09 AM MRI TECHNICIAN 04/23/2023 9:34 AM MRI TECHNICIAN John Villavicencio MD LAB - COAGULATION OR DERABLES [facility] [address] [place] [address], [facility] [phone] * TSH REFLEX FREE T4 (04/23/2023 6:50 AM MRI TECHNICIAN) TSH 1.791 0.350 - 4.940 uIU/mL 04/23/2023 7:40 AM MRI TECHNICIAN [facility] Blood BLOOD SPECIMEN / Unknown Venipuncture / Unknown 04/23/2023 6:50 AM MRI TECHNICIAN 04/23/2023 6:55 AM MRI TECHNICIAN John Villavicencio MD LAB - CHEMISTRY [facility] [address] [place] [address], [facility] [phone] * XR CHEST 1VW PORTABLE (04/22/2023 9:46 PM MRI TECHNICIAN) Anatomical Region Laterality Modality Chest Radiographic Griselda ging 04/22/2023 10:1 4 PM MRI TECHNICIAN Impressions 04/22/2023 10:36 PM MRI TECHNICIAN IMPRESSION: No acute pulmonary process. Report dictated by John Joseph DO (plant operations vice president). I, Simi Davis MD have personally reviewed and interpreted this examination/study. > Interpreting Provider: Simi Davis MD on 04/22/2023 10:36 PM Narrative 04/22/2023 10:36 PM MRI TECHNICIAN PROCEDURE: ??XR CHEST 1VW PORTABLE, DATE/TIME OF EXAM: ??04/22/2023 9:46 PM, LOCATION ??[facility] INDICATION: R06.02: SOB (shortness of breath) ADDITIONAL CLINICAL INFORMATION: Ordering Provider Reason For Exam: ??injury COMPARISON: None. FINDINGS: There is no focal consolidation, pleural effusion, or pneumothorax. The cardiomediastinal silhouette is normal. The visible bony thorax is intact. Procedure Note Simi Davis MD - 04/22/2023 PROCEDURE: XR CHEST 1VW PORTABLE, DATE/TIME OF EXAM: 04/22/2023 9:46PM, LOCATION [facility] INDICATION: R06.02: SOB (shortness of breath) ADDITIONAL CLINICAL INFORMATION: Ordering Provider Reason For Exam: injury COMPARISON: None. FINDINGS: There is no focal consolidation, pleural effusion, or pneumothorax. The cardiomediastinal silhouette is normal. The visible bony thorax isintact. IMPRESSION: No acute pulmonary process. Report dictated by John Joseph DO (plant operations vice president). I, Simi Davis MD have personally reviewed and interpreted this examination/study. > Interpreting Provider: Simi Davis MD on 0:36 PM Roderick Enciso MD DIAGNOSTIC IMAGING O [facility] Care Teams Constitutional Law Professor Relationship Specialty Start Date End Date Nevaeh Rain, HYGIENE TE[employer]ER-[employer] BE[employer]ER [address] [facility] [address] [place] [address] PCP - General Nurse Practitioner 06/27/23
== END 2024-07-15 19:04 | disposition left against medical advice (07) ==
DX: Z53.21 Procedure and treatment not carried out due to patient leaving prior to being seen by health care provider (principal)
CPT/HCPCS: 99199